=== PATIENT | female | born 1980 | race Caucasian/White ===

== ENCOUNTER 2019-05-01 07:58 | Inpatient (IN) ==
[2019-05-01] MEDS ORDERED: SODIUM CHLORIDE 0.9% 1000ML 1,000 ML IV SCH ×3 (08:30→18:45)
[2019-05-01] MEDS ORDERED: SODIUM CHLORIDE 0.9% 500 ML IV SCH (08:30)
[2019-05-01] MEDS ORDERED: ONDANSETRON INJ 2 MG/ML 2 ML VIAL IV STA (08:52)
[2019-05-01 09:30] LABS: Hemoglobin 12.3 g/dL (12.0-16.0); Mean Corpuscular Hemoglobin 30.3 pg (25-34); Mean Corpuscular Hgb Conc 33.2 g/dL (32-36); Mean Corpuscular Volume 91.1 fL (80-100); Mean Platelet Volume 9.9 fL (7.4-10.4); Platelet Count 361 K/uL (130-400); RDW Coefficient of Variation 13.2 % (11.5-14.5); RDW Standard Deviation 43.8 fL (36.4-46.3); Red Blood Count 4.06 M/uL (4.2-5.4); White Blood Count 17.59 K/uL (4.8-10.8)
[2019-05-01 09:52] LABS: Pregnancy Test, Serum Negative (Negative)
--- NOTE | 2019-05-01 09:52 | CT Scan Report ---
CT head/brain wo con CLINICAL HISTORY: 39 years-old Female with AMS. Acutely altered mental status TECHNIQUE: Multiple axial CT images of the head were obtained without contrast. A dose lowering tech nique was utilized adhering to the principles of ALARA. CT DOSE: 1003.45 mGycm COMPARISON: None. FINDINGS: Study is mildly motion degraded. No acute intracranial hemorrhage, midline shift, intracranial mass, hydrocephalus, territorial ischemia or abnormal extra-axial collection. The calvarium is intact. The paranasal sinuses, mastoid air cells, and middle ear cavities are clear . IMPRESSION: No acute intracranial abnormality. The above report was generated using voice recognition software. It may contain grammatical, syntax o r spelling errors. Electronically signed by: Mark Zavaleta M.D. 05/01/2019 9:50 AM
[2019-05-01 09:54] LABS: Basophils # (auto) 0.03 K/uL (0-0.2); Basophils % (auto) 0.2 %; Echinocytes 1+; Immature Granulocytes # (auto) 0.05 K/uL (0.00-0.02); Immature Granulocytes % (auto) 0.3 %; Lymphocytes # (auto) 0.91 K/uL (1.2-3.4); Lymphocytes % (auto) 5.2 %; Monocytes # (auto) 1.42 K/uL (0.11-0.59); Monocytes % (auto) 8.1 %; Neutrophils # (auto) 15.18 K/uL (1.4-6.5); Neutrophils % (auto) 86.2 %
[2019-05-01 09:57] LABS: Albumin Globulin Ratio 1.1 (0.9-2); Albumin Level 3.8 gm/dl (3.4-5.0); Alkaline Phosphatase 114 U/L (45-117); Aspartate Aminotransferase 20 U/L (15-37); Bilirubin,Total 0.5 mg/dl (0.2-1); Blood Urea Nitrogen 24 mg/dl (7-18); Calcium 9.5 mg/dl (8.5-10.1); Carbon Dioxide 14 mmol/L (21-32); Chloride 103 mmol/L (98-107); Est GFR (African American) 85.9; Est GFR (Non-African American) 74.1; Globulin 3.5 gm/dl (2.5-4.0); Glucose 444 mg/dl (70-99); Magnesium 2.2 mg/dl (1.8-2.4); Potassium 4.6 mmol/L (3.5-5.1); Sodium 137 mmol/L (136-145); Total Protein 7.3 gm/dl (6.4-8.2)
[2019-05-01 10:02] LABS: Alanine Aminotransferase 21 U/L (12-78); Thyroid Stimulating Hormone 0.865 uIu/ml (0.300-4.500); Troponin I < 0.015 ng/ml (0-0.045)
[2019-05-01] MEDS ORDERED: SODIUM CHLORIDE 0.9% 1000ML 1,000 ML IV ONE (10:08)
--- NOTE | 2019-05-01 10:19 | XRay Report ---
SINGLE VIEW CHEST CLINICAL HISTORY: Generalized weakness. FINDINGS: 2 AP, portable, upright chest radiographs are obtained. No prior studies are available for comparison at the time of dictation. The examination is degraded by portable technique and patient ro tation. The cardiomediastinal silhouette is unremarkable. The lungs and pleural spaces are clear. No pneumothorax is seen. The bony thorax is grossly intact. IMPRESSION: No active disease in the chest. Electronically signed by: Surya Alatorre M.D. 05/01/2019 10:17 AM
[2019-05-01 10:20] LABS: Appearance Urine Clear (Clear); Bilirubin Urine Negative (Negative); Blood Urine Negative (Negative); Color Urine Yellow; Glucose Urine UA 3+ (Negative); Leukocyte Esterase Urine Negative (Negative); Nitrite Urine Negative (Negative); Protein Urine Negative (Negative); Specific Gravity Urine 1.028 (1.000-1.030); Urobilinogen Urine Negative (Negative)
[2019-05-01 10:27] LABS: Ketones Urine 4+ (Negative)
[2019-05-01] MEDS ORDERED: MODERATE STRESS LEVEL ONE (10:33)
[2019-05-01] MEDS ORDERED: INSULIN PROTOCOL GOAL RANGE ONE (10:33)
[2019-05-01 10:44] LABS: Amphetamines+Metham, Urine Pos (Neg); Barbiturates, Urine Neg (Neg); Benzodiazepine, Urine Neg (Neg); Cocaine, Urine Neg (Neg); MDMA (Ecstacy), Urine Neg (Neg); Methadone, Urine Neg (Neg); Opiate, Urine Neg (Neg); Phencyclidine, Urine Neg (Neg)
[2019-05-01] MEDS ORDERED: INSULIN REGULAR 250 UNITS in SODIUM CHLORIDE 0.9% 247.5 ML IV SCH ×2 (10:45→13:32)
[2019-05-01] MEDS ORDERED: INSULIN ASPART 100 UNITS/ML 3 ML PEN SC SCH (11:30)
[2019-05-01] MEDS ORDERED: NovoLIN-R BOLUS FROM BAG IV ONE (11:30)
--- NOTE | 2019-05-01 12:09 | History & Physical Report ---
Date of Service May 01, 2019 Assessment & Plan (1) DKA (diabetic ketoacidoses): Patient with longstanding history of type 1 diabetes, insulin pump in place. She follows with endocrinology and reports that her pump is been malfunctioning for the last few weeks. She presents today with altered mental status. Labs reveal hyperglycemia with glucose = 444, anion gap = 20, serum bicarb = 14, patient with ketones and glucose on UA. Chest x-ray with no evidence of pneumonia, UA does not suggest infection. -Admit to PCU -Check VBG and serum osmolality -BMP/Mg/PO4/VBG q 4 hours. Potassium repletion as needed -N.p.o. for now -Continue aggressive IV fluid resuscitation. Will administer additional 1 L normal saline followed by normal saline at 150 mL/h with 20 mEq KCl -Insulin drip per protocol. Moderate stress level. DKA goal range -Diabetes education Present on Admission?: Yes (2) Migraine: Patient reports history of migraine. Presently without headache. -Monitor for headache Urine toxicology screen positive for amphetamines. Uncertain of patient's home medications. Result may indicate cross-reactivity versus true methamphetamine use. Patient denies recreational drug use. -Obtain records from PCP -Monitor for withdrawal symptoms FENnormal saline x1 L bolus followed by 150 mL/h with potassium, BMP/Mg/Phos every 4 hours per protocol, replete as needed, NPO for now. Smoking cessation counseling Ppx - Low risk for DVT. No ppx indicated Code - Full per schedule with patient Dispoadmit to PCU for DKA management Present on Admission?: Yes History of Present Illness Chief Complaint: DKA Primary Care Provider: NO PCP Gita Tracy is a 39-year-old female with history of type 1 diabetes since age 12, insulin pump in place, presenting with DKA. Patient is somnolent but arousable and is able to answer most questions appropriately at this time. However, is overall a poor historian. She reports that her insulin pump has not been functioning properly for at least the last 2 weeks. She states that she has been feeling "ill", nausea and body aches for the last 14 to 15 days. She has had DKA in the past, believes her last episode was about a month ago. She follows with Dr. Cárdenas and Ms. Watson of endocrinology from [facility]. She denies fevers, chills, headache, visual change, abdominal pain, diarrhea, chest pain, shortness of breath, cough, wheeze. She is having some nausea and is requesting "diet pop". No additional complaints at this time. ER course: Normal saline x2L, NSS at 125mL/hr, Insulin pump ordered, not yet initiated Allergies Allergy/AdvReac Type Severity Reaction Status Date / Time Penicillins Allergy Severe Throat Unverified 05/01/19 10:32 swells shut Home Medications Home Medications Medication Instructions Recorded Confirmed Type Unobtainable 05/01/19 05/01/19 History Past Med/Surg History Medical History (Updated 05/01/19 @ 12:03 by Sobeida Lombardo DO) Diabetes type I Migraine Surgical History (Updated 05/01/19 @ 11:54 by Sobeida Lombardo DO) History of Family History (Updated 05/01/19 @ 11:54 by Sobeida Lombardo DO) Other Family history non-contributory Social History (Updated 05/01/19 @ 11:54 by Sobeida Lombardo DO) Preferred Language: Azerbaijani Communication Ability: Effective 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 Beliefs That Will Affect Care: None Current Living Situation: Significant Other Other Information That Helps Us Care for You: No Feels Safe at Home: Declines to Answer Safety Concerns: Feels Safe At This Time Smoking Status: Current every day smoker Tobacco Type: cigarettes ; Do You Dip or Chew Tobacco: No ; Second Hand Exposure: No ; Tobacco Cessation Education Requested by Patient: No Hx Alcohol Use: Yes Alcohol Intake Frequency: Holidays/Special Occasions Hx Substance Use: No Review of Systems Review of Systems: All systems reviewed & are unremarkable except as noted in HPI & below Physical Exam Physical Exam: General: patient somnolent, arousable, answering questions appropriately and following commands, NAD, non-toxic in appearance, AA&O x 4 Skin: warm, dry, intact, no rashes or lesions HEENT: NC/AT, PERRL, EOMI, anicteric sclera, conjunctiva without injection, external ear normal to inspection and nontender, nares patent, dry mucus membranes, dentition intact, no oropharyngeal lesions, neck supple, trachea midline, no LAD, no thyromegaly, no JVD Heart: +S1/S2, regular, tachycardic, 2/6 systolic ejection murmur at left sternal border, no rubs or gallops Lungs: equal air entry bilaterally, no rales/rhonchi/wheezes Abd: +BS, soft, NT/ND, no masses/organomegaly/ascites Ext: warm, 2+ pulses in UE/LE bilaterally, no clubbing/cyanosis or edema Neuro: nonfocal, patient AA&O x 4, speech intact, no facial droop, moving all extremities on command with equal strength 5/5 Results & Data Vital Signs (Past 12 Hours) Vital Signs Temp Pulse Resp BP Pulse Ox 05/01/19 10:00 117 H 24 133/79 99 05/01/19 09:30 119 H 24 147/87 H 100 05/01/19 09:00 116 H 19 146/94 H 05/01/19 08:30 122 H 17 129/99 100 05/01/19 08:25 100 05/01/19 08:18 36.6 C 123 H 20 138/90 100 05/01/19 08:12 116 H 22 138/90 100 Laboratory Results Lab Results 05/01/19 05/01/19 05/01/19 Range/Units 08:07 09:12 09:12 WBC 17.59 H (4.8-10.8) K/uL RBC 4.06 L (4.2-5.4) M/uL Hgb 12.3 (12.0-16.0) g/dL Hct 37.0 (37-47) % MCV 91.1 (80-100) fL MCH 30.3 (25-34) pg MCHC 33.2 (32-36) g/dL RDW Std Deviation 43.8 (36.4-46.3) fL RDW Coeff of Alisa 13.2 (11.5-14.5) % Plt Count 361 (130-400) K/uL MPV 9.9 (7.4-10.4) fL Immature Gran % (Auto) 0.3 % Neut % (Auto) 86.2 % Lymph % (Auto) 5.2 % Scott % (Auto) 8.1 % Eos % (Auto) 0.0 % Baso % (Auto) 0.2 % Immature Gran # (Auto) 0.05 H (0.00-0.02) K/uL Neut # (Auto) 15.18 H (1.4-6.5) K/uL Lymph # (Auto) 0.91 L (1.2-3.4) K/uL Scott # (Auto) 1.42 H (0.11-0.59) K/uL Eos # (Auto) 0.00 (0-0.5) K/uL Baso # (Auto) 0.03 (0-0.2) K/uL Echinocytes 1+ Sodium 137 (136-145) mmol/L Potassium 4.6 (3.5-5.1) mmol/L Chloride 103 (98-107) mmol/L Carbon Dioxide 14 L (21-32) mmol/L Anion Gap 20.0 H (3-11) BUN 24 H (7-18) mg/dl Creatinine 0.97 (0.6-1.2) mg/dl Est Cr Clr Drug Dosing Not Reportable Est GFR ( Amer) 85.9 Est GFR (Non-Af Amer) 74.1 BUN/Creatinine Ratio 25.0 H (10-20) Glucose 444 H* (70-99) mg/dl POC Glucose 419 H* (70-99) Calcium 9.5 (8.5-10.1) mg/dl Magnesium 2.2 (1.8-2.4) mg/dl Total Bilirubin 0.5 (0.2-1) mg/dl AST 20 (15-37) U/L ALT 21 (12-78) U/L Alkaline Phosphatase 114 (45-117) U/L Troponin I < 0.015 (0-0.045) ng/ml Total Protein 7.3 (6.4-8.2) gm/dl Albumin 3.8 (3.4-5.0) gm/dl Globulin 3.5 (2.5-4.0) gm/dl Albumin/Globulin Ratio 1.1 (0.9-2) Beta-Hydroxybutyric Acd Cancelled TSH 0.865 (0.300-4.500) uIu/ml HCG, Qual (Negative) Specimen Hemolysis Urine Color Urine Appearance (Clear) Urine pH (4.5-7.5) Ur Specific Frannie (1.000-1.030) Urine Protein (Negative) Urine Glucose (UA) (Negative) Urine Ketones (Negative) Urine Blood (Negative) Urine Nitrite (Negative) Urine Bilirubin (Negative) Urine Urobilinogen (Negative) Ur Leukocyte Esterase (Negative) Urine Opiates Screen (Neg) Ur Methadone, Qual (Neg) Urine Barbiturates (Neg) Ur Phencyclidine (PCP) (Neg) U Amphetamin/Meth Scrn (Neg) MDMA (Ecstasy) Screen (Neg) U Benzodiazepines Scrn (Neg) Ur Cocaine Metabolite (Neg) U Marijuana (THC) Screen (Neg) 05/01/19 05/01/19 05/01/19 Range/Units 09:12 10:04 10:04 WBC (4.8-10.8) K/uL RBC (4.2-5.4) M/uL Hgb (12.0-16.0) g/dL Hct (37-47) % MCV (80-100) fL MCH (25-34) pg MCHC (32-36) g/dL RDW Std Deviation (36.4-46.3) fL RDW Coeff of Alisa (11.5-14.5) % Plt Count (130-400) K/uL MPV (7.4-10.4) fL Immature Gran % (Auto) % Neut % (Auto) % Lymph % (Auto) % Scott % (Auto) % Eos % (Auto) % Baso % (Auto) % Immature Gran # (Auto) (0.00-0.02) K/uL Neut # (Auto) (1.4-6.5) K/uL Lymph # (Auto) (1.2-3.4) K/uL Scott # (Auto) (0.11-0.59) K/uL Eos # (Auto) (0-0.5) K/uL Baso # (Auto) (0-0.2) K/uL Echinocytes Sodium (136-145) mmol/L Potassium (3.5-5.1) mmol/L Chloride (98-107) mmol/L Carbon Dioxide (21-32) mmol/L Anion Gap (3-11) BUN (7-18) mg/dl Creatinine (0.6-1.2) mg/dl Est Cr Clr Drug Dosing Est GFR ( Amer) Est GFR (Non-Af Amer) BUN/Creatinine Ratio (10-20) Glucose (70-99) mg/dl POC Glucose (70-99) Calcium (8.5-10.1) mg/dl Magnesium (1.8-2.4) mg/dl Total Bilirubin (0.2-1) mg/dl AST (15-37) U/L ALT (12-78) U/L Alkaline Phosphatase (45-117) U/L Troponin I (0-0.045) ng/ml Total Protein (6.4-8.2) gm/dl Albumin (3.4-5.0) gm/dl Globulin (2.5-4.0) gm/dl Albumin/Globulin Ratio (0.9-2) Beta-Hydroxybutyric Acd TSH (0.300-4.500) uIu/ml HCG, Qual Negative (Negative) Specimen Hemolysis Urine Color Yellow Urine Appearance Clear (Clear) Urine pH 5.0 (4.5-7.5) Ur Specific Frannie 1.028 (1.000-1.030) Urine Protein Negative (Negative) Urine Glucose (UA) 3+ H (Negative) Urine Ketones 4+ H (Negative) Urine Blood Negative (Negative) Urine Nitrite Negative (Negative) Urine Bilirubin Negative (Negative) Urine Urobilinogen Negative (Negative) Ur Leukocyte Esterase Negative (Negative) Urine Opiates Screen Neg (Neg) Ur Methadone, Qual Neg (Neg) Urine Barbiturates Neg (Neg) Ur Phencyclidine (PCP) Neg (Neg) U Amphetamin/Meth Scrn Pos H (Neg) MDMA (Ecstasy) Screen Neg (Neg) U Benzodiazepines Scrn Neg (Neg) Ur Cocaine Metabolite Neg (Neg) U Marijuana (THC) Screen Neg (Neg) 05/01/19 Range/Units 11:07 WBC (4.8-10.8) K/uL RBC (4.2-5.4) M/uL Hgb (12.0-16.0) g/dL Hct (37-47) % MCV (80-100) fL MCH (25-34) pg MCHC (32-36) g/dL RDW Std Deviation (36.4-46.3) fL RDW Coeff of Alisa (11.5-14.5) % Plt Count (130-400) K/uL MPV (7.4-10.4) fL Immature Gran % (Auto) % Neut % (Auto) % Lymph % (Auto) % Scott % (Auto) % Eos % (Auto) % Baso % (Auto) % Immature Gran # (Auto) (0.00-0.02) K/uL Neut # (Auto) (1.4-6.5) K/uL Lymph # (Auto) (1.2-3.4) K/uL Scott # (Auto) (0.11-0.59) K/uL Eos # (Auto) (0-0.5) K/uL Baso # (Auto) (0-0.2) K/uL Echinocytes Sodium (136-145) mmol/L Potassium (3.5-5.1) mmol/L Chloride (98-107) mmol/L Carbon Dioxide (21-32) mmol/L Anion Gap (3-11) BUN (7-18) mg/dl Creatinine (0.6-1.2) mg/dl Est Cr Clr Drug Dosing Est GFR ( Amer) Est GFR (Non-Af Amer) BUN/Creatinine Ratio (10-20) Glucose (70-99) mg/dl POC Glucose 405 H* (70-99) Calcium (8.5-10.1) mg/dl Magnesium (1.8-2.4) mg/dl Total Bilirubin (0.2-1) mg/dl AST (15-37) U/L ALT (12-78) U/L Alkaline Phosphatase (45-117) U/L Troponin I (0-0.045) ng/ml Total Protein (6.4-8.2) gm/dl Albumin (3.4-5.0) gm/dl Globulin (2.5-4.0) gm/dl Albumin/Globulin Ratio (0.9-2) Beta-Hydroxybutyric Acd TSH (0.300-4.500) uIu/ml HCG, Qual (Negative) Specimen Hemolysis Urine Color Urine Appearance (Clear) Urine pH (4.5-7.5) Ur Specific Frannie (1.000-1.030) Urine Protein (Negative) Urine Glucose (UA) (Negative) Urine Ketones (Negative) Urine Blood (Negative) Urine Nitrite (Negative) Urine Bilirubin (Negative) Urine Urobilinogen (Negative) Ur Leukocyte Esterase (Negative) Urine Opiates Screen (Neg) Ur Methadone, Qual (Neg) Urine Barbiturates (Neg) Ur Phencyclidine (PCP) (Neg) U Amphetamin/Meth Scrn (Neg) MDMA (Ecstasy) Screen (Neg) U Benzodiazepines Scrn (Neg) Ur Cocaine Metabolite (Neg) U Marijuana (THC) Screen (Neg) Diagnostic Findings SINGLE VIEW CHEST CLINICAL HISTORY: Generalized weakness. FINDINGS: 2 AP, portable, upright chest radiographs are obtained. No prior studies are available for comparison at the time of dictation. The examination is degraded by portable technique and patient rotation. The cardiomediastinal silhouette is unremarkable. The lungs and pleural spaces are clear. No pneumothorax is seen. The bony thorax is grossly intact. IMPRESSION: No active disease in the chest. Electronically signed by: Surya Alatorre M.D. 05/01/2019 10:17 AM Dictated: 05/01/19 1016 Transcribed: 05/01/[address] head/brain wo con CLINICAL HISTORY: 39 years-old Female with AMS. Acutely altered mental status TECHNIQUE: Multiple axial CT images of the head were obtained without contrast. A dose lowering technique was utilized adhering to the principles of ALARA. CT DOSE: 1003.45 mGycm COMPARISON: None. FINDINGS: Study is mildly motion degraded. No acute intracranial hemorrhage, midline shift, intracranial mass, hydrocephalus, territorial ischemia or abnormal extra- axial collection. The calvarium is intact. The paranasal sinuses, mastoid air cells, and middle ear cavities are clear. IMPRESSION: No acute intracranial abnormality. The above report was generated using voice recognition software. It may contain grammatical, syntax or spelling errors. Electronically signed by: Mark Zavaleta M.D. 05/01/2019 9:50 AM Dictated: 05/01/19943 Transcribed: 05/01/19943 ECG Additional Comments: The study shows sinus tachycardia 115 bpm, normal axis, SC = 144, QRS = 64, QTc = 431, no acute ischemic changes Code Status & VTE Plan Code Status Full code VTE Prophylaxis Plan VTE Prophylaxis will be ordered: No Reason for no VTE drug order: Treatment not indicated Reason for no VTE mechanical prophylaxis: Treatment not indicated PG Care Time/CCT Total # of Minutes Spent Total Time Spent with Patient: Total time spent is greater than 50% in coordination of care (as documented) at patient's floor/unit and/or counseling patient: (1) DKA (diabetic ketoacidoses) Diabetes mellitus type: type 1 Diabetes mellitus complication detail: without coma Qualified Code(s): E10.10 - Type 1 diabetes mellitus with ketoacidosis without coma (2) Migraine Migraine type: unspecified Status migrainosus presence: without status migrainosus Intractability: not intractable Qualified Code(s): G43.909 - Migraine, unspecified, not intractable, without status migrainosus
[2019-05-01] MEDS ORDERED: ACETAMINOPHEN 325 MG TAB PO PRN (13:32)
[2019-05-01] MEDS ORDERED: PENDING D5 1/2NS+20mEq KCL IVF SCH (13:32)
[2019-05-01] MEDS ORDERED: DC ALL PREVIOUSLY ORDERED DIABETES MEDS ONE (13:32)
[2019-05-01] MEDS ORDERED: ONDANSETRON INJ 2 MG/ML 2 ML VIAL IV PRN (13:32)
[2019-05-01] MEDS ORDERED: DKA GOAL RANGE 150-250 mg/dl ONE (13:32)
[2019-05-01] MEDS ORDERED: PNEUMOCOCCAL Polysaccharide Vaccine 25mcg/0.5mL vial/Syr IM ONE (14:00)
[2019-05-01 14:01] LABS: Base Excess VBG -12.1 mEq/L; pH VBG 7.27 (7.36-7.41)
[2019-05-01] MEDS ORDERED: D5W AND 1/2NSS + 20MEQ KCL 20 MEQ/1,000 ML BAG IV SCH (14:15)
[2019-05-01 14:24] LABS: BUN Creatinine Ratio 23.5 (10-20); Creatinine Clr Calc Pharmacy 69.8 ml/min; Est GFR (African American) 96.6; Est GFR (Non-African American) 83.3; Magnesium 2.1 mg/dl (1.8-2.4); Phosphorus 2.5 mg/dl (2.5-4.9); Potassium 3.8 mmol/L (3.5-5.1)
[2019-05-01 14:28] LABS: Estimated Average Glucose 217 mg/dl; Hemoglobin A1C 9.2 % (4.5-5.6)
[2019-05-01] MEDS ORDERED: POTASSIUM CHLORIDE 20 MEQ in SODIUM CHLORIDE 0.9% 1000ML 1,000 ML IV SCH (15:00)
--- NOTE | 2019-05-01 15:04 | Emergency Department Note ---
Entered by Joel Good acting as a scribe for ED Provider Note CHIEF COMPLAINT: Hyperglycemia HISTORY OF PRESENT ILLNESS: The patient is a 39 year old female who presents to the Emergency Room with complaints of constant hyperglycemia that was noticed this morning shortly prior to arrival. Per the nursing note, the patient's significant other noticed that she had an altered mental status this morning as well as some nausea and vomiting. Per the nurse, the patient's BSG at home was 350 and when EMS arrived it had increased to 450. Upon arrival to the ED the patient's sugar was 419. The patient has had a history of diabetes since 2002 and has had incidents in the past where she could not control her sugars. HPI is limited secondary to patient's altered mental status. Pt denies LOC, headache, fevers, chills, diaphoresis, visual changes, neck pain, chest pain, breathing difficulties, abdominal pain, back pain, melena, hematochezia, urinary symptoms, numbness, weakness, lymphadenopathy, rash, or other complaints. REVIEW OF SYSTEMS: See HPI for pertinent positives and negatives. Limited secondary to patient's altered mental status. PMHx/PSHx: Diabetes, , Appendectomy SOCIAL HISTORY: Patient lives at home. Daily smoker. PHYSICAL EXAM: GENERAL: Awake, alert, well-appearing, in no distress HENT: Normocephalic, atraumatic. Oropharynx unremarkable. EYES: Normal conjunctiva. Sclera non-icteric. NECK: EJ in right neck. Non-tender. Supple. No nuchal rigidity. FROM. No masses. RESPIRATORY: Clear to auscultation. No wheezes. No rales. Normal respiratory effort. CARDIAC: Normal rate. Normal rhythm. No murmurs. No rubs. Extremities warm and well perfused. Pulses equal. No JVD. GI: Soft, non-distended. No tenderness to palpation. No rebound or guarding. No masses. RECTAL: Deferred. MUSCULOSKELETAL: Atraumatic. Chest examination reveals no tenderness. The back is symmetrical on inspection without obvious abnormality. There is no CVA tenderness to palpation. No joint edema. LOWER EXTREMITIES: Calves are equal size bilaterally and non-tender. No edema. No discoloration. NEURO: Normal sensorium. Lethargic but arouses easily to verbal stimuli, GCS 14. No sensory or motor deficits noted. SKIN: No rash or jaundice noted. EMERGENCY DEPARTMENT COURSE: 36: Past medical records reviewed. The patient was evaluated in room A04B, and a complete history and physical examination were performed. 0850: Shortly after the examination the patient tried to drink some water, however she became nauseous and vomited. 1035: I reassessed the patient and she is feeling better. I updated her on results and treatment plan and she is agreeable. 1045: I spoke to Dr. Lombardo - [facility] Hospitalist about the patient's case and she will be accepting her for further evaluation. MEDICAL DECISION MAKING: Nursing notes reviewed and agree them. The patient's history was concerning for altered mental status. Differential diagnosis: Etiologies such as infection, hypoglycemia, electrolyte abnormalities, cardiac sources, intracerebral event, toxicologic, neurologic, as well as others were entertained. Physical examination: As above. The patient was lethargic but easily arousable to voice. She denied any headache, chest pain, abdominal pain. No abdominal physical findings. ER treatment provided: IV Lock Normal saline hydration IV insulin On reassessment the patient felt better. Diagnostics interpretation by me: ECG: Sinus tachycardia without ischemia. The labs revealed a moderate leukocytosis on CBC. Chemistry panel revealed findings concerning for DKA. Troponin negative. Urine drug screen did reveal amphetamines. Urinalysis negative for infection. Patient is not . Imaging studies: Chest x-ray negative for acute process. Head CT negative for acute process. The patient had altered mental status and hyperglycemia. Laboratory findings are consistent with DKA. She was started on IV fluids and then IV insulin was initiated. Further management in the hospital will be necessary. Consultation: A consultation was placed with the hospitalist. The case was discussed and diagnostics were reviewed. The patient was evaluated in the ER for further treatment. CRITICAL CARE: I have personally spent greater than 35 minutes of critical care time in the direct management of this patient. This includes bedside care, interpretation of diagnostic studies, and testing, discussion with consultants, patient, and other required patient management activities. This 35 minutes is in excess of all separately billable procedures. IMPRESSION: Altered mental status DKA PLAN: Being evaluated by hospitalist The scribe's documentation has been prepared under my direction and personally reviewed by me in its entirety. I confirm that the note above accurately reflects all work, treatment, procedures, and medical decision making performed by me. 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 Beliefs That Will Affect Care: None Current Living Situation: Significant Other Feels Safe at Home: Declines to Answer Smoking Status: Current every day smoker Tobacco Type: cigarettes ; Second Hand Exposure: No ; Hx Alcohol Use: Yes Alcohol Intake Frequency: Holidays/Special Occasions Hx Substance Use: No Results & Data Vital Signs Vital Signs - 24 hr 05/01/19 08:12 05/01/19 08:18 05/01/19 08:25 Temperature 36.6 C Temperature Source Oral Pulse Rate 116 H 123 H Pulse Rate from SpO2 Sensor 114 H Pulse Rhythm Regular Pulse Strength Normal Respiratory Rate 22 20 Respiratory Effort / Characteristics Non-Labored Spontaneous Respiratory Depth Normal Respiratory Pattern Regular Blood Pressure 138/90 138/90 Blood Pressure Mean 109 106 Blood Pressure Position Lying Pulse Oximetry 100 100 100 Oxygen Delivery Method Room Air Sepsis New/Unexplained Change in Mental Status No Sepsis Action Taken by Nursing No Action Required 05/01/19 08:30 05/01/19 09:00 05/01/19 09:30 Temperature Temperature Source Pulse Rate 122 H 116 H 119 H Pulse Rate from SpO2 Sensor 122 H 119 H Pulse Rhythm Pulse Strength Respiratory Rate 17 19 24 Respiratory Effort / Characteristics Respiratory Depth Respiratory Pattern Blood Pressure 129/99 146/94 H 147/87 H Blood Pressure Mean 113 99 106 Blood Pressure Position Pulse Oximetry 100 100 Oxygen Delivery Method Sepsis New/Unexplained Change in Mental Status Sepsis Action Taken by Nursing 05/01/19 10:00 05/01/19 10:30 05/01/19 10:31 Temperature Temperature Source Pulse Rate 117 H 117 H 118 H Pulse Rate from SpO2 Sensor 118 H 118 H Pulse Rhythm Pulse Strength Respiratory Rate 24 21 21 Respiratory Effort / Characteristics Respiratory Depth Respiratory Pattern Blood Pressure 133/79 137/86 Blood Pressure Mean 88 103 Blood Pressure Position Pulse Oximetry 99 99 99 Oxygen Delivery Method Sepsis New/Unexplained Change in Mental Status Sepsis Action Taken by Nursing 05/01/19 11:00 05/01/19 11:01 05/01/19 11:30 Temperature Temperature Source Pulse Rate 120 H 120 H 122 H Pulse Rate from SpO2 Sensor 120 H 120 H Pulse Rhythm Pulse Strength Respiratory Rate 22 23 21 Respiratory Effort / Characteristics Respiratory Depth Respiratory Pattern Blood Pressure 130/79 120/80 Blood Pressure Mean 94 87 Blood Pressure Position Pulse Oximetry 100 100 Oxygen Delivery Method Sepsis New/Unexplained Change in Mental Status Sepsis Action Taken by Nursing 05/01/19 11:31 Temperature Temperature Source Pulse Rate 123 H Pulse Rate from SpO2 Sensor Pulse Rhythm Pulse Strength Respiratory Rate 23 Respiratory Effort / Characteristics Respiratory Depth Respiratory Pattern Blood Pressure Blood Pressure Mean Blood Pressure Position Pulse Oximetry Oxygen Delivery Method Sepsis New/Unexplained Change in Mental Status Sepsis Action Taken by Assisted Medications Current Medication List: was personally reviewed by me Laboratory Data Attestation: I reviewed the patient's lab results. Result diagrams: 05/01/19 09:12 05/01/19 13:32 Lab Results 05/01/19 05/01/19 05/01/19 Range/Units 08:07 09:12 09:12 WBC 17.59 H (4.8-10.8) K/uL RBC 4.06 L (4.2-5.4) M/uL Hgb 12.3 (12.0-16.0) g/dL Hct 37.0 (37-47) % MCV 91.1 (80-100) fL MCH 30.3 (25-34) pg MCHC 33.2 (32-36) g/dL RDW Std Deviation 43.8 (36.4-46.3) fL RDW Coeff of Alisa 13.2 (11.5-14.5) % Plt Count 361 (130-400) K/uL MPV 9.9 (7.4-10.4) fL Immature Gran % (Auto) 0.3 % Neut % (Auto) 86.2 % Lymph % (Auto) 5.2 % Dawson % (Auto) 8.1 % Eos % (Auto) 0.0 % Baso % (Auto) 0.2 % Immature Gran # (Auto) 0.05 H (0.00-0.02) K/uL Neut # (Auto) 15.18 H (1.4-6.5) K/uL Lymph # (Auto) 0.91 L (1.2-3.4) K/uL Dawson # (Auto) 1.42 H (0.11-0.59) K/uL Eos # (Auto) 0.00 (0-0.5) K/uL Baso # (Auto) 0.03 (0-0.2) K/uL Echinocytes 1+ Sodium 137 (136-145) mmol/L Potassium 4.6 (3.5-5.1) mmol/L Chloride 103 (98-107) mmol/L Carbon Dioxide 14 L (21-32) mmol/L Anion Gap 20.0 H (3-11) BUN 24 H (7-18) mg/dl Creatinine 0.97 (0.6-1.2) mg/dl Est Cr Clr Drug Dosing Not Reportable Est GFR ( Amer) 85.9 Est GFR (Non-Af Amer) 74.1 BUN/Creatinine Ratio 25.0 H (10-20) Glucose 444 H* (70-99) mg/dl POC Glucose 419 H* (70-99) Calcium 9.5 (8.5-10.1) mg/dl Magnesium 2.2 (1.8-2.4) mg/dl Total Bilirubin 0.5 (0.2-1) mg/dl AST 20 (15-37) U/L ALT 21 (12-78) U/L Alkaline Phosphatase 114 (45-117) U/L Troponin I < 0.015 (0-0.045) ng/ml Total Protein 7.3 (6.4-8.2) gm/dl Albumin 3.8 (3.4-5.0) gm/dl Globulin 3.5 (2.5-4.0) gm/dl Albumin/Globulin Ratio 1.1 (0.9-2) Beta-Hydroxybutyric Acd Cancelled TSH 0.865 (0.300-4.500) uIu/ml HCG, Qual (Negative) Specimen Hemolysis Urine Color Urine Appearance (Clear) Urine pH (4.5-7.5) Ur Specific [place] (1.000-1.030) Urine Protein (Negative) Urine Glucose (UA) (Negative) Urine Ketones (Negative) Urine Blood (Negative) Urine Nitrite (Negative) Urine Bilirubin (Negative) Urine Urobilinogen (Negative) Ur Leukocyte Esterase (Negative) Urine Opiates Screen (Neg) Ur Methadone, Qual (Neg) Urine Barbiturates (Neg) Ur Phencyclidine (PCP) (Neg) U Amphetamin/Meth Scrn (Neg) MDMA (Ecstasy) Screen (Neg) U Benzodiazepines Scrn (Neg) Ur Cocaine Metabolite (Neg) U Marijuana (THC) Screen (Neg) 05/01/19 05/01/19 05/01/19 Range/Units 09:12 10:04 10:04 WBC (4.8-10.8) K/uL RBC (4.2-5.4) M/uL Hgb (12.0-16.0) g/dL Hct (37-47) % MCV (80-100) fL MCH (25-34) pg MCHC (32-36) g/dL RDW Std Deviation (36.4-46.3) fL RDW Coeff of Alisa (11.5-14.5) % Plt Count (130-400) K/uL MPV (7.4-10.4) fL Immature Gran % (Auto) % Neut % (Auto) % Lymph % (Auto) % Dawson % (Auto) % Eos % (Auto) % Baso % (Auto) % Immature Gran # (Auto) (0.00-0.02) K/uL Neut # (Auto) (1.4-6.5) K/uL Lymph # (Auto) (1.2-3.4) K/uL [place] # (Auto) (0.11-0.59) K/uL Eos # (Auto) (0-0.5) K/uL Baso # (Auto) (0-0.2) K/uL Echinocytes Sodium (136-145) mmol/L Potassium (3.5-5.1) mmol/L Chloride (98-107) mmol/L Carbon Dioxide (21-32) mmol/L Anion Gap (3-11) BUN (7-18) mg/dl Creatinine (0.6-1.2) mg/dl Est Cr Clr Drug Dosing Est GFR ( Amer) Est GFR (Non-Af Amer) BUN/Creatinine Ratio (10-20) Glucose (70-99) mg/dl POC Glucose (70-99) Calcium (8.5-10.1) mg/dl Magnesium (1.8-2.4) mg/dl Total Bilirubin (0.2-1) mg/dl AST (15-37) U/L ALT (12-78) U/L Alkaline Phosphatase (45-117) U/L Troponin I (0-0.045) ng/ml Total Protein (6.4-8.2) gm/dl Albumin (3.4-5.0) gm/dl Globulin (2.5-4.0) gm/dl Albumin/Globulin Ratio (0.9-2) Beta-Hydroxybutyric Acd TSH (0.300-4.500) uIu/ml HCG, Qual Negative (Negative) Specimen Hemolysis Urine Color Yellow Urine Appearance Clear (Clear) Urine pH 5.0 (4.5-7.5) Ur Specific [place] 1.028 (1.000-1.030) Urine Protein Negative (Negative) Urine Glucose (UA) 3+ H (Negative) Urine Ketones 4+ H (Negative) Urine Blood Negative (Negative) Urine Nitrite Negative (Negative) Urine Bilirubin Negative (Negative) Urine Urobilinogen Negative (Negative) Ur Leukocyte Esterase Negative (Negative) Urine Opiates Screen Neg (Neg) Ur Methadone, Qual Neg (Neg) Urine Barbiturates Neg (Neg) Ur Phencyclidine (PCP) Neg (Neg) U Amphetamin/Meth Scrn Pos H (Neg) MDMA (Ecstasy) Screen Neg (Neg) U Benzodiazepines Scrn Neg (Neg) Ur Cocaine Metabolite Neg (Neg) U Marijuana (THC) Screen Neg (Neg) 05/01/19 Range/Units 11:07 WBC (4.8-10.8) K/uL RBC (4.2-5.4) M/uL Hgb (12.0-16.0) g/dL Hct (37-47) % MCV (80-100) fL MCH (25-34) pg MCHC (32-36) g/dL RDW Std Deviation (36.4-46.3) fL RDW Coeff of Alisa (11.5-14.5) % Plt Count (130-400) K/uL MPV (7.4-10.4) fL Immature Gran % (Auto) % Neut % (Auto) % Lymph % (Auto) % Dawson % (Auto) % Eos % (Auto) % Baso % (Auto) % Immature Gran # (Auto) (0.00-0.02) K/uL Neut # (Auto) (1.4-6.5) K/uL Lymph # (Auto) (1.2-3.4) K/uL [place] # (Auto) (0.11-0.59) K/uL Eos # (Auto) (0-0.5) K/uL Baso # (Auto) (0-0.2) K/uL Echinocytes Sodium (136-145) mmol/L Potassium (3.5-5.1) mmol/L Chloride (98-107) mmol/L Carbon Dioxide (21-32) mmol/L Anion Gap (3-11) BUN (7-18) mg/dl Creatinine (0.6-1.2) mg/dl Est Cr Clr Drug Dosing Est GFR ( Amer) Est GFR (Non-Af Amer) BUN/Creatinine Ratio (10-20) Glucose (70-99) mg/dl POC Glucose 405 H* (70-99) Calcium (8.5-10.1) mg/dl Magnesium (1.8-2.4) mg/dl Total Bilirubin (0.2-1) mg/dl AST (15-37) U/L ALT (12-78) U/L Alkaline Phosphatase (45-117) U/L Troponin I (0-0.045) ng/ml Total Protein (6.4-8.2) gm/dl Albumin (3.4-5.0) gm/dl Globulin (2.5-4.0) gm/dl Albumin/Globulin Ratio (0.9-2) Beta-Hydroxybutyric Acd TSH (0.300-4.500) uIu/ml HCG, Qual (Negative) Specimen Hemolysis Urine Color Urine Appearance (Clear) Urine pH (4.5-7.5) Ur Specific [place] (1.000-1.030) Urine Protein (Negative) Urine Glucose (UA) (Negative) Urine Ketones (Negative) Urine Blood (Negative) Urine Nitrite (Negative) Urine Bilirubin (Negative) Urine Urobilinogen (Negative) Ur Leukocyte Esterase (Negative) Urine Opiates Screen (Neg) Ur Methadone, Qual (Neg) Urine Barbiturates (Neg) Ur Phencyclidine (PCP) (Neg) U Amphetamin/Meth Scrn (Neg) MDMA (Ecstasy) Screen (Neg) U Benzodiazepines Scrn (Neg) Ur Cocaine Metabolite (Neg) U Marijuana (THC) Screen (Neg) Administered Medications Insulin Human Regular 250 (units/ Sodium Chloride) 250 mls @ 1 mls/hr IV .Q24H JEF; Protocol Stop: 05/31/19 10:44 Last Titration: 05/01/19 14:00 Dose: 1 units/hr, 1 mls/hr Documented by: [id number] Cosigned by: [id number] Titration: 05/01/19 12:50 Dose: 1.3 units/hr, 1.3 mls/hr Documented by: [id number] Cosigned by: [id number] Admin: 05/01/19 11:48 Dose: 1.3 units/hr, 1.3 mls/hr Documented by: [id number] Cosigned by: [id number] Discontinued Medications Sodium Chloride (Nss) 500 mls @ 999 mls/hr IV .Q31M JEF Stop: 05/01/19 09:00 Last Infusion: 05/01/19 09:42 Dose: 0 mls/hr Documented by: [id number] Admin: 05/01/19 09:00 Dose: 999 mls/hr Documented by: [id number] Sodium Chloride (Nss 1000ml) 1,000 mls @ 125 mls/hr IV .Q8H JEF Stop: 05/01/19 16:29 Last Infusion: 05/01/19 11:15 Dose: 125 mls/hr Documented by: [id number] Infusion: 05/01/19 10:13 Dose: 0 mls/hr Documented by: [id number] Admin: 05/01/19 09:45 Dose: 125 mls/hr Documented by: [id number] Sodium Chloride (Nss 1000ml) 1,000 mls @ 999 mls/hr IV .Q1H1M ONE Stop: 05/01/19 11:08 Last Infusion: 05/01/19 11:15 Dose: 0 mls/hr Documented by: [id number] Admin: 05/01/19 10:14 Dose: 999 mls/hr Documented by: [id number] Insulin Aspart (Novolog Flexpen) 0 units SC ACHS JEF Stop: 05/31/19 11:29 Last Admin: 05/01/19 13:36 Dose: Not Given Documented by: [id number] Cosigned by: [id number] Insulin Human Regular (Novolin R Bolus From Bag) 1.5 units IV ONE ONE Stop: 05/01/19 11:31 Last Admin: 05/01/19 11:49 Dose: 1.5 units Documented by: [id number] Cosigned by: [id number] Miscellaneous (Insulin Protocol Goal Range) 1 ea N/A ONE ONE Stop: 05/01/19 10:34 Last Admin: 05/01/19 11:49 Dose: 1 ea Documented by: [id number] Miscellaneous (Insulin Protocol Moderate Stress Level) 1 ea N/A ONE ONE Stop: 05/01/19 10:34 Last Admin: 05/01/19 11:49 Dose: 1 ea Documented by: [id number] Ondansetron HCl (Zofran) 4 mg IV NOW STA Stop: 05/01/19 08:53 Last Admin: 05/01/19 09:00 Dose: 4 mg Documented by: [id number] Imaging Data Radiologist's Impression: Radiology results as stated below per my review and the radiologist's interpretation: SINGLE VIEW CHEST CLINICAL HISTORY: Generalized weakness. FINDINGS: 2 AP, portable, upright chest radiographs are obtained. No prior studies are available for comparison at the time of dictation. The examination is degraded by portable technique and patient rotation. The cardiomediastinal si lhouette is unremarkable. The lungs and pleural spaces are clear. No pneumothorax is seen. The bony thorax is grossly intact. IMPRESSION: No active disease in the chest. Electronically signed by: Surya Alatorre M.D. 05/01/2019 10:[address] head/brain wo con CLINICAL HISTORY: 39 years-old Female with AMS. Acutely altered mental status TECHNIQUE: Multiple axial CT images of the head were obtained without contrast. A dose lowering technique was utilized adhering to the principles of ALARA. CT DOSE: 1003.45 mGycm COMPARISON: None. FINDINGS: Study is mildly motion degraded. No acute intracranial hemorrhage, midline shift, intracranial mass, hydrocephalus, territorial ischemia or abnormal extra- axial collection. The calvarium is intact. The paranasal sinuses, mastoid air cells, and middle ear cavities are clear. IMPRESSION: No acute intracranial abnormality. The above report was generated using voice recognition software. It may contain grammatical, syntax or spelling errors. Electronically signed by: Mark Zavaleta M.D. 05/01/2019 9:50 AM ECG Data Attestation: I personally reviewed and interpreted this ECG as follows: Indication: + altered mental status Rate (beats per minute): 115 Rhythm: sinus tachycardia ECG Intervals/blocks: + Normal QRS ECG [place]: + Normal ECG ST segments: no ST depression and no ST elevation ECG Findings: no PACs and no PVCs Blood Pressure Blood Pressure Findings: Elevated blood pressure Blood Pressure Disposition: Referred to patients primary care provider Discharge Plan Visit Data *Final* Discharge Date/Time: 05/01/19 12:50 Chief Complaint: Hyperglycemia ED Provider: Salinas Fernandez Discharge Problem: Altered mental status, DKA (diabetic ketoacidoses) Patient Disposition: Admitted As Inpatient Discharge Instructions Interventions: ED Discharge Assessment Last Done: 05/01/19 12:50 Discharge Problem: Altered mental status Qualifiers: Altered mental status type: unspecified Qualified Code(s): R41.82 - Altered mental status, unspecified DKA (diabetic ketoacidoses) Qualifiers: Diabetes mellitus type: other specified (including VIANNEY) Diabetes mellitus complication detail: without coma Qualified Code(s): E13.10 - Other specified diabetes mellitus with ketoacidosis without coma The scribe's documentation has been prepared under my direction and personally reviewed by me in its entirety. I confirm that the note above accurately reflects all work, treatment, procedures, and medical decision making performed by me.
[2019-05-01] MEDS: INSULIN ASPART 100 UNITS/ML 3 ML PEN SC SCH ×2 (16:58→21:11)
[2019-05-01 18:51] LABS: BUN Creatinine Ratio 20.9 (10-20); Calcium 8.4 mg/dl (8.5-10.1); Creatinine Clr Calc Pharmacy 71.4 ml/min; Est GFR (African American) 99.3; Est GFR (Non-African American) 85.7; Magnesium 2.1 mg/dl (1.8-2.4); Phosphorus 2.7 mg/dl (2.5-4.9); Potassium 4.5 mmol/L (3.5-5.1)
[2019-05-01] MEDS ORDERED: PHARMACY GLYCEMIC MGMT CONSULT PRN (21:18)
[2019-05-01] MEDS: D5W AND 1/2NSS + 20MEQ KCL 20 MEQ/1,000 ML BAG IV SCH (22:04)
[2019-05-01 22:38] LABS: BUN Creatinine Ratio 22.6 (10-20); Calcium 8.4 mg/dl (8.5-10.1); Creatinine Clr Calc Pharmacy 75.8 ml/min; Est GFR (African American) 106.8; Est GFR (Non-African American) 92.1; Phosphorus 2.4 mg/dl (2.5-4.9); Potassium 4.2 mmol/L (3.5-5.1)
[2019-05-02 01:51] LABS: BUN Creatinine Ratio 19.7 (10-20); Calcium 8.1 mg/dl (8.5-10.1); Est GFR (African American) 103.7; Est GFR (Non-African American) 89.5; Phosphorus 2.2 mg/dl (2.5-4.9); Potassium 3.9 mmol/L (3.5-5.1)
[2019-05-02 06:28] LABS: BUN Creatinine Ratio 19.1 (10-20); Calcium 8.3 mg/dl (8.5-10.1); Creatinine Clr Calc Pharmacy 83.3 ml/min; Est GFR (African American) 119.1; Est GFR (Non-African American) 102.8; Potassium 3.7 mmol/L (3.5-5.1)
[2019-05-02 06:31] LABS: Phosphorus 1.7 mg/dl (2.5-4.9)
[2019-05-02] MEDS: D5W AND 1/2NSS + 20MEQ KCL 20 MEQ/1,000 ML BAG IV SCH (07:23)
--- NOTE | 2019-05-02 07:27 | Hospitalist Progress Note ---
Date of Service May 02, 2019 Assessment & Plan (1) DKA (diabetic ketoacidoses): Gita Tracy is a 39 y/o female with hx of DM1 presenting for admission with DKA. Etiology apparently from non-functioning insulin pump. - Repeat lab work this AM, AG is now closed at 6 - Potassium WNL at 3.7 - Phosphorus 1.7 this AM; will repace with KPhos 30mmol. - Pharmacy Consult placed on admission - She is currently somnolent but arouses easily to stimuli; follow for improved mentation - IVF D5W / NSS + 20meq KCl @ 100ml/hr. - Follow I&O as volume depleted on presentation from disease process; Has received 3L IV as of this AM; 1L output. (2) Migraine: reported hx; no acute complaints of headaches this AM Subjective History limited by Somnolence. Gita is somnolent but arouses to stimuli and answers questions appropriately. She notes DM1 since age of 12. Apparently her insulin pump has not been working for the past 2 weeks. She notes prior hospitalization for same but denies recent. No other acute concerns. Physical Exam Constitutional: WD/WN, vitals as above Eyes: + anicteric sclerae ENMT: dry mucous membranes Neck: normal visual inspection and trachea midline Respiratory: normal respiratory effort, lungs clear to auscultation Cardiovascular: Rate/Rhythm: regular rhythm and + tachycardic Gastrointestinal (Abdomen): Inspection/Auscultation: normal bowel sounds; abdomen not distended Percussion/Palpation: abdomen soft; abdomen nontender Musculoskeletal: Head/Neck/Chest: normocephalic and head atraumatic Skin: no rashes, warm and dry Neurologic: moves all extremities Psychiatric: somnolent Results & Data Vital Signs (Past 12 Hours) Vital Signs Temp Pulse Pulse Resp BP BP Pulse Ox 05/02/19 03:29 36.8 C 119 H 22 114/62 96 05/02/19 00:01 119 H 05/01/19 23:06 36.6 C 129 H 22 107/58 L 98 05/01/19 19:56 37.1 C 123 H 112/65 98 Laboratory Results Laboratory Results - last 24 hr 05/01/19 05/01/19 05/01/19 09:12 09:12 09:12 WBC 17.59 H RBC 4.06 L Hgb 12.3 Hct 37.0 MCV 91.1 MCH 30.3 MCHC 33.2 RDW Std Deviation 43.8 RDW Coeff of Alisa 13.2 Plt Count 361 MPV 9.9 Immature Gran % (Auto) 0.3 Neut % (Auto) 86.2 Lymph % (Auto) 5.2 Robertson % (Auto) 8.1 Eos % (Auto) 0.0 Baso % (Auto) 0.2 Immature Gran # (Auto) 0.05 H Neut # (Auto) 15.18 H Lymph # (Auto) 0.91 L Robertson # (Auto) 1.42 H Eos # (Auto) 0.00 Baso # (Auto) 0.03 Echinocytes 1+ VBG pH VBG pCO2 VBG pO2 VBG HCO3 VBG O2 Saturation VBG Base Excess Barometric Pressure Sodium 137 Potassium 4.6 Chloride 103 Carbon Dioxide 14 L Anion Gap 20.0 H BUN 24 H Creatinine 0.97 Est Cr Clr Drug Dosing Not Reportable Est GFR ( Amer) 85.9 Est GFR (Non-Af Amer) 74.1 BUN/Creatinine Ratio 25.0 H Glucose 444 H* POC Glucose Estimat Average Glucose Hemoglobin A1c Osmolality Calcium 9.5 Phosphorus Magnesium 2.2 Total Bilirubin 0.5 AST 20 ALT 21 Alkaline Phosphatase 114 Troponin I < 0.015 Total Protein 7.3 Albumin 3.8 Globulin 3.5 Albumin/Globulin Ratio 1.1 Lipase Beta-Hydroxybutyric Acd Cancelled TSH 0.865 HCG, Qual Negative Specimen Hemolysis Urine Color Urine Appearance Urine pH Ur Specific [place] Urine Protein Urine Glucose (UA) Urine Ketones Urine Blood Urine Nitrite Urine Bilirubin Urine Urobilinogen Ur Leukocyte Esterase Nasal Screen MRSA (PCR) Urine Opiates Screen Ur Methadone, Qual Urine Barbiturates Ur Phencyclidine (PCP) U Amphetamines Confirm U Amphetamin/Meth Scrn U Methamphetamin Confrm MDMA (Ecstasy) Screen U Benzodiazepines Scrn Ur Cocaine Metabolite U Marijuana (THC) Screen 05/01/19 05/01/19 05/01/19 10:04 10:04 10:04 WBC RBC Hgb Hct MCV MCH MCHC RDW Std Deviation RDW Coeff of Alisa Plt Count MPV Immature Gran % (Auto) Neut % (Auto) Lymph % (Auto) Robertson % (Auto) Eos % (Auto) Baso % (Auto) Immature Gran # (Auto) Neut # (Auto) Lymph # (Auto) Robertson # (Auto) Eos # (Auto) Baso # (Auto) Echinocytes VBG pH VBG pCO2 VBG pO2 VBG HCO3 VBG O2 Saturation VBG Base Excess Barometric Pressure Sodium Potassium Chloride Carbon Dioxide Anion Gap BUN Creatinine Est Cr Clr Drug Dosing Est GFR ( Amer) Est GFR (Non-Af Amer) BUN/Creatinine Ratio Glucose POC Glucose Estimat Average Glucose Hemoglobin A1c Osmolality Calcium Phosphorus Magnesium Total Bilirubin AST ALT Alkaline Phosphatase Troponin I Total Protein Albumin Globulin Albumin/Globulin Ratio Lipase Beta-Hydroxybutyric Acd TSH HCG, Qual Specimen Hemolysis Urine Color Yellow Urine Appearance Clear Urine pH 5.0 Ur Specific [place] 1.028 Urine Protein Negative Urine Glucose (UA) 3+ H Urine Ketones 4+ H Urine Blood Negative Urine Nitrite Negative Urine Bilirubin Negative Urine Urobilinogen Negative Ur Leukocyte Esterase Negative Nasal Screen MRSA (PCR) Urine Opiates Screen Neg Ur Methadone, Qual Neg Urine Barbiturates Neg Ur Phencyclidine (PCP) Neg U Amphetamines Confirm Pending U Amphetamin/Meth Scrn Pos H U Methamphetamin Confrm Pending MDMA (Ecstasy) Screen Neg U Benzodiazepines Scrn Neg Ur Cocaine Metabolite Neg U Marijuana (THC) Screen Neg 05/01/19 05/01/19 05/01/19 11:07 12:12 12:51 WBC RBC Hgb Hct MCV MCH MCHC RDW Std Deviation RDW Coeff of Alisa Plt Count MPV Immature Gran % (Auto) Neut % (Auto) Lymph % (Auto) Robertson % (Auto) Eos % (Auto) Baso % (Auto) Immature Gran # (Auto) Neut # (Auto) Lymph # (Auto) Robertson # (Auto) Eos # (Auto) Baso # (Auto) Echinocytes VBG pH VBG pCO2 VBG pO2 VBG HCO3 VBG O2 Saturation VBG Base Excess Barometric Pressure Sodium Potassium Chloride Carbon Dioxide Anion Gap BUN Creatinine Est Cr Clr Drug Dosing Est GFR ( Amer) Est GFR (Non-Af Amer) BUN/Creatinine Ratio Glucose POC Glucose 405 H* 312 H* Estimat Average Glucose Hemoglobin A1c Osmolality Calcium Phosphorus Magnesium Total Bilirubin AST ALT Alkaline Phosphatase Troponin I Total Protein Albumin Globulin Albumin/Globulin Ratio Lipase Beta-Hydroxybutyric Acd TSH HCG, Qual Specimen Hemolysis Urine Color Urine Appearance Urine pH Ur Specific [place] Urine Protein Urine Glucose (UA) Urine Ketones Urine Blood Urine Nitrite Urine Bilirubin Urine Urobilinogen Ur Leukocyte Esterase Nasal Screen MRSA (PCR) Negative Urine Opiates Screen Ur Methadone, Qual Urine Barbiturates Ur Phencyclidine (PCP) U Amphetamines Confirm U Amphetamin/Meth Scrn U Methamphetamin Confrm MDMA (Ecstasy) Screen U Benzodiazepines Scrn Ur Cocaine Metabolite U Marijuana (THC) Screen 05/01/19 05/01/19 05/01/19 13:32 13:46 13:46 WBC RBC Hgb Hct MCV MCH MCHC RDW Std Deviation RDW Coeff of Alisa Plt Count MPV Immature Gran % (Auto) Neut % (Auto) Lymph % (Auto) Robertson % (Auto) Eos % (Auto) Baso % (Auto) Immature Gran # (Auto) Neut # (Auto) Lymph # (Auto) Robertson # (Auto) Eos # (Auto) Baso # (Auto) Echinocytes VBG pH VBG pCO2 VBG pO2 VBG HCO3 VBG O2 Saturation VBG Base Excess Barometric Pressure Sodium 143 Potassium 3.8 D Chloride 116 H Carbon Dioxide 13 L Anion Gap 14.0 H BUN 21 H Creatinine 0.88 Est Cr Clr Drug Dosing 69.8 Est GFR ( Amer) 96.6 Est GFR (Non-Af Amer) 83.3 BUN/Creatinine Ratio 23.5 H Glucose 269 H POC Glucose Estimat Average Glucose 217 Hemoglobin A1c 9.2 H Osmolality 315 H Calcium 9.0 Phosphorus 2.5 Magnesium 2.1 Total Bilirubin AST ALT Alkaline Phosphatase Troponin I Total Protein Albumin Globulin Albumin/Globulin Ratio Lipase 40 L Beta-Hydroxybutyric Acd TSH HCG, Qual Specimen Hemolysis Urine Color Urine Appearance Urine pH Ur Specific [place] Urine Protein Urine Glucose (UA) Urine Ketones Urine Blood Urine Nitrite Urine Bilirubin Urine Urobilinogen Ur Leukocyte Esterase Nasal Screen MRSA (PCR) Urine Opiates Screen Ur Methadone, Qual Urine Barbiturates Ur Phencyclidine (PCP) U Amphetamines Confirm U Amphetamin/Meth Scrn U Methamphetamin Confrm MDMA (Ecstasy) Screen U Benzodiazepines Scrn Ur Cocaine Metabolite U Marijuana (THC) Screen 05/01/19 05/01/19 05/01/19 13:46 14:05 15:05 WBC RBC Hgb Hct MCV MCH MCHC RDW Std Deviation RDW Coeff of Alisa Plt Count MPV Immature Gran % (Auto) Neut % (Auto) Lymph % (Auto) Robertson % (Auto) Eos % (Auto) Baso % (Auto) Immature Gran # (Auto) Neut # (Auto) Lymph # (Auto) Robertson # (Auto) Eos # (Auto) Baso # (Auto) Echinocytes VBG pH 7.27 L VBG pCO2 30 L VBG pO2 64 VBG HCO3 13 VBG O2 Saturation 90.0 VBG Base Excess -12.1 Barometric Pressure 724.4 Sodium Potassium Chloride Carbon Dioxide Anion Gap BUN Creatinine Est Cr Clr Drug Dosing Est GFR ( Amer) Est GFR (Non-Af Amer) BUN/Creatinine Ratio Glucose POC Glucose 242 H 203 H Estimat Average Glucose Hemoglobin A1c Osmolality Calcium Phosphorus Magnesium Total Bilirubin AST ALT Alkaline Phosphatase Troponin I Total Protein Albumin Globulin Albumin/Globulin Ratio Lipase Beta-Hydroxybutyric Acd TSH HCG, Qual Specimen Hemolysis Urine Color Urine Appearance Urine pH Ur Specific [place] Urine Protein Urine Glucose (UA) Urine Ketones Urine Blood Urine Nitrite Urine Bilirubin Urine Urobilinogen Ur Leukocyte Esterase Nasal Screen MRSA (PCR) Urine Opiates Screen Ur Methadone, Qual Urine Barbiturates Ur Phencyclidine (PCP) U Amphetamines Confirm U Amphetamin/Meth Scrn U Methamphetamin Confrm MDMA (Ecstasy) Screen U Benzodiazepines Scrn Ur Cocaine Metabolite U Marijuana (THC) Screen 05/01/19 05/01/19 05/01/19 15:58 16:55 17:28 WBC RBC Hgb Hct MCV MCH MCHC RDW Std Deviation RDW Coeff of Alisa Plt Count MPV Immature Gran % (Auto) Neut % (Auto) Lymph % (Auto) [place] % (Auto) Eos % (Auto) Baso % (Auto) Immature Gran # (Auto) Neut # (Auto) Lymph # (Auto) Robertson # (Auto) Eos # (Auto) Baso # (Auto) Echinocytes VBG pH VBG pCO2 VBG pO2 VBG HCO3 VBG O2 Saturation VBG Base Excess Barometric Pressure Sodium 142 Potassium 4.5 D Chloride 116 H Carbon Dioxide 13 L Anion Gap 13.0 H BUN 18 Creatinine 0.86 Est Cr Clr Drug Dosing 71.4 Est GFR ( Amer) 99.3 Est GFR (Non-Af Amer) 85.7 BUN/Creatinine Ratio 20.9 H Glucose 286 H POC Glucose 235 H 264 H Estimat Average Glucose Hemoglobin A1c Osmolality Calcium 8.4 L Phosphorus 2.7 Magnesium 2.1 Total Bilirubin AST ALT Alkaline Phosphatase Troponin I Total Protein Albumin Globulin Albumin/Globulin Ratio Lipase Beta-Hydroxybutyric Acd TSH HCG, Qual Specimen Hemolysis Urine Color Urine Appearance Urine pH Ur Specific [place] Urine Protein Urine Glucose (UA) Urine Ketones Urine Blood Urine Nitrite Urine Bilirubin Urine Urobilinogen Ur Leukocyte Esterase Nasal Screen MRSA (PCR) Urine Opiates Screen Ur Methadone, Qual Urine Barbiturates Ur Phencyclidine (PCP) U Amphetamines Confirm U Amphetamin/Meth Scrn U Methamphetamin Confrm MDMA (Ecstasy) Screen U Benzodiazepines Scrn Ur Cocaine Metabolite U Marijuana (THC) Screen 05/01/19 05/01/19 05/01/19 17:28 18:00 19:02 WBC RBC Hgb Hct MCV MCH MCHC RDW Std Deviation RDW Coeff of Alisa Plt Count MPV Immature Gran % (Auto) Neut % (Auto) Lymph % (Auto) [place] % (Auto) Eos % (Auto) Baso % (Auto) Immature Gran # (Auto) Neut # (Auto) Lymph # (Auto) [place] # (Auto) Eos # (Auto) Baso # (Auto) Echinocytes VBG pH 7.28 L VBG pCO2 VBG pO2 VBG HCO3 VBG O2 Saturation VBG Base Excess Barometric Pressure Sodium Potassium Chloride Carbon Dioxide Anion Gap BUN Creatinine Est Cr Clr Drug Dosing Est GFR ( Amer) Est GFR (Non-Af Amer) BUN/Creatinine Ratio Glucose POC Glucose 313 H* 301 H* Estimat Average Glucose Hemoglobin A1c Osmolality Calcium Phosphorus Magnesium Total Bilirubin AST ALT Alkaline Phosphatase Troponin I Total Protein Albumin Globulin Albumin/Globulin Ratio Lipase Beta-Hydroxybutyric Acd TSH HCG, Qual Specimen Hemolysis Urine Color Urine Appearance Urine pH Ur Specific [place] Urine Protein Urine Glucose (UA) Urine Ketones Urine Blood Urine Nitrite Urine Bilirubin Urine Urobilinogen Ur Leukocyte Esterase Nasal Screen MRSA (PCR) Urine Opiates Screen Ur Methadone, Qual Urine Barbiturates Ur Phencyclidine (PCP) U Amphetamines Confirm U Amphetamin/Meth Scrn U Methamphetamin Confrm MDMA (Ecstasy) Screen U Benzodiazepines Scrn Ur Cocaine Metabolite U Marijuana (THC) Screen 05/01/19 05/01/19 05/01/19 19:03 20:01 21:00 WBC RBC Hgb Hct MCV MCH MCHC RDW Std Deviation RDW Coeff of Alisa Plt Count MPV Immature Gran % (Auto) Neut % (Auto) Lymph % (Auto) [place] % (Auto) Eos % (Auto) Baso % (Auto) Immature Gran # (Auto) Neut # (Auto) Lymph # (Auto) [place] # (Auto) Eos # (Auto) Baso # (Auto) Echinocytes VBG pH VBG pCO2 VBG pO2 VBG HCO3 VBG O2 Saturation VBG Base Excess Barometric Pressure Sodium Potassium Chloride Carbon Dioxide Anion Gap BUN Creatinine Est Cr Clr Drug Dosing Est GFR ( Amer) Est GFR (Non-Af Amer) BUN/Creatinine Ratio Glucose POC Glucose 267 H 232 H 211 H Estimat Average Glucose Hemoglobin A1c Osmolality Calcium Phosphorus Magnesium Total Bilirubin AST ALT Alkaline Phosphatase Troponin I Total Protein Albumin Globulin Albumin/Globulin Ratio Lipase Beta-Hydroxybutyric Acd TSH HCG, Qual Specimen Hemolysis Urine Color Urine Appearance Urine pH Ur Specific [place] Urine Protein Urine Glucose (UA) Urine Ketones Urine Blood Urine Nitrite Urine Bilirubin Urine Urobilinogen Ur Leukocyte Esterase Nasal Screen MRSA (PCR) Urine Opiates Screen Ur Methadone, Qual Urine Barbiturates Ur Phencyclidine (PCP) U Amphetamines Confirm U Amphetamin/Meth Scrn U Methamphetamin Confrm MDMA (Ecstasy) Screen U Benzodiazepines Scrn Ur Cocaine Metabolite U Marijuana (THC) Screen 05/01/19 05/01/19 05/01/19 21:47 21:47 22:00 WBC RBC Hgb Hct MCV MCH MCHC RDW Std Deviation RDW Coeff of Alisa Plt Count MPV Immature Gran % (Auto) Neut % (Auto) Lymph % (Auto) [place] % (Auto) Eos % (Auto) Baso % (Auto) Immature Gran # (Auto) Neut # (Auto) Lymph # (Auto) [place] # (Auto) Eos # (Auto) Baso # (Auto) Echinocytes VBG pH 7.34 L VBG pCO2 VBG pO2 VBG HCO3 VBG O2 Saturation VBG Base Excess Barometric Pressure Sodium 142 Potassium 4.2 Chloride 115 H Carbon Dioxide 17 L Anion Gap 10.0 BUN 18 Creatinine 0.81 Est Cr Clr Drug Dosing 75.8 Est GFR ( Amer) 106.8 Est GFR (Non-Af Amer) 92.1 BUN/Creatinine Ratio 22.6 H Glucose 209 H POC Glucose 202 H Estimat Average Glucose Hemoglobin A1c Osmolality Calcium 8.4 L Phosphorus 2.4 L Magnesium 2.0 Total Bilirubin AST ALT Alkaline Phosphatase Troponin I Total Protein Albumin Globulin Albumin/Globulin Ratio Lipase Beta-Hydroxybutyric Acd TSH HCG, Qual Specimen Hemolysis Urine Color Urine Appearance Urine pH Ur Specific [place] Urine Protein Urine Glucose (UA) Urine Ketones Urine Blood Urine Nitrite Urine Bilirubin Urine Urobilinogen Ur Leukocyte Esterase Nasal Screen MRSA (PCR) Urine Opiates Screen Ur Methadone, Qual Urine Barbiturates Ur Phencyclidine (PCP) U Amphetamines Confirm U Amphetamin/Meth Scrn U Methamphetamin Confrm MDMA (Ecstasy) Screen U Benzodiazepines Scrn Ur Cocaine Metabolite U Marijuana (THC) Screen 05/01/19 05/02/19 05/02/19 23:04 00:01 01:02 WBC RBC Hgb Hct MCV MCH MCHC RDW Std Deviation RDW Coeff of Alisa Plt Count MPV Immature Gran % (Auto) Neut % (Auto) Lymph % (Auto) [place] % (Auto) Eos % (Auto) Baso % (Auto) Immature Gran # (Auto) Neut # (Auto) Lymph # (Auto) [place] # (Auto) Eos # (Auto) Baso # (Auto) Echinocytes VBG pH VBG pCO2 VBG pO2 VBG HCO3 VBG O2 Saturation VBG Base Excess Barometric Pressure Sodium Potassium Chloride Carbon Dioxide Anion Gap BUN Creatinine Est Cr Clr Drug Dosing Est GFR ( Amer) Est GFR (Non-Af Amer) BUN/Creatinine Ratio Glucose POC Glucose 216 H 244 H 257 H Estimat Average Glucose Hemoglobin A1c Osmolality Calcium Phosphorus Magnesium Total Bilirubin AST ALT Alkaline Phosphatase Troponin I Total Protein Albumin Globulin Albumin/Globulin Ratio Lipase Beta-Hydroxybutyric Acd TSH HCG, Qual Specimen Hemolysis Urine Color Urine Appearance Urine pH Ur Specific [place] Urine Protein Urine Glucose (UA) Urine Ketones Urine Blood Urine Nitrite Urine Bilirubin Urine Urobilinogen Ur Leukocyte Esterase Nasal Screen MRSA (PCR) Urine Opiates Screen Ur Methadone, Qual Urine Barbiturates Ur Phencyclidine (PCP) U Amphetamines Confirm U Amphetamin/Meth Scrn U Methamphetamin Confrm MDMA (Ecstasy) Screen U Benzodiazepines Scrn Ur Cocaine Metabolite U Marijuana (THC) Screen 05/02/19 05/02/19 05/02/19 01:21 01:21 02:36 WBC RBC Hgb Hct MCV MCH MCHC RDW Std Deviation RDW Coeff of Alisa Plt Count MPV Immature Gran % (Auto) Neut % (Auto) Lymph % (Auto) [place] % (Auto) Eos % (Auto) Baso % (Auto) Immature Gran # (Auto) Neut # (Auto) Lymph # (Auto) [place] # (Auto) Eos # (Auto) Baso # (Auto) Echinocytes VBG pH 7.37 VBG pCO2 VBG pO2 VBG HCO3 VBG O2 Saturation VBG Base Excess Barometric Pressure Sodium 141 Potassium 3.9 Chloride 114 H Carbon Dioxide 20 L Anion Gap 7.0 BUN 16 Creatinine 0.83 Est Cr Clr Drug Dosing 74.0 Est GFR ( Amer) 103.7 Est GFR (Non-Af Amer) 89.5 BUN/Creatinine Ratio 19.7 Glucose 239 H POC Glucose 227 H Estimat Average Glucose Hemoglobin A1c Osmolality Calcium 8.1 L Phosphorus 2.2 L Magnesium 2.0 Total Bilirubin AST ALT Alkaline Phosphatase Troponin I Total Protein Albumin Globulin Albumin/Globulin Ratio Lipase Beta-Hydroxybutyric Acd TSH HCG, Qual Specimen Hemolysis Urine Color Urine Appearance Urine pH Ur Specific [place] Urine Protein Urine Glucose (UA) Urine Ketones Urine Blood Urine Nitrite Urine Bilirubin Urine Urobilinogen Ur Leukocyte Esterase Nasal Screen MRSA (PCR) Urine Opiates Screen Ur Methadone, Qual Urine Barbiturates Ur Phencyclidine (PCP) U Amphetamines Confirm U Amphetamin/Meth Scrn U Methamphetamin Confrm MDMA (Ecstasy) Screen U Benzodiazepines Scrn Ur Cocaine Metabolite U Marijuana (THC) Screen 05/02/19 05/02/19 05/02/19 03:28 04:25 05:27 WBC RBC Hgb Hct MCV MCH MCHC RDW Std Deviation RDW Coeff of Alisa Plt Count MPV Immature Gran % (Auto) Neut % (Auto) Lymph % (Auto) [place] % (Auto) Eos % (Auto) Baso % (Auto) Immature Gran # (Auto) Neut # (Auto) Lymph # (Auto) [place] # (Auto) Eos # (Auto) Baso # (Auto) Echinocytes VBG pH VBG pCO2 VBG pO2 VBG HCO3 VBG O2 Saturation VBG Base Excess Barometric Pressure Sodium Potassium Chloride Carbon Dioxide Anion Gap BUN Creatinine Est Cr Clr Drug Dosing Est GFR ( Amer) Est GFR (Non-Af Amer) BUN/Creatinine Ratio Glucose POC Glucose 205 H 254 H 199 H Estimat Average Glucose Hemoglobin A1c Osmolality Calcium Phosphorus Magnesium Total Bilirubin AST ALT Alkaline Phosphatase Troponin I Total Protein Albumin Globulin Albumin/Globulin Ratio Lipase Beta-Hydroxybutyric Acd TSH HCG, Qual Specimen Hemolysis Urine Color Urine Appearance Urine pH Ur Specific [place] Urine Protein Urine Glucose (UA) Urine Ketones Urine Blood Urine Nitrite Urine Bilirubin Urine Urobilinogen Ur Leukocyte Esterase Nasal Screen MRSA (PCR) Urine Opiates Screen Ur Methadone, Qual Urine Barbiturates Ur Phencyclidine (PCP) U Amphetamines Confirm U Amphetamin/Meth Scrn U Methamphetamin Confrm MDMA (Ecstasy) Screen U Benzodiazepines Scrn Ur Cocaine Metabolite U Marijuana (THC) Screen 05/02/19 05/02/19 05/02/19 05:44 05:44 06:29 WBC RBC Hgb Hct MCV MCH MCHC RDW Std Deviation RDW Coeff of Alisa Plt Count MPV Immature Gran % (Auto) Neut % (Auto) Lymph % (Auto) [place] % (Auto) Eos % (Auto) Baso % (Auto) Immature Gran # (Auto) Neut # (Auto) Lymph # (Auto) [place] # (Auto) Eos # (Auto) Baso # (Auto) Echinocytes VBG pH 7.40 VBG pCO2 VBG pO2 VBG HCO3 VBG O2 Saturation VBG Base Excess Barometric Pressure Sodium 141 Potassium 3.7 Chloride 114 H Carbon Dioxide 21 Anion Gap 6.0 BUN 14 Creatinine 0.74 Est Cr Clr Drug Dosing 83.3 Est GFR ( Amer) 119.1 Est GFR (Non-Af Amer) 102.8 BUN/Creatinine Ratio 19.1 Glucose 204 H POC Glucose 206 H Estimat Average Glucose Hemoglobin A1c Osmolality Calcium 8.3 L Phosphorus 1.7 L Magnesium 2.0 Total Bilirubin AST ALT Alkaline Phosphatase Troponin I Total Protein Albumin Globulin Albumin/Globulin Ratio Lipase Beta-Hydroxybutyric Acd TSH HCG, Qual Specimen Hemolysis Urine Color Urine Appearance Urine pH Ur Specific [place] Urine Protein Urine Glucose (UA) Urine Ketones Urine Blood Urine Nitrite Urine Bilirubin Urine Urobilinogen Ur Leukocyte Esterase Nasal Screen MRSA (PCR) Urine Opiates Screen Ur Methadone, Qual Urine Barbiturates Ur Phencyclidine (PCP) U Amphetamines Confirm U Amphetamin/Meth Scrn U Methamphetamin Confrm MDMA (Ecstasy) Screen U Benzodiazepines Scrn Ur Cocaine Metabolite U Marijuana (THC) Screen 05/02/19 05/02/19 07:33 08:30 WBC RBC Hgb Hct MCV MCH MCHC RDW Std Deviation RDW Coeff of Alisa Plt Count MPV Immature Gran % (Auto) Neut % (Auto) Lymph % (Auto) [place] % (Auto) Eos % (Auto) Baso % (Auto) Immature Gran # (Auto) Neut # (Auto) Lymph # (Auto) [place] # (Auto) Eos # (Auto) Baso # (Auto) Echinocytes VBG pH VBG pCO2 VBG pO2 VBG HCO3 VBG O2 Saturation VBG Base Excess Barometric Pressure Sodium Potassium Chloride Carbon Dioxide Anion Gap BUN Creatinine Est Cr Clr Drug Dosing Est GFR ( Amer) Est GFR (Non-Af Amer) BUN/Creatinine Ratio Glucose POC Glucose 193 H 191 H Estimat Average Glucose Hemoglobin A1c Osmolality Calcium Phosphorus Magnesium Total Bilirubin AST ALT Alkaline Phosphatase Troponin I Total Protein Albumin Globulin Albumin/Globulin Ratio Lipase Beta-Hydroxybutyric Acd TSH HCG, Qual Specimen Hemolysis Urine Color Urine Appearance Urine pH Ur Specific [place] Urine Protein Urine Glucose (UA) Urine Ketones Urine Blood Urine Nitrite Urine Bilirubin Urine Urobilinogen Ur Leukocyte Esterase Nasal Screen MRSA (PCR) Urine Opiates Screen Ur Methadone, Qual Urine Barbiturates Ur Phencyclidine (PCP) U Amphetamines Confirm U Amphetamin/Meth Scrn U Methamphetamin Confrm MDMA (Ecstasy) Screen U Benzodiazepines Scrn Ur Cocaine Metabolite U Marijuana (THC) Screen Medications Administered Insulin Human Regular 250 (units/ Sodium Chloride) 250 mls @ 1 mls/hr IV .Q24H [facility]; Protocol Stop: 05/31/19 10:44 Last Titration: 05/02/19 08:39 Dose: 1.1 units/hr, 1.1 mls/hr Documented by: [id number] Cosigned by: [id number] Titration: 05/02/19 07:32 Dose: 1.1 units/hr, 1.1 mls/hr Documented by: [id number] Cosigned by: [id number] Titration: 05/02/19 07:07 Dose: 1.1 units/hr, 1.1 mls/hr Documented by: [id number] Cosigned by: [id number] Titration: 05/02/19 06:33 Dose: 1.1 units/hr, 1.1 mls/hr Documented by: [id number] Cosigned by: [id number] Titration: 05/02/19 05:30 Dose: 1.1 units/hr, 1.1 mls/hr Documented by: [id number] Cosigned by: [id number] Titration: 05/02/19 04:30 Dose: 1.4 units/hr, 1.4 mls/hr Documented by: [id number] Cosigned by: [id number] Titration: 05/02/19 03:32 Dose: 1.2 units/hr, 1.2 mls/hr Documented by: [id number] Cosigned by: [id number] Titration: 05/02/19 02:37 Dose: 1.2 units/hr, 1.2 mls/hr Documented by: [id number] Cosigned by: [id number] Titration: 05/02/19 01:32 Dose: 1.2 units/hr, 1.2 mls/hr Documented by: [id number] Cosigned by: [id number] Titration: 05/01/19 23:08 Dose: 1 units/hr, 1 mls/hr Documented by: [id number] Cosigned by: [id number] Titration: 05/01/19 22:05 Dose: 1 units/hr, 1 mls/hr Documented by: [id number] Cosigned by: [id number] Titration: 05/01/19 21:07 Dose: 1 units/hr, 1 mls/hr Documented by: [id number] Cosigned by: [id number] Titration: 05/01/19 20:05 Dose: 1 units/hr, 1 mls/hr Documented by: [id number] Cosigned by: [id number] Titration: 05/01/19 19:05 Dose: 1.2 units/hr, 1.2 mls/hr Documented by: [id number] Cosigned by: [id number] Titration: 05/01/19 18:46 Dose: 1.2 units/hr, 1.2 mls/hr Documented by: [id number] Cosigned by: [id number] Titration: 05/01/19 18:05 Dose: 1.2 units/hr, 1.2 mls/hr Documented by: [id number] Cosigned by: [id number] Titration: 05/01/19 16:59 Dose: 1 units/hr, 1 mls/hr Documented by: [id number] Cosigned by: [id number] Titration: 05/01/19 16:12 Dose: 0.8 units/hr, 0.8 mls/hr Documented by: [id number] Cosigned by: [id number] Titration: 05/01/19 15:00 Dose: 0.8 units/hr, 0.8 mls/hr Documented by: [id number] Cosigned by: [id number] Titration: 05/01/19 14:00 Dose: 1 units/hr, 1 mls/hr Documented by: [id number] Cosigned by: [id number] Titration: 05/01/19 12:50 Dose: 1.3 units/hr, 1.3 mls/hr Documented by: [id number] Cosigned by: [id number] Admin: 05/01/19 11:48 Dose: 1.3 units/hr, 1.3 mls/hr Documented by: [id number] Cosigned by: [id number] Potassium Chloride/Dextrose/Sod Cl (D5w And 1/2nss + 20meq Kcl) 20 meq in 1,000 mls @ 100 mls/hr IV .Q10H [facility] Stop: 05/31/19 21:14 Last Admin: 05/02/19 07:23 Dose: 100 mls/hr Documented by: [id number] Infusion: 05/02/19 07:23 Dose: 100 mls/hr Documented by: [id number] Admin: 05/01/19 22:04 Dose: 100 mls/hr Documented by: [id number] Insulin Aspart (Novolog Flexpen) 0 units SC ACHS JEF Stop: 05/31/19 16:29 Last Admin: 05/02/19 07:42 Dose: Not Given Documented by: [id number] Cosigned by: [id number] Admin: 05/01/19 21:11 Dose: Not Given Documented by: [id number] Cosigned by: [id number] Admin: 05/01/19 16:58 Dose: Not Given Documented by: [id number] Resident Activity Tracking Resident Involvement: Resident Care Provided Care Provided: Adult Hospital Medicine (1) DKA (diabetic ketoacidoses) Diabetes mellitus complication detail: without coma Diabetes mellitus type: type 1 Qualified Code(s): E10.10 - Type 1 diabetes mellitus with ketoacidosis without coma (2) Migraine Intractability: not intractable Migraine type: unspecified Status m igrainosus presence: without status migrainosus Qualified Code(s): G43.909 - Migraine, unspecified, not intractable, without status migrainosus
[2019-05-02] MEDS: INSULIN ASPART 100 UNITS/ML 3 ML PEN SC SCH ×3 (07:42→17:41)
[2019-05-02] MEDS ORDERED: POTASSIUM PHOS 3 MMOL/1 ML INFUSION IV STA (09:15)
[2019-05-02] MEDS ORDERED: POTASSIUM PHOSPHATE 30 MMOL in SODIUM CHLORIDE 0.9% 500 ML IV STA (09:32)
[2019-05-02 10:21] LABS: BUN Creatinine Ratio 20.7 (10-20); Calcium 8.2 mg/dl (8.5-10.1); Est GFR (African American) 129.2; Est GFR (Non-African American) 111.5; Magnesium 1.9 mg/dl (1.8-2.4); Phosphorus 1.6 mg/dl (2.5-4.9); Potassium 3.7 mmol/L (3.5-5.1)
[2019-05-02] MEDS ORDERED: INSULIN GLARGINE SOLOSTAR 100 UNITS/ML 3 ML PEN SC ONE (11:30)
[2019-05-02] MEDS ORDERED: GLUCOSE 40% GEL 15 GM TUBE PO PRN (11:45)
[2019-05-02] MEDS ORDERED: CARBOHYDRATES FOR HYPOGLYCEMIA PO PRN (11:45)
[2019-05-02] MEDS ORDERED: GLUCOSE 10 TABS/TUBE PO PRN (11:45)
[2019-05-02] MEDS ORDERED: GLUCAGON FOR INJ 1 MG VIAL IM PRN (11:45)
[2019-05-02] MEDS ORDERED: DEXTROSE 50% 50 ML SYRINGE IV PRN (11:45)
--- NOTE | 2019-05-02 16:35 | Discharge Summary ---
Date of Service May 02, 2019 Admission HPI Per Admitting Provider Gita Tracy is a 39-year-old female with history of type 1 diabetes since age 12, insulin pump in place, presenting with DKA. Patient is somnolent but arousable and is able to answer most questions appropriately at this time. However, is overall a poor historian. She reports that her insulin pump has not been functioning properly for at least the last 2 weeks. She states that she has been feeling "ill", nausea and body aches for the last 14 to 15 days. She has had DKA in the past, believes her last episode was about a month ago. She follows with Dr. Cárdenas and Ms. Watson of endocrinology from [place], [place]. She denies fevers, chills, headache, visual change, abdominal pain, diarrhea, chest pain, shortness of breath, cough, wheeze. She is having some nausea and is requesting "diet pop". No additional complaints at this time. ER course: Normal saline x2L, NSS at 125mL/hr, Insulin pump ordered, not yet initiated Principal Diagnosis DKA Discharge Exam Vitals noted and reviewed, as above GENERAL: no acute distress HEAD: normocephalic atraumatic ENT: sclerae normal, trachea midline RESP: normal work of breathing CV: regular rate and rhythm ABDOMEN: nondistended SKIN: no rashes or jaundice PSYCH: appropriate mood and affect Discharge Data Allergies Allergy/AdvReac Type Severity Reaction Status Date / Time Penicillins Allergy Severe Throat Unverified 05/01/19 10:32 swells shut Consultations 05/01/19 10:52 ED Decision to Admit Stat 05/02/19 14:38 Consult Case Management - Discharge Planning Routine Ordered Studies 05/01/19 08:42 CT head/brain wo con Stat Hospital Course (1) DKA (diabetic ketoacidoses): Ms Tracy 39F with pmhx of T1DM on insulin pump normally - presented with hyperglycemia due to poorly functioning insulin pump. Admission labs revealed hyperglycemia with glucose = 444, anion gap = 20, serum bicarb = 14, patient with ketones and glucose on UA. Chest x-ray with no evidence of pneumonia, UA does not suggest infection. These v She was admitted to PCU and begun on insulin drip with fluids and electrolyte repletion. BSGs returned within acceptable range by morning, and she was weaned off of drip. Lab values otherwise returned to normal. Tolerating PO. Discharge plan to include diabetes education as well as sliding scale regimen as outlined below. A1C here is 9.2. Case management to set up with PCP appointment to establish with [facility] in [facility]. Answered all questions. Discussed with margaret Quinn as well and patient and amitae are comfortable with going home. (2) Diabetes type I: Total Time Total Time Spent Total Time Spent (In Minutes): 30 Discharge Plan Discharge Items Patient Disposition: Home - Self-Care Reason For Visit: DKA Discharge Diagnosis: diabetic ketoacidosis Condition on Discharge: Good Activity: Per Instructions section Lifting: None Bathing: No limitations Sexual Activity: When tolerated Exercise/Sports: Gradually increase as tolerated Non-emergency contact: Primary Care Provider Call non-emergency contact if: you have any medication questions Follow-up/Referrals: Tonio Summers M.D. [Primary Care Provider] - Diet: Carb Count or DM1 Addtl Attending Provider Instructions: You were admitted due to very high blood sugars which caused acidosis and dehydration. Your A1c is 9.2. Goal A1C is less than 7. Amina met with you to discuss your insulin regimen - the plan is to use short and long acting insulin until you are able to see your doctor to get your insulin pump fixed. Scripts have been sent to your pharmacy in [place]. What is diabetic ketoacidosis? Diabetic ketoacidosis is a serious problem that happens to people with diabetes when chemicals called "ketones" build up in their blood. It can happen to people with either type 1 or type 2 diabetes, but it is more likely to affect people with type 1. That's because people with type 1 make little or no insulin, a hormone that allows the body to use sugar as a source of energy. Normally, the body breaks down sugar as a source of energy. But in people with diabetes who do not make any insulin, the body is unable to use sugar. When the body can't use sugar, it martines fat as a source of energy. But burning fat can cause the body to make too many ketones. When ketones build up in the blood, they can be toxic. What causes diabetic ketoacidosis? People can get diabetic ketoacidosis for a few reasons: They are not getting treated for diabetes (possibly because they don't know they have it) and so their body is breaking down fat. They have a major illness or health problem, such a heart attack or infection. They take certain medicines or illegal drugs. They don't take their insulin as directed. Their insulin pump does not work correctly. What are the symptoms of diabetic ketoacidosis? The symptoms can include: Feeling very thirsty and drinking a lot Urinating a lot, including at night Nausea or vomiting Belly pain Feeling tired or having trouble thinking clearly Having breath that smells sweet or fruity Weight loss Should I see a doctor or nurse? See your doctor or nurse right away if you have the symptoms listed above. Also, see your doctor or nurse if your blood sugar levels keep being higher than they should be. Is there a test for diabetic ketoacidosis? Yes. If the doctor or nurse thinks you have diabetic ketoacidosis, he or she will order several blood tests, including tests to check your blood sugar and ketone levels. He or she will also check your urine for ketones. These tests can show whether you have diabetic ketoacidosis. Because diabetic ketoacidosis can cause problems with the heart, you might also need an electrocardiogram. That is a test to measure the electrical activity in the heart. How is diabetic ketoacidosis treated? Treatment is done at the hospital and can include: Fluids and electrolytes When dealing with diabetic ketoacidosis, the body loses a lot of fluids. It also loses electrolytes, chemicals such as sodium and potassium, that keep cells working normally. As part of treatment for the condition, doctors must replace lost fluids and electrolytes. Insulin When the body has enough insulin, it can use sugar as fuel and it does not need to break down fat. Can diabetic ketoacidosis be prevented? You can reduce your chances of getting diabetic ketoacidosis by: Taking your insulin exactly as directed Measuring your blood sugar often to make sure it is not too high or too low Pending Studies at Discharge: No Stand-Alone Forms: [employer], Smoking Cessation Medications and DC Order Prescriptions: New insulin lispro [Admelog SoloStar U-100 Insulin] 100 unit/mL insulin pen 1 units SQ ACHS Qty: 15 RF: 0 Lantus Solostar U-100 Insulin 100 unit/mL (3 mL) insulin pen 15 units SQ DAILY Qty: 15 RF: 0 (DME) pen needle, diabetic [BD Regi 2nd Gen Pen Needle] 32 gauge x 5/32" needle See Rx Instructions .ROUTE .MEDSUPPLY Qty: 50 RF: 1 No Action Unobtainable RF: 0 Discharge Orders: Discharge Order (Routine); Ordered 05/02/19 Ordered By: Janelle Stewart/Other Patient Handouts: Diabetes Activity Tips, Diabetes Manage A1C Test Admission Data Admit Date/Time: 05/01/19 11:42 Attending Provider: Esteban Mcadams Admit Provider: Sobeida Lombardo Primary Care Provider: Tonio Summers Other Providers: Sobeida Lombardo Other Interventions: Discharge Summary Assessment (RN) Last Done: 05/02/19 16:54 DC Date/Time DO NOT enter until pt leaves facility: 05/02/19 17:15 Supervising Physician Co-Signing Physician Notes Attending attestation Pt seen and examined in concert with Dr. Willard. In agreement with the documented findings as noted in the resident documentation with any exceptions or additions as noted here. Pt resting comfortably in bed, interactive and reporting return to baseline. Denies substance use and no apparent rx on PDMP On examination, S1/S2 nl RRR no MCG. CTAB. Abd NT/ND BS+ve DKA in the setting of Type 1 DM on insulin pump (broken) - transition to SQ insulin as above following correction w/ drip. Tolerating POI well and AVSS. Establish w/ PCP [facility] for management of insulin levels. Else see resident documentation as noted. Resident Activity Tracking Resident Involvement: Resident Care Provided Care Provided: Adult Hospital Medicine
[2019-05-03 13:01] LABS: Amphetamine Urine, Confirm 2500; Methamphetamine, Ur Confirm 11300
== END 2019-05-02 17:15 | disposition home or self-care (01) | DRG 919 ==
LOC: ED 07:58 → 1E 11:42 → SUATTDRO 11:42 → 1E 12:50 → 2E 18:50

== ENCOUNTER 2021-02-16 07:21 | Observation (INO) ==
[2021-02-16] MEDS ORDERED: ONDANSETRON INJ 2 MG/ML 2 ML VIAL IV STA ×2 (07:51→10:12)
[2021-02-16] MEDS ORDERED: SODIUM CHLORIDE 0.9% 1000ML 1,000 ML IV SCH (07:53)
[2021-02-16] MEDS ORDERED: NovoLIN-R INSULIN PER UNIT CHARGE IV STA (07:59)
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
--- NOTE | 2021-02-16 08:18 | XRay Report ---
XR chest 1V portable CLINICAL HISTORY: VOMITING, HYPERGLYCEMIA COMPARISON STUDY: May 01, 2019 FINDINGS: No pneumothorax. No pleural effusion. Few nodular opacities are seen at the right infrahilar region. The rest of lung parenchyma is clear. Cardiomediastinal silhouette is within normal limits in size. No significant pulmonary vascular congestion.. Osseous structures: unremarkable IMPRESSION: 1. Nodular opacities are seen at the right infrahilar region and might represent pneumonia or relate d to aspiration. Short-term follow-up with PA and lateral chest radiograph is suggested. ACT 112: Negative or not required by law. The above report was generated using voice recognition software. It may contain grammatical, syntax o r spelling errors. Electronically signed by: Johanna Interiano DO 02/16/2021 8:16 AM
[2021-02-16 08:39] LABS: Basophils # (auto) 0.04 K/uL (0-0.2); Basophils % (auto) 0.2 %; Eosinophils # (auto) 0.01 K/uL (0-0.5); Eosinophils % (auto) 0.1 %; Hematocrit (blood only) 38.8 % (37-47); Hemoglobin 12.7 g/dL (12.0-16.0); Immature Granulocytes # (auto) 0.06 K/uL (0.00-0.02); Immature Granulocytes % (auto) 0.4 %; Lymphocytes # (auto) 1.46 K/uL (1.2-3.4); Lymphocytes % (auto) 8.9 %; Mean Corpuscular Hemoglobin 30.2 pg (25-34); Mean Corpuscular Hgb Conc 32.7 g/dL (32-36); Mean Corpuscular Volume 92.2 fL (80-100); Monocytes # (auto) 0.65 K/uL (0.11-0.59); Neutrophils % (auto) 86.4 %; Platelet Count 439 K/uL (130-400); RDW Coefficient of Variation 13.5 % (11.5-14.5); RDW Standard Deviation 45.2 fL (36.4-46.3); Red Blood Count 4.21 M/uL (4.2-5.4); White Blood Count 16.42 K/uL (4.8-10.8)
[2021-02-16 09:04] LABS: Albumin Globulin Ratio 0.6 (0.9-2); BUN Creatinine Ratio 20.1 (10-20); Bilirubin,Total 0.6 mg/dl (0.2-1); Calcium 9.9 mg/dl (8.5-10.1); Creatinine Clr Calc Pharmacy 65.9 ml/min; Est GFR (African American) 92.1 ml/min; Est GFR (Non-African American) 79.5 ml/min; Globulin 4.9 gm/dl (2.5-4.0); Magnesium 2.3 mg/dl (1.8-2.4); Phosphorus 4.1 mg/dl (2.5-4.9); Potassium 4.4 mmol/L (3.5-5.1); Total Protein 7.9 gm/dl (6.4-8.2)
[2021-02-16 09:12] LABS: Pregnancy Test, Serum Negative (Negative)
[2021-02-16 09:31] LABS: Beta-Hydroxybutyrate 73.27 mg/dl (0.2-2.81)
[2021-02-16 09:47] LABS: Appearance Urine Clear (Clear); Bacteria Urine Automated Negative (Negative); Bilirubin Urine Negative (Negative); Blood Urine Negative (Negative); Cast Urine Automated 0 /lpf (0-5); Color Urine Yellow; Epithelial Cell Urine Auto >30 /lpf (0-5); Glucose Urine UA 3+ (Negative); Ketones Urine 4+ (Negative); Leukocyte Esterase Urine Negative (Negative); Nitrite Urine Negative (Negative); Protein Urine 1+ (Negative); RBC Urine Automated 0-4 /hpf (0-4); Specific Gravity Urine 1.022 (1.000-1.030); Urobilinogen Urine Negative (Negative)
[2021-02-16] MEDS ORDERED: GLUCOSE 40% GEL 15 GM TUBE PO PRN (09:53)
[2021-02-16] MEDS ORDERED: DEXTROSE 50% 50 ML SYRINGE IV PRN (09:53)
[2021-02-16] MEDS ORDERED: INSULIN PROTOCOL GOAL RANGE ONE (09:53)
[2021-02-16] MEDS ORDERED: GLUCOSE 10 TABS/TUBE PO PRN (09:53)
[2021-02-16] MEDS ORDERED: STAT IV Infusion **Titration per Protocol STA ×4 (09:53→10:56)
[2021-02-16] MEDS ORDERED: DKA GOAL RANGE 150-250 mg/dl ONE ×2 (09:53→12:01)
[2021-02-16] MEDS ORDERED: GLUCAGON FOR INJ 1 MG VIAL SQ PRN (09:53)
[2021-02-16] MEDS ORDERED: CARBOHYDRATES FOR HYPOGLYCEMIA PO PRN (09:53)
[2021-02-16] MEDS ORDERED: INSULIN REGULAR 250 UNITS in SODIUM CHLORIDE 0.9% 247.5 ML IV SCH ×2 (10:00→12:01)
[2021-02-16] MEDS ORDERED: POTASSIUM CHLORIDE 10 MEQ in SODIUM CHLORIDE 0.9% 1000ML 1,000 ML IV STA (10:03)
[2021-02-16] MEDS ORDERED: POTASSIUM CHLORIDE 10 MEQ / 100ML WTR IV ONE (10:13)
[2021-02-16 10:19] LABS: Amphetamines+Metham, Urine Neg (Neg); Barbiturates, Urine Neg (Neg); Benzodiazepine, Urine Neg (Neg); Cocaine, Urine Neg (Neg); MDMA (Ecstacy), Urine Neg (Neg); Methadone, Urine Pos (Neg); Opiate, Urine Neg (Neg); Phencyclidine, Urine Neg (Neg)
[2021-02-16] MEDS ORDERED: INSULIN ASPART 100 UNITS/ML 3 ML PEN SC SCH ×3 (11:30→20:00)
[2021-02-16] MEDS ORDERED: PENDING D5 1/2NS+20mEq KCL IVF SCH (12:00)
[2021-02-16] MEDS ORDERED: PENDING 1/2NSS+20mEq KCL IVF SCH (12:00)
[2021-02-16] MEDS ORDERED: DC ALL PREVIOUSLY ORDERED DIABETES MEDS ONE (12:01)
[2021-02-16] MEDS ORDERED: PHARMACY GLYCEMIC MGMT CONSULT PRN (12:01)
[2021-02-16] MEDS ORDERED: ACETAMINOPHEN 325 MG TAB PO PRN (12:01)
[2021-02-16] MEDS ORDERED: POLYETHYLENE (MIRALAX) 17 GM PACK PO PRN (12:01)
[2021-02-16] MEDS ORDERED: hydrOXYzine HCl 10 MG TAB PO PRN (12:01)
[2021-02-16] MEDS ORDERED: MAGNESIUM HYDROXIDE SUSP 30 ML UDC PO PRN (12:01)
[2021-02-16] MEDS ORDERED: ONDANSETRON INJ 2 MG/ML 2 ML VIAL IV PRN (12:01)
[2021-02-16] MEDS ORDERED: NORMOSOL-R 1,000 ML IV SCH (12:01)
[2021-02-16] MEDS ORDERED: FAMOTIDINE 20 MG TAB PO PRN (12:01)
[2021-02-16] MEDS ORDERED: ALUMINUM/MAGNESIUM SUSP 30 ML UDC PO PRN (12:01)
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
[2021-02-16 13:21] LABS: BUN Creatinine Ratio 21.8 (10-20); Blood Urea Nitrogen 18 mg/dl (7-18); Carbon Dioxide 15 mmol/L (21-32); Chloride 107 mmol/L (98-107); Creatinine Clr Calc Pharmacy 71.4 ml/min; Est GFR (Non-African American) 88.8 ml/min; Glucose 343 mg/dl (70-99); Phosphorus 3.7 mg/dl (2.5-4.9); Potassium 4.8 mmol/L (3.5-5.1); Sodium 137 mmol/L (136-145)
[2021-02-16] MEDS ORDERED: METOPROLOL TARTRATE 25 MG TAB PO ONE (13:45)
[2021-02-16 13:48] LABS: Beta-Hydroxybutyrate > 46.00 mg/dl (0.2-2.81)
--- NOTE | 2021-02-16 13:52 | Pharmacy Report ---
Pharmacy Glycemic Short Note 2 - Date of Service February 16, 2021 - Glycemic Short BSG Results (Last 24 hours): 02/16/21 02/16/21 02/16/21 07:56 07:57 08:30 Glucose 396 H* POC Glucose 378 H* 366 H* 02/16/21 02/16/21 02/16/21 09:16 09:17 09:19 Glucose POC Glucose 320 H* 299 H 330 H* 02/16/21 02/16/21 02/16/21 11:06 11:08 11:10 Glucose POC Glucose 313 H* 277 H 281 H 02/16/21 12:42 Glucose 343 H* POC Glucose OUTPATIENT ANTIDIABETIC REGIMEN: * Insulin pump- Humalog insulin (up to 70 units/day) * A1c = ordered for 02/17/21 with AM labs ASSESSMENT: * 40yo T1DM female with unknown degree of outpatient control. A1c ordered for tomorrow AM. Last admission 04/2019 for DKA * Pt with mild/moderate DKA per lab assessment. * pH 7.25-7.3 * Bicarb 13-18 * AG > 10 * Mental Status alert * IV insulin infusion per DKA protocol ordered in ED but not started in ED d/t concerns with BSG validity- was waiting on lab confirmation of GLU. IV insulin infusion started on the floor around 1400 * Pt NPO * Average time to resolution of DKA is ~6-14 hrs. Assuming the lower end will be achieved based on labs and pt presentation. Will start transition process from IV to SQ insulin hopefully around dinner to bedtime if labs trending to criteria for resolution * Criteria: 1.Serum glucose below 200 mg/dL (DKA) 2.Serum anion gap <12 meq/L 3.Serum bicarbonate =15 meq/L 4.Venous pH >7.30 PLAN FOR INPATIENT GLYCEMIC CONTROL: * IV insulin infusion per DKA protocol * Start with 0.1units/kg/hr IV insulin infusion + 0.1 units/kg IV bolus * Goal range 150-250mg/dl * Nursing may d/c IV insulin infusion when BOTH of the following criteria are met AFTER Lantus given. --BSG below 180mg/dl x 2 checks 1 hr apart --Rate 1 unit/hr or BELOW * Adjust fluids based on labs * Incorporate dextrose into IVF when BSG falls in goal range * Incorporate potassium into IVF when K+ drops below the upper limit of normal * Basal insulin * Lantus 24 units SQ x 1 dose * Bolus insulin (after Lantus administered) * NovoLog per scale ACHS or Q6hrs while NPO * Goal Range: Low 110 mg/dL - High 140 mg/dL * Correction Factor: 30 mg/dL/unit * Nutritional / Prandial insulin per carb ratio of 1 unit per 10 grams CHO consumed PLAN FOR DISCHARGE: * TBD; A1c pending
[2021-02-16] MEDS: INSULIN ASPART 100 UNITS/ML 3 ML PEN SC SCH ×2 (15:12→17:34)
[2021-02-16 16:43] LABS: BUN Creatinine Ratio 19.7 (10-20); Calcium 8.9 mg/dl (8.5-10.1); Creatinine Clr Calc Pharmacy 68.1 ml/min; Est GFR (African American) 97.3 ml/min; Est GFR (Non-African American) 83.9 ml/min; Magnesium 2.2 mg/dl (1.8-2.4); Potassium 4.5 mmol/L (3.5-5.1)
[2021-02-16 17:04] LABS: Phosphorus 2.7 mg/dl (2.5-4.9)
[2021-02-16] MEDS ORDERED: NORMOSOL-R 1,000 ML IV ONE (17:09)
[2021-02-16] MEDS ORDERED: INSULIN GLARGINE SOLOSTAR 100 UNITS/ML 3 ML PEN SC SCH (18:00)
[2021-02-16] MEDS: D5W AND 1/2NSS + 20MEQ KCL 20 MEQ/1,000 ML BAG IV SCH ×2 (18:20→22:19)
--- NOTE | 2021-02-16 19:31 | Communication Note ---
Date of Service: February 16, 2021 Informed by RN patient wished to leave against medical advice as she wanted some food. I explained her anion gap was actually worse therefore ideally wished to delay eating until this was closed. Explained her glucose will be managed with dextrose in the IV fluids but the main problem is still her blood is acidic. This is a severe life threatening illness which she could from if improperly managed. If it is a choice between her leaving against medical advice and feeding her here I would be happy to order her a diet although would not recomme nd it for optimal medical care it would be much safer than her leaving to go home. She refused this and maintained she wished to leave against medical advice. She reports she has done this multiple times in the past and has been dealing with T1DM since she was 12 years old. She tells me she has signed out against medical advice previously when her anion gap is still elevated and has managed her glucose at home. Although she doesn't have access to her insulin pump she reports having access to injectable insulin. She understands this is a severe life threatening illness mainly managed with IV fluids not just insulin and refuses to stay even if I now order her a diet. CORTNEY paperwork filled out and left with patient to sign.
[2021-02-16] MEDS: METOPROLOL TARTRATE 25 MG TAB PO SCH (20:13)
--- NOTE | 2021-02-16 20:39 | Electrocardiogram Report ---
Test Reason : Blood Pressure : / mmHG Vent. Rate : 129 BPM Atrial Rate : 129 BPM P-R Int : 128 ms QRS Dur : 076 ms QT Int : 304 ms P-R-T Axes : 086 -19 071 degrees QTc Int : 445 ms Sinus tachycardia Cannot rule out Anterior infarct , age undetermined Abnormal ECG When compared with ECG of 01-MAY-2019 09:15, Questionable change in QRS axis Confirmed by John Beck ([id number]) on 02/16/2021 8:39:40 PM Referred By: Confirmed By:John Beck
[2021-02-16] MEDS ORDERED: HEPARIN SOD 5,000 UNIT/0.5 ML VIAL SQ SCH (21:00)
[2021-02-16] MEDS ORDERED: ATORVASTATIN 10 MG TAB PO SCH (21:00)
[2021-02-16 21:09] LABS: Calcium 9.6 mg/dl (8.5-10.1); Creatinine Clr Calc Pharmacy 74.1 ml/min; Est GFR (African American) 107.6 ml/min; Est GFR (Non-African American) 92.9 ml/min; Phosphorus 2.3 mg/dl (2.5-4.9)
[2021-02-16 21:58] LABS: Potassium 4.8 mmol/L (3.5-5.1)
[2021-02-16 21:59] LABS: Magnesium 2.1 mg/dl (1.8-2.4)
--- NOTE | 2021-02-16 22:35 | Communication Note ---
Date of Service: February 16, 2021 Informed patient does not have a lift therefore decided to stay. Handed over patient to night resident. Plan to switch to basal bolus insulin once anion gap closed, likely in morning. Ok for diet to be placed as long as covered with SQ Novolog carb coverage.
[2021-02-17] MEDS ORDERED: DC IV INSULIN INFUSION 1 EA DEVI SCH
[2021-02-17 00:53] LABS: BUN Creatinine Ratio 16.3 (10-20); Calcium 7.5 mg/dl (8.5-10.1); Creatinine Clr Calc Pharmacy 72.3 ml/min; Est GFR (African American) 104.5 ml/min; Est GFR (Non-African American) 90.1 ml/min; Magnesium 1.9 mg/dl (1.8-2.4); Potassium 4.4 mmol/L (3.5-5.1)
[2021-02-17 01:14] LABS: Phosphorus 1.1 mg/dl (2.5-4.9)
[2021-02-17] MEDS: D5W AND 1/2NSS + 20MEQ KCL 20 MEQ/1,000 ML BAG IV SCH (02:20)
[2021-02-17] MEDS ORDERED: POTASSIUM CHLORIDE 20 MEQ in SODIUM CHLORIDE 0.9% 1000ML 1,000 ML IV SCH (03:15)
--- NOTE | 2021-02-17 03:26 | Communication Note ---
Date of Service: February 17, 2021 Subjective: Signed out from day team provider that the patient has DKA and was dehydrated with Q4H BMP's and VBG's overnight, and likely conversion to basal bolus insulin anticipated by the morning. Nursing notified that the patient wanted to have a diet ordered despite being on insulin drip. Objective: - hemodynamically stable overnight Labs: - gap closed overnight - K slightly above 4 overnight - Phos went from 2.3 ->1.1 A/P: 40 yo Type I diabetic in DKA - diet added w/ correction - gap closed overnight but blood sugars persistent in the 2-300's. discussed with pharmacy and switched IVF from D5 /2 to NSS - repleting Phos w/ K Phos 21 mmol (approx. 30 meq of K in this) in the first bag of NSS running at 200ml/h, with the following bag containing NSS and 20 mEq of potassium
[2021-02-17] MEDS ORDERED: POTASSIUM PHOSPHATE IV SCH (03:30)
[2021-02-17] MEDS ORDERED: SODIUM CHLORIDE 0.9% IV SCH (03:30)
[2021-02-17] MEDS ORDERED: INSULIN GLARGINE SOLOSTAR 100 UNITS/ML 3 ML PEN SC ONE (04:45)
[2021-02-17 04:51] LABS: Basophils # (auto) 0.03 K/uL (0-0.2); Basophils % (auto) 0.2 %; Eosinophils # (auto) 0.07 K/uL (0-0.5); Eosinophils % (auto) 0.5 %; Hematocrit (blood only) 30.9 % (37-47); Hemoglobin 10.1 g/dL (12.0-16.0); Immature Granulocytes # (auto) 0.04 K/uL (0.00-0.02); Immature Granulocytes % (auto) 0.3 %; Lymphocytes # (auto) 2.44 K/uL (1.2-3.4); Lymphocytes % (auto) 18.8 %; Mean Corpuscular Hemoglobin 29.1 pg (25-34); Mean Corpuscular Hgb Conc 32.7 g/dL (32-36); Mean Platelet Volume 8.8 fL (7.4-10.4); Monocytes # (auto) 1.13 K/uL (0.11-0.59); Monocytes % (auto) 8.7 %; Neutrophils # (auto) 9.29 K/uL (1.4-6.5); Neutrophils % (auto) 71.5 %; Platelet Count 420 K/uL (130-400); RDW Coefficient of Variation 13.3 % (11.5-14.5); RDW Standard Deviation 43.2 fL (36.4-46.3); Red Blood Count 3.47 M/uL (4.2-5.4)
[2021-02-17 05:08] LABS: Calcium 7.7 mg/dl (8.5-10.1); Creatinine Clr Calc Pharmacy 88.4 ml/min; Est GFR (African American) 128.3 ml/min; Est GFR (Non-African American) 110.7 ml/min; Magnesium 1.9 mg/dl (1.8-2.4); Phosphorus 1.6 mg/dl (2.5-4.9); Potassium 4.3 mmol/L (3.5-5.1)
[2021-02-17] MEDS ORDERED: INSULIN ASPART 100 UNITS/ML 3 ML PEN SC SCH ×2 (07:30)
[2021-02-17 07:42] LABS: Estimated Average Glucose 252 mg/dl; Hemoglobin A1C 10.4 % (4.5-5.6)
[2021-02-17] MEDS: METOPROLOL TARTRATE 25 MG TAB PO SCH (08:32)
[2021-02-17] MEDS ORDERED: NICOTINE 21 MG/24 HR TDSY TD SCH (09:00)
[2021-02-17] MEDS ORDERED: ASPIRIN 81 MG ECTAB PO SCH (09:00)
[2021-02-17] MEDS ORDERED: NSS + 20MEQ KCL 20 MEQ/1,000 ML BAG IV ONE (09:00)
[2021-02-17] MEDS ORDERED: MONTELUKAST SODIUM 10 MG TABLET PO SCH (09:00)
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
[2021-02-18 23:47] LABS: Methadone, Ur Metabolite 276 ng/mL (<100)
== END 2021-02-17 10:33 | disposition left against medical advice (07) | DRG 639 ==
LOC: ED 07:21 → 2S 10:56 → SUATTDRO 10:56 → INTOOBSV 10:56 → 2S 11:27

== ENCOUNTER 2021-07-11 18:34 | Observation (INO) ==
[2021-07-11] MEDS ORDERED: ONDANSETRON INJ 2 MG/ML 2 ML VIAL IV STA (18:45)
[2021-07-11] MEDS ORDERED: SODIUM CHLORIDE 0.9% 1000ML 1,000 ML IV SCH (18:45)
--- NOTE | 2021-07-11 18:50 | Emergency Department Note ---
Impression & Plan DKA, type 1, Tachycardia, Nausea & vomiting ED Provider Note Provider: Rene Mobley MD DATE OF SERVICE: 07/11/2021 CHIEF COMPLAINT: Nausea and vomiting, blood sugar issues HISTORY OF PRESENT ILLNESS: Patient is a 41-year-old female history of hypertension and type 1 diabetes presenting here today via ambulance from her home. Patient evidently this morning then developed nausea and vomiting and has not been able to keep anything down today. Patient reports about 4 days ago or so her blood glucose sensors stopped working. She has been continue to use her insulin pump but does not have a glucometer at home to monitor her blood sugars. EMS report her blood sugars in the 400s and she was given 250 mL of normal saline and 4 mg of Zofran prior to arrival. Patient states she still has a little bit of nausea but denies any fever chills. Denies significant abdominal pain. Denies URI symptoms of sore throat, runny nose, shortness of breath, or any chest discomfort. Patient does report a little bit of heartburn symptoms. Patient does report feeling a little bit lightheaded. REVIEW OF SYSTEMS: A total of 10 review of systems was obtained and negative except as stated above in the HPI. PAST MEDICAL HISTORY: As noted above MEDICATIONS: Reviewed home medications include insulin SOCIAL HISTORY: Smoker PHYSICAL EXAM: GENERAL: alert and oriented fatigued appearing with emesis bag Head: normocephalic and atraumatic EYES: No injection, discharge or icterus. NECK: Trachea midline. Supple. ENT: Mucous membranes pink and moist. LUNGS: Airway patent. No retractions. Breath sounds clear HEART: Regular tachycardic rate and rhythm. No chest wall tenderness ABDOMEN: Soft and non-tender, without guarding or rebound. SKIN: Acyanotic, warm, dry, without rashes EXTREMITIES: Without swelling, tenderness or deformity NEUROLOGICAL: No focal deficits. No aphasia. No facial droop or slurred speech. Normal strength and tone in the extremities. Sensation to gross touch normal. EK bpm sinus tachycardia. No PVC or PAC. No acute ST segment elevation. QTc 443. CONTINUOUS CARDIAC MONITORING: was ordered and showed a heart rate of 100s-120s bpm in sinus tachycardia Patient's laboratory studies and imaging reviewed. Differential includes Appendicitis, PID, infections, diverticulitis, UTI, obstruction, mesenteric ischemia, aortic pathology, inflammatory bowel disease, renal colic, PUD, pancreatitis, biliary pathology, hernia, volvulus, constipation, as well as other pathologies. IMPRESSION/MEDICAL DECISION MAKING: History of type 1 diabetes hyperglycemic with nausea and vomiting today. Benign abdomen denies significant abdominal pain. Patient is somewhat tachycardic here. Given IV fluids. Labs were sent. Patient reports feeling little bit lightheaded likely from dehydrational state. The lack of blood glucose monitoring at home is obviously concerning given her history of type 1 diabetes. Lower suspicion for cholecystitis, perforation, or appendicitis given her benign abdominal exam. Blood work here without anemia or leukocytosis. Mild acidosis at 7.3 noted. Negative Covid test. Pseudohyponatremia. Glucose elevated at 400. Negative . No troponin elevation or LFT abnormality. Anion gap of 17 noted and given the acidosis and hyperglycemia believe this is DKA. Discussed with pharmacy and insulin drip was started. Again given IV fluid supplementation and some Reglan for nausea. Hospitalist contacted for further care. DIAGNOSIS: DKA, nausea and vomiting DISPOSITION: Hospitalist will evaluate Patient was agreeable with this plan. Critical Care I have personally spent 33 minutes of critical care time in the direct management of this patient. This includes bedside care, interpretation of diagnostic studies, and testing, discussion with consultants, patient, and family members, and other required patient management activities. These 33 minutes is in excess of all separately billable procedures. Past Med/Surg History Medical History (Updated 07/11/21 @ 21:48 by Anand De Paz MD) Asthma Diabetes type I DKA, type 1 Environmental and seasonal allergies GERD (gastroesophageal reflux disease) Hypertension Migraine Mild acid reflux Substance abuse Tachycardia Tobacco abuse Surgical History History of appendectomy History of Family History Other Family history non-contributory Social History Smoking Status: Current every day smoker Tobacco Type: Cigarettes Second Hand Exposure: Yes; Hx Alcohol Use: No Hx Substance Use: No Preferred Language: Micronesian Communication Ability: Unable Flower Maker Required: No Beliefs That Will Affect Care: None Current Living Situation: Other Current Living Situation Comment: fiance and roommate Feels Safe at Home: Yes Assistive Devices: Denture - Upper, Denture - Lower and Glasses Allergies Allergies Allergy/AdvReac Type Severity Reaction Status Date / Time Penicillins Allergy Severe Throat Verified 07/11/21 19:20 swells shut Home Meds Home Medications Medication Instructions Recorded Confirmed aspirin 81 mg tablet,delayed 81 mg PO DAILY 02/16/21 07/11/21 release atorvastatin 10 mg tablet 10 mg PO HS 02/16/21 07/11/21 famotidine 20 mg tablet 20 mg PO DAILY PRN 02/16/21 07/11/21 hydroxyzine HCl 10 mg tablet 10 mg PO BID PRN 02/16/21 07/11/21 insulin glargine 100 unit/mL 0 unit SUBCUT DAILY PRN 02/16/21 07/11/21 subcutaneous solution (Lantus U-100 Insulin) insulin lispro 100 unit/mL 0 unit CONTINUOUS SUBCUTANEOUS 02/16/21 07/11/21 subcutaneous solution INFUSION CONTINOUS metoprolol tartrate 25 mg tablet 25 mg PO BID 02/16/21 07/11/21 montelukast 10 mg tablet 10 mg PO DAILY 02/16/21 07/11/21 (Singulair) lisinopril 10 1 tab PO DAILY 07/11/21 07/11/21 mg-hydrochlorothiazide 12.5 mg tablet Results & Data (ED) Vital Signs Vital Signs - 24 hr 07/11/21 18:48 07/11/21 18:53 07/11/21 19:00 Temperature 36.8 C Temperature Source Oral Pulse Rate 125 H 112 H 119 H Pulse Rate from SpO2 Sensor 125 H 119 H Pulse Rhythm Regular Pulse Strength Normal Respiratory Rate 13 18 15 Respiratory Effort / Characteristics Non-Labored Respiratory Depth Normal Respiratory Pattern Regular Blood Pressure 121/83 Blood Pressure Mean 95 Blood Pressure Position Lying Pulse Oximetry 99 98 100 Oxygen Delivery Method Room Air Sepsis Recent Fever Within 48 Hours No Sepsis New/Unexplained Change in Mental Status N/A Sepsis Action Taken by Nursing No Action Required 07/11/21 19:30 07/11/21 20:00 07/11/21 20:30 Temperature Temperature Source Pulse Rate 123 H 122 H 119 H Pulse Rate from SpO2 Sensor 123 H 123 H 120 H Pulse Rhythm Pulse Strength Respiratory Rate 17 15 18 Respiratory Effort / Characteristics Respiratory Depth Respiratory Pattern Blood Pressure Blood Pressure Mean Blood Pressure Position Pulse Oximetry 100 100 100 Oxygen Delivery Method Sepsis Recent Fever Within 48 Hours Sepsis New/Unexplained Change in Mental Status Sepsis Action Taken by Nursing 07/11/21 20:50 07/11/21 21:00 07/11/21 21:30 Temperature Temperature Source Pulse Rate 121 H 119 H Pulse Rate from SpO2 Sensor 124 H Pulse Rhythm Pulse Strength Respiratory Rate 24 19 17 Respiratory Effort / Characteristics Respiratory Depth Respiratory Pattern Blood Pressure 131/71 136/77 153/91 H Blood Pressure Mean 91 96 111 Blood Pressure Position Pulse Oximetry 100 Oxygen Delivery Method Sepsis Recent Fever Within 48 Hours Sepsis New/Unexplained Change in Mental Status Sepsis Action Taken by Nursing 07/11/21 21:58 07/11/21 22:00 07/11/21 22:04 Temperature Temperature Source Pulse Rate 127 H Pulse Rate from SpO2 Sensor 127 H Pulse Rhythm Pulse Strength Respiratory Rate 17 23 Respiratory Effort / Characteristics Respiratory Depth Respiratory Pattern Blood Pressure 149/97 H Blood Pressure Mean 114 Blood Pressure Position Pulse Oximetry 99 Oxygen Delivery Method Sepsis Recent Fever Within 48 Hours Sepsis New/Unexplained Change in Mental Status Sepsis Action Taken by Nursing Laboratory Data Result diagrams: 07/11/21 19:28 07/11/21 19:28 Lab Results 07/11/21 07/11/21 07/11/21 Range/Units 18:43 19:00 19:28 WBC 9.64 (4.8-10.8) K/uL RBC 4.15 L (4.2-5.4) M/uL Hgb 12.2 (12.0-16.0) g/dL Hct 37.5 (37-47) % MCV 90.4 (80-100) fL MCH 29.4 (25-34) pg MCHC 32.5 (32-36) g/dL RDW Std Deviation 41.4 (36.4-46.3) fL RDW Coeff of Alisa 12.5 (11.5-14.5) % Plt Count 359 (130-400) K/uL MPV 9.7 (7.4-10.4) fL Immature Gran % (Auto) 0.1 % Neut % (Auto) 84.3 % Lymph % (Auto) 10.1 % [place] % (Auto) 4.6 % Eos % (Auto) 0.1 % Baso % (Auto) 0.8 % Neut # (Auto) 8.13 H (1.4-6.5) K/uL Lymph # (Auto) 0.97 L (1.2-3.4) K/uL [place] # (Auto) 0.44 (0.11-0.59) K/uL Eos # (Auto) 0.01 (0-0.5) K/uL Baso # (Auto) 0.08 (0-0.2) K/uL Immature Gran # (Auto) 0.01 (0.00-0.02) K/uL VBG pH (7.36-7.41) VBG pCO2 (38-50) mmHg VBG pO2 mmHg VBG HCO3 mmol/L VBG O2 Saturation % VBG Base Excess mEq/L Barometric Pressure mm/Hg Sodium (136-145) mmol/L Potassium (3.5-5.1) mmol/L Chloride (98-107) mmol/L Carbon Dioxide (21-32) mmol/L Anion Gap (3-11) BUN (6-23) mg/dl Creatinine (0.6-1.2) mg/dl Est Cr Clr Drug Dosing ml/min Est GFR ( Amer) ml/min Est GFR (Non-Af Amer) ml/min BUN/Creatinine Ratio (10-20) Glucose (70-99(Fasting)) mg/dl POC Glucose 376 H* (70-99) mg/dl Calcium (8.5-10.1) mg/dl Magnesium (1.7-2.4) mg/dl Total Bilirubin (0.2-1.0) mg/dl AST (13-39) U/L ALT (7-52) U/L Alkaline Phosphatase (34-104) U/L Troponin I (0-0.04) ng/ml Total Protein (6.0-8.3) gm/dl Albumin (3.4-5.0) gm/dl Globulin (2.5-4.0) gm/dl Albumin/Globulin Ratio (0.9-2) Lipase (11-82) U/L HCG, Qual (Negative) Urine Color Urine Appearance (Clear) Urine pH (4.5-7.5) Ur Specific [place] (1.000-1.030) Urine Protein (Negative) Urine Glucose (UA) (Negative) Urine Ketones (Negative) Urine Blood (Negative) Urine Nitrite (Negative) Urine Bilirubin (Negative) Urine Urobilinogen (Negative) Ur Leukocyte Esterase (Negative) Urine WBC (Auto) (0-5) /hpf Urine RBC (Auto) (0-4) /hpf U Hyaline Cast (Auto) (0-5) /lpf U Epithel Cells (Auto) (0-5) /lpf Urine Bacteria (Auto) (Negative) SARS-CoV-2, RNA, NAAT NEGATIVE (NEGATIVE) 07/11/21 07/11/21 07/11/21 Range/Units 19:28 19:28 19:28 WBC (4.8-10.8) K/uL RBC (4.2-5.4) M/uL Hgb (12.0-16.0) g/dL Hct (37-47) % MCV (80-100) fL MCH (25-34) pg MCHC (32-36) g/dL RDW Std Deviation (36.4-46.3) fL RDW Coeff of Alisa (11.5-14.5) % Plt Count (130-400) K/uL MPV (7.4-10.4) fL Immature Gran % (Auto) % Neut % (Auto) % Lymph % (Auto) % [place] % (Auto) % Eos % (Auto) % Baso % (Auto) % Neut # (Auto) (1.4-6.5) K/uL Lymph # (Auto) (1.2-3.4) K/uL [place] # (Auto) (0.11-0.59) K/uL Eos # (Auto) (0-0.5) K/uL Baso # (Auto) (0-0.2) K/uL Immature Gran # (Auto) (0.00-0.02) K/uL VBG pH 7.30 L (7.36-7.41) VBG pCO2 40 (38-50) mmHg VBG pO2 36 mmHg VBG HCO3 20 mmol/L VBG O2 Saturation < 60.0 % VBG Base Excess -6.3 mEq/L Barometric Pressure 726.3 mm/Hg Sodium 135 L (136-145) mmol/L Potassium 4.7 (3.5-5.1) mmol/L Chloride 100 (98-107) mmol/L Carbon Dioxide 18 L (21-32) mmol/L Anion Gap 17 H (3-11) BUN 20 (6-23) mg/dl Creatinine 0.77 (0.6-1.2) mg/dl Est Cr Clr Drug Dosing 71.0 ml/min Est GFR ( Amer) 111.9 ml/min Est GFR (Non-Af Amer) 96.6 ml/min BUN/Creatinine Ratio 26.0 H (10-20) Glucose 406 H* (70-99(Fasting)) mg/dl POC Glucose (70-99) mg/dl Calcium 8.7 (8.5-10.1) mg/dl Magnesium (1.7-2.4) mg/dl Total Bilirubin 0.6 (0.2-1.0) mg/dl AST 16 (13-39) U/L ALT 15 (7-52) U/L Alkaline Phosphatase 87 (34-104) U/L Troponin I < 0.03 (0-0.04) ng/ml Total Protein 6.2 (6.0-8.3) gm/dl Albumin 3.9 (3.4-5.0) gm/dl Globulin 2.3 L (2.5-4.0) gm/dl Albumin/Globulin Ratio 1.7 (0.9-2) Lipase 12 (11-82) U/L HCG, Qual Negative (Negative) Urine Color Urine Appearance (Clear) Urine pH (4.5-7.5) Ur Specific [place] (1.000-1.030) Urine Protein (Negative) Urine Glucose (UA) (Negative) Urine Ketones (Negative) Urine Blood (Negative) Urine Nitrite (Negative) Urine Bilirubin (Negative) Urine Urobilinogen (Negative) Ur Leukocyte Esterase (Negative) Urine WBC (Auto) (0-5) /hpf Urine RBC (Auto) (0-4) /hpf U Hyaline Cast (Auto) (0-5) /lpf U Epithel Cells (Auto) (0-5) /lpf Urine Bacteria (Auto) (Negative) SARS-CoV-2, RNA, NAAT (NEGATIVE) 07/11/21 07/11/21 07/11/21 Range/Units 19:28 20:46 20:51 WBC (4.8-10.8) K/uL RBC (4.2-5.4) M/uL Hgb (12.0-16.0) g/dL Hct (37-47) % MCV (80-100) fL MCH (25-34) pg MCHC (32-36) g/dL RDW Std Deviation (36.4-46.3) fL RDW Coeff of Alisa (11.5-14.5) % Plt Count (130-400) K/uL MPV (7.4-10.4) fL Immature Gran % (Auto) % Neut % (Auto) % Lymph % (Auto) % [place] % (Auto) % Eos % (Auto) % Baso % (Auto) % Neut # (Auto) (1.4-6.5) K/uL Lymph # (Auto) (1.2-3.4) K/uL [place] # (Auto) (0.11-0.59) K/uL Eos # (Auto) (0-0.5) K/uL Baso # (Auto) (0-0.2) K/uL Immature Gran # (Auto) (0.00-0.02) K/uL VBG pH (7.36-7.41) VBG pCO2 (38-50) mmHg VBG pO2 mmHg VBG HCO3 mmol/L VBG O2 Saturation % VBG Base Excess mEq/L Barometric Pressure mm/Hg Sodium (136-145) mmol/L Potassium (3.5-5.1) mmol/L Chloride (98-107) mmol/L Carbon Dioxide (21-32) mmol/L Anion Gap (3-11) BUN (6-23) mg/dl Creatinine (0.6-1.2) mg/dl Est Cr Clr Drug Dosing ml/min Est GFR ( Amer) ml/min Est GFR (Non-Af Amer) ml/min BUN/Creatinine Ratio (10-20) Glucose (70-99(Fasting)) mg/dl POC Glucose 336 H* (70-99) mg/dl Calcium (8.5-10.1) mg/dl Magnesium 1.8 (1.7-2.4) mg/dl Total Bilirubin (0.2-1.0) mg/dl AST (13-39) U/L ALT (7-52) U/L Alkaline Phosphatase (34-104) U/L Troponin I (0-0.04) ng/ml Total Protein (6.0-8.3) gm/dl Albumin (3.4-5.0) gm/dl Globulin (2.5-4.0) gm/dl Albumin/Globulin Ratio (0.9-2) Lipase (11-82) U/L HCG, Qual (Negative) Urine Color Yellow Urine Appearance Clear (Clear) Urine pH 5.0 (4.5-7.5) Ur Specific [place] 1.024 (1.000-1.030) Urine Protein Negative (Negative) Urine Glucose (UA) 3+ H (Negative) Urine Ketones 3+ H (Negative) Urine Blood 3+ H (Negative) Urine Nitrite Positive A (Negative) Urine Bilirubin Negative (Negative) Urine Urobilinogen Negative (Negative) Ur Leukocyte Esterase Negative (Negative) Urine WBC (Auto) 5-10 H (0-5) /hpf Urine RBC (Auto) >30 H (0-4) /hpf U Hyaline Cast (Auto) 0 (0-5) /lpf U Epithel Cells (Auto) 20-30 H (0-5) /lpf Urine Bacteria (Auto) 2+ H (Negative) SARS-CoV-2, RNA, NAAT (NEGATIVE) 07/11/21 Range/Units 22:00 WBC (4.8-10.8) K/uL RBC (4.2-5.4) M/uL Hgb (12.0-16.0) g/dL Hct (37-47) % MCV (80-100) fL MCH (25-34) pg MCHC (32-36) g/dL RDW Std Deviation (36.4-46.3) fL RDW Coeff of Alisa (11.5-14.5) % Plt Count (130-400) K/uL MPV (7.4-10.4) fL Immature Gran % (Auto) % Neut % (Auto) % Lymph % (Auto) % [place] % (Auto) % Eos % (Auto) % Baso % (Auto) % Neut # (Auto) (1.4-6.5) K/uL Lymph # (Auto) (1.2-3.4) K/uL [place] # (Auto) (0.11-0.59) K/uL Eos # (Auto) (0-0.5) K/uL Baso # (Auto) (0-0.2) K/uL Immature Gran # (Auto) (0.00-0.02) K/uL VBG pH (7.36-7.41) VBG pCO2 (38-50) mmHg VBG pO2 mmHg VBG HCO3 mmol/L VBG O2 Saturation % VBG Base Excess mEq/L Barometric Pressure mm/Hg Sodium (136-145) mmol/L Potassium (3.5-5.1) mmol/L Chloride (98-107) mmol/L Carbon Dioxide (21-32) mmol/L Anion Gap (3-11) BUN (6-23) mg/dl Creatinine (0.6-1.2) mg/dl Est Cr Clr Drug Dosing ml/min Est GFR ( Amer) ml/min Est GFR (Non-Af Amer) ml/min BUN/Creatinine Ratio (10-20) Glucose (70-99(Fasting)) mg/dl POC Glucose 262 H (70-99) mg/dl Calcium (8.5-10.1) mg/dl Magnesium (1.7-2.4) mg/dl Total Bilirubin (0.2-1.0) mg/dl AST (13-39) U/L ALT (7-52) U/L Alkaline Phosphatase (34-104) U/L Troponin I (0-0.04) ng/ml Total Protein (6.0-8.3) gm/dl Albumin (3.4-5.0) gm/dl Globulin (2.5-4.0) gm/dl Albumin/Globulin Ratio (0.9-2) Lipase (11-82) U/L HCG, Qual (Negative) Urine Color Urine Appearance (Clear) Urine pH (4.5-7.5) Ur Specific [place] (1.000-1.030) Urine Protein (Negative) Urine Glucose (UA) (Negative) Urine Ketones (Negative) Urine Blood (Negative) Urine Nitrite (Negative) Urine Bilirubin (Negative) Urine Urobilinogen (Negative) Ur Leukocyte Esterase (Negative) Urine WBC (Auto) (0-5) /hpf Urine RBC (Auto) (0-4) /hpf U Hyaline Cast (Auto) (0-5) /lpf U Epithel Cells (Auto) (0-5) /lpf Urine Bacteria (Auto) (Negative) SARS-CoV-2, RNA, NAAT (NEGATIVE) Administered Medications Insulin Human Regular 250 (units/ Sodium Chloride) 250 mls @ 4.6 mls/hr IV .Q24H JEF; Protocol Stop: 08/10/21 20:14 Last Admin: 07/11/21 20:48 Dose: 4.6 unit/hr, 4.6 mls/hr Documented by: [id number] Cosigned by: [id number] Discontinued Medications Sodium Chloride (Nss 1000ml) 1,000 mls @ 999 mls/hr IV .Q1H1M JEF Stop: 07/11/21 19:45 Last Infusion: 07/11/21 19:47 Dose: 0 mls/hr Documented by: [id number] Admin: 07/11/21 19:01 Dose: 999 mls/hr Documented by: [id number] Sodium Chloride (Nss 1000ml) 1,000 mls @ 999 mls/hr IV .Q1H1M ONE Stop: 07/11/21 21:10 Last Infusion: 07/11/21 21:28 Dose: 0 mls/hr Documented by: [id number] Admin: 07/11/21 20:13 Dose: 999 mls/hr Documented by: [id number] Metoclopramide HCl (Metoclopramide Hcl Inj 5 Mg/Ml 2 Ml Vial) 5 mg IV ONE ONE Stop: 07/11/21 20:15 Last Admin: 07/11/21 20:23 Dose: 5 mg Documented by: [id number] Miscellaneous (Stat Iv Infusion Titration Per Protocol) 1 ea N/A NOW STA Stop: 07/11/21 20:11 Last Admin: 07/11/21 20:34 Dose: 1 ea Documented by: [id number] Ondansetron HCl (Ondansetron Inj 2 Mg/Ml 2 Ml Vial) 4 mg IV NOW STA Stop: 07/11/21 18:46 Last Admin: 07/11/21 19:01 Dose: 4 mg Documented by: [id number] Discharge Plan Visit Data Chief Complaint: Hyperglycemia Stated Complaint: Hyperglycemia ED Provider: Rene Mobley Discharge Problem: DKA, type 1, Tachycardia, Nausea & vomiting Patient Disposition: Being Evaluated by Hospitalist Forms Stand Alone Forms: [facility] [employer] Prescriptions Prescriptions: No Action Lantus U-100 Insulin 100 unit/mL solution 0 unit SUBCUT DAILY PRN (Reason: BSG CONTROL) RF: 0 atorvastatin 10 mg tablet 10 mg PO HS RF: 0 aspirin 81 mg tablet,delayed release (DR/EC) 81 mg PO DAILY RF: 0 famotidine 20 mg tablet 20 mg PO DAILY PRN (Reason: Acid Reflux) RF: 0 montelukast [Singulair] 10 mg tablet 10 mg PO DAILY RF: 0 insulin lispro 100 unit/mL solution 0 unit continuous subcutaneous infusion CONTINOUS RF: 0 hydroxyzine HCl 10 mg tablet 10 mg PO BID PRN (Reason: Itching) RF: 0 metoprolol tartrate 25 mg tablet 25 mg PO BID RF: 0 lisinopril-hydrochlorothiazide 10-12.5 mg tablet 1 tab PO DAILY RF: 0 Referrals Referrals: Tonio Summers M.D. [Primary Care Provider] - Discharge Problem: DKA, type 1 Qualifiers: Diabetes mellitus complication detail: without coma Qualified Code(s): E10.10 - Type 1 diabetes mellitus with ketoacidosis without coma Nausea & vomiting Qualifiers: Vomiting type: unspecified Qualified Code(s): R11.2 - Nausea with vomiting, unspecified
[2021-07-11 19:42] LABS: Base Excess VBG -6.3 mEq/L; HCO3 VBG 20 mmol/L; Oxygen Saturation VBG < 60.0 %; PCO2 VBG 40 mmHg (38-50); PO2 VBG 36 mmHg
[2021-07-11 19:44] LABS: Basophils # (auto) 0.08 K/uL (0-0.2); Basophils % (auto) 0.8 %; Eosinophils # (auto) 0.01 K/uL (0-0.5); Eosinophils % (auto) 0.1 %; Hematocrit (blood only) 37.5 % (37-47); Hemoglobin 12.2 g/dL (12.0-16.0); Immature Granulocytes # (auto) 0.01 K/uL (0.00-0.02); Immature Granulocytes % (auto) 0.1 %; Lymphocytes # (auto) 0.97 K/uL (1.2-3.4); Lymphocytes % (auto) 10.1 %; Mean Corpuscular Hemoglobin 29.4 pg (25-34); Mean Corpuscular Hgb Conc 32.5 g/dL (32-36); Mean Corpuscular Volume 90.4 fL (80-100); Mean Platelet Volume 9.7 fL (7.4-10.4); Monocytes # (auto) 0.44 K/uL (0.11-0.59); Monocytes % (auto) 4.6 %; Neutrophils # (auto) 8.13 K/uL (1.4-6.5); Neutrophils % (auto) 84.3 %; Platelet Count 359 K/uL (130-400); RDW Coefficient of Variation 12.5 % (11.5-14.5); RDW Standard Deviation 41.4 fL (36.4-46.3); Red Blood Count 4.15 M/uL (4.2-5.4); White Blood Count 9.64 K/uL (4.8-10.8)
[2021-07-11 20:01] LABS: Pregnancy Test, Serum Negative (Negative)
[2021-07-11 20:03] LABS: Troponin I < 0.03 ng/ml (0-0.04)
[2021-07-11 20:08] LABS: Alanine Aminotransferase 15 U/L (7-52); Albumin Globulin Ratio 1.7 (0.9-2); Albumin Level 3.9 gm/dl (3.4-5.0); Alkaline Phosphatase 87 U/L (34-104); Anion Gap 17 (3-11); Aspartate Aminotransferase 16 U/L (13-39); Bilirubin,Total 0.6 mg/dl (0.2-1.0); Blood Urea Nitrogen 20 mg/dl (6-23); Calcium 8.7 mg/dl (8.5-10.1); Carbon Dioxide 18 mmol/L (21-32); Chloride 100 mmol/L (98-107); Est GFR (African American) 111.9 ml/min; Est GFR (Non-African American) 96.6 ml/min; Globulin 2.3 gm/dl (2.5-4.0); Glucose 406 mg/dl (70-99(Fasting)); Lipase 12 U/L (11-82); Potassium 4.7 mmol/L (3.5-5.1); Sodium 135 mmol/L (136-145); Total Protein 6.2 gm/dl (6.0-8.3)
[2021-07-11] MEDS ORDERED: DEXTROSE 50% 50 ML SYRINGE IV PRN (20:10)
[2021-07-11] MEDS ORDERED: GLUCOSE 40% GEL 15 GM TUBE PO PRN (20:10)
[2021-07-11] MEDS ORDERED: CARBOHYDRATES FOR HYPOGLYCEMIA PO PRN (20:10)
[2021-07-11] MEDS ORDERED: GLUCOSE 10 TABS/TUBE PO PRN (20:10)
[2021-07-11] MEDS ORDERED: GLUCAGON FOR INJ 1 MG VIAL SQ PRN (20:10)
[2021-07-11] MEDS ORDERED: SODIUM CHLORIDE 0.9% 1000ML 1,000 ML IV ONE (20:10)
[2021-07-11] MEDS ORDERED: STAT IV Infusion **Titration per Protocol STA (20:10)
[2021-07-11] MEDS ORDERED: METOCLOPRAMIDE HCL INJ 5 MG/ML 2 ML VIAL IV ONE (20:14)
[2021-07-11] MEDS ORDERED: INSULIN REGULAR 250 UNITS in SODIUM CHLORIDE 0.9% 247.5 ML IV SCH (20:15)
[2021-07-11] MEDS ORDERED: INSULIN ASPART PER UNIT SC SCH (21:00)
--- NOTE | 2021-07-11 21:00 | History & Physical Report ---
Date of Service July 11, 2021 Assessment & Plan (1) Hyperglycemia: Plan: 40 y/o F w/ PMHx of DM1, HTN, tobacco use disorder, substance abuse disorder, asthma, GERD who presents w/ hyperglycemia in context of home BSG monitor malfunctioning x 4 days and possible UTI. BSG 440s at EMS arrival and initial presentation was a day of intractable nausea/vomiting and mild polydipsia. BSG 406 at admission, 188 most recent POC. AG 17. UA w/ 3+ ketones. VBG pH 3.0. Bicarb 20. No serum ketones obtained. 01/2021 admission for DKA. s/p 2L NSS bolus. Receiving IV insulin drip at 4.6u/hr->3.3u/hr, currently held. Home pump basal insulin 13-17u/day. Tentatively would consider Lantus 8u BID, SSI w/ goal 110-150, CF 40, CR 20. Q1h BSGs. NPO. Check BMP and VBG at midnight. Transition to sq after. LR 150mL/hr. Follow BMP. Check A1c in AM. A1c was 10.4 on 02/17/21. Consult DM educator. Will need to glucose monitor. (2) UTI (urinary tract infection): Plan: - absence of subjective urinary symptoms - treat w/ cipro 400mg IV BID because may be contributor to hyperglycemia. consider shorter (uncomplicated UTI) treatment course. (3) Tachycardia: Plan: - chronic per chart review - ecg reviewed, unchanged from 01/2021 ecg, slight ST depressions in anterior leads unchanged - check magnesium level (4) Tobacco abuse: Plan: - nicotine patch 21mg daily; 1 PPD smoker (5) Asthma: Plan: - continue home Singulair (6) Hypertension: Plan: - stable, continue home lisinopril-hctz (7) GERD (gastroesophageal reflux disease): Plan: - continue home PRN famotidine (8) Substance abuse: Plan: FEN: NPO. LR 150mL/hr ppx: Lovenox code: full dispo: med tele History of Present Illness Chief Complaint: hyperglycemia Primary Care Provider: Tonio Summers 40 y/o F w/ PMHx of DM1, HTN, tobacco use disorder, asthma, GERD, migraines, and multiple prior admissions for DKA (most recently 01/2021) who presents w/ intractable N/V today. She states blood glucose sensors stopped working 4 days ago though her pump continued to function. BSG in 440s upon EMS arrival. Denies abd pain or current N/V. Last emesis 3 hours ago. Requesting water. 1ppd smoker. No appetite currently. She denies any pain. No recent drug use. No dizziness or headache. + mild polydipsia x 2 days. ED course: 2L NSS. Insulin drip. Allergies Allergy/AdvReac Type Severity Reaction Status Date / Time Penicillins Allergy Severe Throat Verified 07/11/21 19:20 swells shut Home Medications Medication Instructions Recorded Confirmed Type aspirin 81 mg tablet,delayed 81 mg PO DAILY 02/16/21 07/11/21 History release atorvastatin 10 mg tablet 10 mg PO HS 02/16/21 07/11/21 History famotidine 20 mg tablet 20 mg PO DAILY PRN 02/16/21 07/11/21 History hydroxyzine HCl 10 mg tablet 10 mg PO BID PRN 02/16/21 07/11/21 History insulin glargine 100 unit/mL 0 unit SUBCUT DAILY PRN 02/16/21 07/11/21 History subcutaneous solution (Lantus U-100 Insulin) insulin lispro 100 unit/mL 0 unit CONTINUOUS SUBCUTANEOUS 02/16/21 07/11/21 History subcutaneous solution INFUSION CONTINOUS metoprolol tartrate 25 mg tablet 25 mg PO BID 02/16/21 07/11/21 History montelukast 10 mg tablet 10 mg PO DAILY 02/16/21 07/11/21 History (Singulair) lisinopril 10 1 tab PO DAILY 07/11/21 07/11/21 History mg-hydrochlorothiazide 12.5 mg tablet Past Med/Surg History Medical History (Updated 07/12/21 @ 00:27 by Anand De Paz MD) Asthma Diabetes type I DKA, type 1 Environmental and seasonal allergies GERD (gastroesophageal reflux disease) Hypertension Migraine Mild acid reflux Substance abuse Tachycardia Tobacco abuse Surgical History History of appendectomy History of Family History Other Family history non-contributory Social History Smoking Status: Current every day smoker Tobacco Type: Cigarettes Second Hand Exposure: No; Do You Dip or Chew Tobacco: No; Tobacco Cessation Education Requested by Patient: No Hx Alcohol Use: Yes Alcohol type: hard liquor Hx Substance Use: No Preferred Language: Ukrainian Communication Ability: Effective Procurement Agent Required: No Beliefs That Will Affect Care: None Current Living Situation: Other Current Living Situation Comment: fiance and roommate Other Information That Helps Us Care for You: No Feels Safe at Home: Yes Safety Concerns: Feels Safe At This Time Assistive Devices: Denture - Upper, Denture - Lower and Glasses Review of Systems Review of Systems: All systems reviewed & are unremarkable except as noted in HPI & below Physical Exam Physical Exam: General: A&Ox4. NAD. Cooperative. Sleepy, but arousable. HEENT: Atraumatic, normocephalic. Oropharynx w/o erythema. Pulm: CTAB. -wheezes, -rales, -rhonchi. No respiratory distress. Cardiac: RRR, -mrg. Radial pulses intact on right, exam on right limited by IV site. Abdominal: Nontender, nondistended, soft. Integ: Warm, dry, intact Msk: Moving all extremities. Results & Data Results & Data ([facility]) Vital Signs (Past 12 Hours) Vital Signs Temp Pulse Resp BP Pulse Ox 07/11/21 20:30 119 H 18 100 07/11/21 20:00 122 H 15 100 07/11/21 19:30 123 H 17 100 07/11/21 19:00 119 H 15 100 07/11/21 18:53 36.8 C 112 H 18 121/83 98 07/11/21 18:48 125 H 13 99 Laboratory Results pseudo hypoNa. wbc 9.64. Hb 12.2. vbg pH 7.30. Na 135. AG 17. BSG 406. hcg neg. 07/11/21 19:28 07/11/21 19:28 Cardiac Enzymes 07/11/21 Range/Units 19:28 AST 16 (13-39) U/L Troponin I < 0.03 (0-0.04) ng/ml CBC 07/11/21 Range/Units 19:28 WBC 9.64 (4.8-10.8) K/uL RBC 4.15 L (4.2-5.4) M/uL Hgb 12.2 (12.0-16.0) g/dL Hct 37.5 (37-47) % Plt Count 359 (130-400) K/uL Neut # (Auto) 8.13 H (1.4-6.5) K/uL Lymph # (Auto) 0.97 L (1.2-3.4) K/uL Quay # (Auto) 0.44 (0.11-0.59) K/uL Eos # (Auto) 0.01 (0-0.5) K/uL Baso # (Auto) 0.08 (0-0.2) K/uL Comprehensive Metabolic Panel 07/11/21 Range/Units 19:28 Sodium 135 L (136-145) mmol/L Potassium 4.7 (3.5-5.1) mmol/L Chloride 100 (98-107) mmol/L Carbon Dioxide 18 L (21-32) mmol/L BUN 20 (6-23) mg/dl Creatinine 0.77 (0.6-1.2) mg/dl Glucose 406 H* (70-99(Fasting)) mg/dl Calcium 8.7 (8.5-10.1) mg/dl AST 16 (13-39) U/L ALT 15 (7-52) U/L Alkaline Phosphatase 87 (34-104) U/L Total Protein 6.2 (6.0-8.3) gm/dl Albumin 3.9 (3.4-5.0) gm/dl Intake and Output 07/11/21 07/11/21 07/11/21 06:59 14:59 22:59 Intake Total 1000 / 1000 Balance 1000 / 1000 Intake: IV 1000 / 1000 Sodium Chloride 0.9% 1000ML 1, 1000 / 1000 000 ml @ 999 mls/hr IV .Q1H1M [facility] Rx#:[id number] Other: Weight 46.3 kg Weight Measurement Method Built in [facility] Patient Weight 07/12/21 06:59 Weight 46.3 kg ECG Additional Comments: 07/11/21 ecg: per my interpretation: sinus tach 121. Unchanged from 02/16/21 ecg, including slight anterior lead st depressions. Normal axis and intervals. Code Status & VTE Plan Code Status full VTE Prophylaxis Plan VTE Prophylaxis will be ordered: Yes Supervising Physician Co-Signing Physician Notes Patient seen and examined, chart reviewed, case discussed with Dr. De Paz and I agree with the assessment and plan as above. In brief, patient is a 41yo female with Type I DM, insulin pump and CGM in place presenting with hyperglycemia, mild DKA with pH lf 7.3, HCO3 of 18. Patient is a poor historian and is somnolent and minimally cooperative during encounter. She states she has not been feeling ill. Denies urinary complaints. Her CGM stopped working 4 days ago which is why she says she is in DKA. Her pump remained in place - no reported malfunction. Did not recently change position. Intractable nausea, vomiting, EAQ=407 on arrival Patient started on insulin gtt in the ER and administered IVF x 2 liters On exam she is afebrile, tachycardic which is baseline, responsive but minimally cooperative with exam and questioning Skin -intact, no rash HEENT - NC/AT, PERRL, MMM, Neck supple Heart - +S1/S2, regular, no m/r/g Lungs - CTA Abd - +BS, soft, NT/ND Ext - no edema Labs and images reviewed Assessment/Plan -Mild DKA - continue IVF and insulin infusion -Patient's gap closed and VBG improved - bsg = 102 - Lantus 8 u ordered -Monitor VBG, Chemistry for acid base and anion gap - next at 0400 -Patient will need new glucose monitor -Will treat UTI - patient denies urinary complaints, however, may be driving her DKA Resident Activity Tracking Resident Involvement: Resident Care Provided Care Provided: Adult Hospital Medicine
[2021-07-11 21:10] LABS: Appearance Urine Clear (Clear); Bacteria Urine Automated 2+ (Negative); Bilirubin Urine Negative (Negative); Blood Urine 3+ (Negative); Cast Urine Automated 0 /lpf (0-5); Color Urine Yellow; Epithelial Cell Urine Auto 20-30 /lpf (0-5); Glucose Urine UA 3+ (Negative); Ketones Urine 3+ (Negative); Leukocyte Esterase Urine Negative (Negative); Nitrite Urine Positive (Negative); Protein Urine Negative (Negative); RBC Urine Automated >30 /hpf (0-4); Specific Gravity Urine 1.024 (1.000-1.030); Urobilinogen Urine Negative (Negative)
[2021-07-11] MEDS ORDERED: ENOXAPARIN INJ 40 MG/0.4 ML SYR SQ STA (22:24)
[2021-07-11] MEDS ORDERED: INSULIN GLARGINE SOLOSTAR 100 UNITS/ML 3 ML PEN SC STA (22:56)
[2021-07-12] MEDS ORDERED: CIPROFLOXACIN / D5W 400 MG/200 ML BAG IV STA (00:17)
[2021-07-12 01:06] LABS: HCO3 VBG 22 mmol/L; Oxygen Saturation VBG 79.1 %; PCO2 VBG 37 mmHg (38-50); PO2 VBG 46 mmHg; pH VBG 7.39 (7.36-7.41)
[2021-07-12] MEDS ORDERED: ACETAMINOPHEN 325 MG TAB PO PRN (01:15)
[2021-07-12] MEDS ORDERED: POLYETHYLENE (MIRALAX) 17 GM PACK PO PRN (01:15)
[2021-07-12] MEDS ORDERED: FAMOTIDINE 20 MG TAB PO PRN (01:15)
[2021-07-12 01:19] LABS: BUN Creatinine Ratio 26.2 (10-20); Calcium 7.9 mg/dl (8.5-10.1); Creatinine Clr Calc Pharmacy 84.1 ml/min; Est GFR (African American) 128.7 ml/min; Est GFR (Non-African American) 111.1 ml/min
[2021-07-12] MEDS: LACTATED RINGER'S 1,000 ML IV SCH ×2 (01:50→09:45)
[2021-07-12] MEDS ORDERED: DKA GOAL RANGE 150-250 mg/dl ONE (02:31)
[2021-07-12] MEDS ORDERED: STAT IV Infusion **Titration per Protocol STA (02:31)
[2021-07-12] MEDS ORDERED: INSULIN GLARGINE SOLOSTAR 100 UNITS/ML 3 ML PEN SC STA ×2 (02:38)
[2021-07-12] MEDS ORDERED: LACTATED RINGER'S 1,000 ML IV SCH (02:45)
[2021-07-12] MEDS ORDERED: PENDING D5 1/2NS+40mEq KCL IVF SCH (02:45)
[2021-07-12] MEDS ORDERED: PENDING 1/2NSS+40mEq KCL IVF SCH (02:45)
[2021-07-12] MEDS ORDERED: INSULIN ASPART PER UNIT SC ONE (03:15)
[2021-07-12 04:49] LABS: Basophils # (auto) 0.04 K/uL (0-0.2); Basophils % (auto) 0.3 %; Eosinophils # (auto) 0.02 K/uL (0-0.5); Eosinophils % (auto) 0.2 %; Hematocrit (blood only) 31.5 % (37-47); Hemoglobin 10.4 g/dL (12.0-16.0); Immature Granulocytes # (auto) 0.04 K/uL (0.00-0.02); Immature Granulocytes % (auto) 0.3 %; Lymphocytes % (auto) 20.4 %; Mean Corpuscular Hemoglobin 29.6 pg (25-34); Mean Corpuscular Volume 89.7 fL (80-100); Mean Platelet Volume 9.3 fL (7.4-10.4); Monocytes # (auto) 1.02 K/uL (0.11-0.59); Monocytes % (auto) 8.3 %; Neutrophils # (auto) 8.61 K/uL (1.4-6.5); Neutrophils % (auto) 70.5 %; Platelet Count 354 K/uL (130-400); RDW Coefficient of Variation 12.7 % (11.5-14.5); RDW Standard Deviation 41.4 fL (36.4-46.3); Red Blood Count 3.51 M/uL (4.2-5.4); White Blood Count 12.23 K/uL (4.8-10.8)
[2021-07-12 05:12] LABS: Calcium 7.6 mg/dl (8.5-10.1); Creatinine Clr Calc Pharmacy 95.2 ml/min; Est GFR (African American) 129.4 ml/min; Est GFR (Non-African American) 111.6 ml/min; Magnesium 1.6 mg/dl (1.7-2.4); Phosphorus 2.5 mg/dl (2.5-4.9); Potassium 3.7 mmol/L (3.5-5.1)
[2021-07-12] MEDS ORDERED: MONTELUKAST SODIUM 10 MG TABLET PO SCH (09:00)
[2021-07-12] MEDS ORDERED: ASPIRIN 81 MG ECTAB PO SCH (09:00)
[2021-07-12] MEDS ORDERED: METOPROLOL TARTRATE 25 MG TAB PO SCH (09:00)
[2021-07-12] MEDS ORDERED: NICOTINE 21 MG/24 HR TDSY TD SCH (09:00)
[2021-07-12] MEDS ORDERED: LISINOPRIL/HCTZ 10/12.5MG TAB PO SCH (09:00)
[2021-07-12 09:19] LABS: BUN Creatinine Ratio 22.2 (10-20); Calcium 7.7 mg/dl (8.5-10.1); Creatinine Clr Calc Pharmacy 84.6 ml/min; Est GFR (African American) 121.4 ml/min; Est GFR (Non-African American) 104.8 ml/min; Magnesium 1.7 mg/dl (1.7-2.4); Phosphorus 2.6 mg/dl (2.5-4.9); Potassium 3.7 mmol/L (3.5-5.1)
[2021-07-12] MEDS: INSULIN ASPART PER UNIT SC SCH ×2 (09:43→12:52)
[2021-07-12] MEDS ORDERED: CIPROFLOXACIN / D5W 400 MG/200 ML BAG IV SCH (12:00)
[2021-07-12 13:20] LABS: BUN Creatinine Ratio 24.3 (10-20); Calcium 7.8 mg/dl (8.5-10.1); Est GFR (African American) 125.6 ml/min; Est GFR (Non-African American) 108.4 ml/min; Magnesium 1.6 mg/dl (1.7-2.4); Phosphorus 2.9 mg/dl (2.5-4.9); Potassium 3.9 mmol/L (3.5-5.1)
[2021-07-12 16:28] LABS: BUN Creatinine Ratio 23.3 (10-20); Calcium 8.5 mg/dl (8.5-10.1); Creatinine Clr Calc Pharmacy 83.4 ml/min; Est GFR (African American) 119.4 ml/min; Magnesium 1.7 mg/dl (1.7-2.4); Phosphorus 2.3 mg/dl (2.5-4.9); Potassium 3.6 mmol/L (3.5-5.1)
--- NOTE | 2021-07-12 17:11 | Discharge Summary ---
Date of Service July 12, 2021 Admission HPI Per Admitting Provider 40 y/o F w/ PMHx of DM1, HTN, tobacco use disorder, asthma, GERD, migraines, and multiple prior admissions for DKA (most recently 01/2021) who presents w/ intractable N/V today. She states blood glucose sensors stopped working 4 days ago though her pump continued to function. BSG in 440s upon EMS arrival. Denies abd pain or current N/V. Last emesis 3 hours ago. Requesting water. 1ppd smoker. No appetite currently. She denies any pain. No recent drug use. No dizziness or headache. + mild polydipsia x 2 days. ED course: 2L NSS. Insulin drip. Admission Exam Per Admitting Provider General: A&Ox4. NAD. Cooperative. Sleepy, but arousable. HEENT: Atraumatic, normocephalic. Oropharynx w/o erythema. Pulm: CTAB. -wheezes, -rales, -rhonchi. No respiratory distress. Cardiac: RRR, -mrg. Radial pulses intact on right, exam on right limited by IV site. Abdominal: Nontender, nondistended, soft. Integ: Warm, dry, intact Msk: Moving all extremities. Principal Diagnosis Hyperglycemia Discharge Exam Constitutional WD/WN, vitals as above Eyes PERRL, conjunctivae normal, anicteric sclerae ENMT external ear and nose normal, oropharynx normal Neck trachea midline Respiratory normal respiratory effort, lungs clear to auscultation Cardiovascular RRR, no murmur, no edema Gastrointestinal (Abdomen) normal bowel sounds, soft, nontender, no hepatosplenomegaly Skin no rashes, warm and dry Neurologic PERRL, EOMI, accommodation nl, no face palsy, no dysarthria CN's II-XI intact bilaterally; no focal motor deficits Psychiatric A+Ox3, euthymic affect Discharge Data Allergies Allergy/AdvReac Type Severity Reaction Status Date / Time Penicillins Allergy Severe Throat Verified 07/11/21 19:20 swells shut Consultations 07/11/21 20:56 ED Decision to Admit Stat Hospital Course (1) Hyperglycemia: 40 y/o F w/ PMHx of DM1, HTN, tobacco use disorder, substance abuse disorder, asthma, GERD who presents w/ hyperglycemia in context of home BSG monitor malfunctioning x 4 days and possible UTI. -BSG 440s at EMS arrival and initial presentation was a day of intractable nausea/vomiting and mild polydipsia. -BSG 406 at admission, 188 most recent POC. AG 17. UA w/ 3+ ketones. VBG pH 7.30 . Bicarb 20. No serum ketones obtained. -01/2021 pt had similar admission for DKA. -s/p 2L NSS bolus in ED followed by buddy IVF. Receivied IV insulin drip at 4.6u/hr->3.3u/hr and transitioned to subQ insulin followed by transition to home pump basal insulin 13-17u/day. -At the time of discharge patient was placed back onto her home insulin pump with sugars controlled and a corrected pH at 7.42 without anion gap without electrolyte disturbance. (2) UTI (urinary tract infection): -Absence of subjective urinary symptoms -Treated patient with ciprofloxacin 400 mg IV twice daily while in the hospital. -Urine culture came back positive for gram-negative bacillus -Pseudomonas could not be ruled out at this time, so patient was sent 500 mg ciprofloxacin twice daily for 4 days. (3) Tachycardia: - chronic per chart review - ecg reviewed, unchanged from 01/2021 ecg, slight ST depressions in anterior leads unchanged - resolved at the time of discharge. (4) Tobacco abuse: - nicotine patch 21mg daily While in Hospital; 1 PPD smoker (5) Asthma: - continue home Singulair (6) Hypertension: - stable, continue home lisinopril-hctz (7) GERD (gastroesophageal reflux disease): - continue home PRN famotidine (8) Substance abuse: FEN: NPO. LR 150mL/hr ppx: Lovenox code: full dispo: med tele Total Time Total Time Spent Total Time Spent (In Minutes): 30 Discharge Plan Discharge Items Patient Disposition: Home - Self-Care Reason For Visit: HYPERGLYCEMIA Discharge Diagnosis: Hyperglycemia secondary to type 1 diabetes Activity: Per Instructions section Non-emergency contact: Primary Care Provider Call non-emergency contact if: you have any medication questions, your symptoms worsen and your temperature is above 101.5 Follow-up/Referrals: Tonio Summers M.D. [Primary Care Provider] - (Please call office to schedule a follow up appointment) Diet: Carb Count or DM1 Addtl Attending Provider Instructions: You were admitted to the hospital due to elevated blood sugars that caused intractable nausea and vomiting. While you are here you were placed on an insulin and transition to subcutaneous insulin and further transition back to your home insulin pump for which your blood sugars were able to remain under control. You are also able to tolerate eating meals without difficulty and at this time you are clinically deemed safe for discharge home. In addition to your elevated blood sugar, you are found to have urinary tract infection that was confirmed with urine culture. For this we are sending you home with a prescription of antibiotics called ciprofloxacin for 4 days. The UTI could have played a part in why your blood sugars were elevated so please be sure to take all of the antibiotic to ensure eradication. Please follow up with your primary care provider within 1 week of discharge. Has been a pleasure to be a part of your care and we wish you the best in your recovery and you health. Pending Studies at Discharge: Yes Studies:: Urine culture sensitivities. Stand-Alone Forms: My [facility] [employer], Smoking Cessation Medications and DC Order Prescriptions: New ciprofloxacin HCl 500 mg tablet 500 mg PO BID Qty: 8 RF: 0 Continued Lantus U-100 Insulin 100 unit/mL solution 0 unit SUBCUT DAILY PRN (Reason: BSG CONTROL) RF: 0 atorvastatin 10 mg tablet 10 mg PO HS RF: 0 aspirin 81 mg tablet,delayed release (DR/EC) 81 mg PO DAILY RF: 0 famotidine 20 mg tablet 20 mg PO DAILY PRN (Reason: Acid Reflux) RF: 0 montelukast [Singulair] 10 mg tablet 10 mg PO DAILY RF: 0 insulin lispro 100 unit/mL solution 0 unit continuous subcutaneous infusion CONTINOUS RF: 0 hydroxyzine HCl 10 mg tablet 10 mg PO BID PRN (Reason: Itching) RF: 0 metoprolol tartrate 25 mg tablet 25 mg PO BID RF: 0 lisinopril-hydrochlorothiazide 10-12.5 mg tablet 1 tab PO DAILY RF: 0 Discharge Orders: Discharge Order (Routine); Ordered 07/12/21 Ordered By: Abiel Stewart/Other Patient Handouts: Managing Type 1 Diabetes, Diabetic Ketoacidosis, Special Foot Care for Diabetes Admission Data Admit Date/Time: 07/11/21 22:16 Attending Provider: Raina Soliman Admit Provider: Anand De Paz Primary Care Provider: Tonio Summers Other Providers: Sobeida Lombardo Other Interventions: Discharge Summary Assessment (RN) Last Done: 07/12/21 16:54 Supervising Physician Co-Signing Physician Notes Resident Physician Supervision Note: I independently interviewed and examined the patient and verified the roach history and physical, reviewed labs and image studies and agree with resident Dr. Garces findings and care plan. Resident Activity Tracking Resident Involvement: Resident Care Provided Care Provided: Adult Hospital Medicine
--- NOTE | 2021-07-12 17:40 | Communication Note ---
Date of Service: July 12, 2021 Work Excuse Please excuse Gita Tracy from work on July 10, 2021 to July 12, 2021 as she was under my care for an ongoing medical condition that required hospitalization. If you have any questions or concerns, please do not hesitate to contact me at the following number: [phone]. Abiel White DO, MPH
[2021-07-12] MEDS ORDERED: INSULIN GLARGINE SOLOSTAR 100 UNITS/ML 3 ML PEN SC SCH (21:00)
[2021-07-12] MEDS ORDERED: ATORVASTATIN 10 MG TAB PO SCH (21:00)
[2021-07-12] MEDS ORDERED: ENOXAPARIN INJ 40 MG/0.4 ML SYR SQ SCH (21:00)
[2021-07-13] MEDS ORDERED: INSULIN GLARGINE SOLOSTAR 100 UNITS/ML 3 ML PEN SC SCH (09:00)
--- NOTE | 2021-07-13 18:06 | Electrocardiogram Report ---
Test Reason : Blood Pressure : / mmHG Vent. Rate : 121 BPM Atrial Rate : 121 BPM P-R Int : 138 ms QRS Dur : 070 ms QT Int : 312 ms P-R-T Axes : 078 -04 063 degrees QTc Int : 443 ms Sinus tachycardia Possible Left atrial enlargement Low voltage QRS Septal infarct (cited on or before 16-FEB-2021) Abnormal ECG When compared with ECG of 16-FEB-2021 07:44, No significant change was found Confirmed by John Beck ([id number]) on 07/13/2021 6:06:07 PM Referred By: REFERRED SELF Confirmed By:John Beck
== END 2021-07-12 17:45 | disposition home or self-care (01) ==
LOC: 2N 18:34 → ED 18:34 → SUATTDRO 22:16 → 2N 07-12 00:50

== ENCOUNTER 2023-05-29 11:33 | Observation (INO) ==
[2023-05-29] MEDS ORDERED: ONDANSETRON INJ 2 MG/ML 2 ML VIAL IV STA ×2 (12:32→14:43)
[2023-05-29] MEDS: SODIUM CHLORIDE 0.9% 1,000 ML IV SCH ×2 (12:37→14:31)
[2023-05-29] MEDS ORDERED: METOCLOPRAMIDE HCL INJ 5 MG/ML 2 ML VIAL IV STA (12:40)
[2023-05-29] MEDS ORDERED: PANTOprazole 40 MG in SYRINGE 0 ML IV ONE (12:40)
--- NOTE | 2023-05-29 12:40 | Emergency Department Note ---
Impression & Plan DKA (diabetic ketoacidosis), Nausea & vomiting, Hematemesis, Leukocytosis, Metabolic acidosis ED Provider Note NAME: SAJAN FERGUSON AGE: 43 SEX: F : 1980 ARRIVES VIA: Ambulance INFORMANT: Patient ED PROVIDER(S): Kirk Aiken DO CHIEF COMPLAINT: abdominal pain HPI: Patient is a 43-year-old with a past medical history of GERD, substance abuse, type 1 diabetes who presents to the ER for nausea and vomiting. She notes symptoms started within the past 24 hours. She is unsure of what her sugars have been running yesterday and the day before she notes she has not been checking them. She denies any headache or change in vision. No chest pain or shortness of breath. She notes she does have some abdominal pain but only with vomiting. She notes this is typical for DKA. Denies any dysuria, urgency, or frequency. No alcohol abuse. ADDITIONAL HISTORY OBTAINED: Per HPI Chronic Medical/Social Conditions Affecting Care: Per HPI PAST MEDICAL HISTORY:See Below PAST SURGICAL HISTORY:See Below FAMILY HISTORY:See Below SOCIAL HISTORY:See Below HOME MEDICATIONS:See Below ALLERGIES:See Below VITALS:See Below PHYSICAL EXAMINATION: GENERAL: Sitting up in bed, alert, disheveled, vomiting coffee-ground emesis, ill-appearing EYE EXAM: normal conjunctiva. PERRL and EOM's grossly intact. OROPHARYNX: mucous membranes are dry LUNGS: Clear to auscultation. Normal chest wall mechanics HEART: Tachycardia, S1 normal and S2 normal ABDOMEN: abdomen soft, mild tenderness in the left mid abdomen, normo-active bowel sounds, no masses, no rebound or guarding. BACK: Back is symmetrical on inspection and there is no deformity, no midline tenderness, no CVA tenderness. SKIN: no rashes and no bruising UPPER EXTREMITIES: upper extremities are grossly normal. LOWER EXTREMITIES: No pitting edema. NEURO EXAM: Normal sensorium, cranial nerves II-XII grossly intact, normal speech, no gross weakness of arms, no gross weakness of legs. MEDICAL DECISION MAKING: Patient is a 43-year-old female who presents ER for above-stated complaint. IV was established blood work is obtained. Labs show mild leukocytosis of 14,000. No significant anemia. BMP with mild hyponatremia in the 130s. CO2 was slightly low at 19 with a gap of 23. Glucose were elevated at 500. LFTs bilirubin was unremarkable. Lipase was normal. UA was contaminated. was negative. Positive for amphetamines. COVID flu and RSV were negative. She was given 2 L normal saline as well as 1 L bolus of normal salt. She was given 20 mill equivalents of K and additional 1 L bag as well. She was placed on a insulin drip and given a bolus. She was discussed with the hospitalist and admitted for further workup for her DKA. Patient was also given a bolus of Protonix as she did have some coffee-ground emesis while in the ER. That improved significantly with the antiemetics. Consults/Care Managements Discussions: Per [facility] Triage Nursing notes reviewed. Limited review of prior medical records performed Vital Signs: reviewed and remarkable for tachy Differential diagnosis: Differential diagnoses includes but is not limited to gastritis, peptic ulcer disease, GERD, gallbladder disease, pancreatitis, small bowel obstruction, appendicitis, diverticulitis, hernia, urinary tract infection, torsion, [/ectopic (if female)], perforation, trauma, infectious. ER treatment provided: See below Diagnostics interpreted by me include EKG and cardiac monitoring as listed below: -Cardiac Monitoring: An order was placed for continuous cardiac monitoring. The monitor shows a rate of 125 with sinus rhythm. -ECG: none -Laboratory studies:Interpreted by me as stated above in MDM and shown below. Imaging studies: Xrays: As interpreted by me: Portable AP upright 1 view of the chest shows no focal CTs show: none Procedures:none Critical Care: I have personally spent 35 minutes of critical care time in the direct management of this patient. This includes bedside care, interpretation of diagnostic studies, and testing, discussion with consultants, patient, and family members, and other required patient management activities. This 35 minutes is in excess of all separately billable procedures. Past Med/Surg History Medical History (Updated 05/29/23 @ 16:24 by Kirk Aiken DO) Hyperglycemia Nausea & vomiting Tobacco abuse GERD (gastroesophageal reflux disease) Substance abuse Hypertension DKA, type 1 Mild acid reflux Environmental and seasonal allergies Asthma Tachycardia Migraine Diabetes type I Surgical History History of appendectomy History of Family History Other Family history non-contributory Social History Smoking Status: Current every day smoker Tobacco Type: Cigarettes Second Hand Exposure: No; Do You Dip or Chew Tobacco: No; Hx Alcohol Use: Yes Alcohol type: hard liquor Hx Substance Use: No Preferred Language: Kinyarwanda Communication Ability: Effective [facility] Assisted Living Required: No Beliefs That Will Affect Care: None Current Living Situation: Other Current Living Situation Comment: fiance and roommate Feels Safe at Home: Yes Assistive Devices: Denture - Upper, Denture - Lower and Glasses Allergies Allergies Allergy/AdvReac Type Severity Reaction Status Date / Time Penicillins Allergy Severe Throat Verified 05/29/23 15:13 swells shut Home Meds Home Medications Medication Instructions Recorded Confirmed aspirin 81 mg tablet,delayed 81 mg PO DAILY 02/16/21 07/11/21 release famotidine 20 mg tablet 20 mg PO DAILY PRN Acid Reflux 02/16/21 07/11/21 insulin glargine 100 unit/mL 0 unit subcut DAILY PRN BSG CONTROL 02/16/21 05/29/23 subcutaneous solution (Lantus U-100 Insulin) insulin lispro 100 unit/mL 0 unit continuous subcutaneous 02/16/21 05/29/23 subcutaneous solution infusion CONTINOUS albuterol sulfate 90 mcg/actuation 1 - 2 puff inhalation .Q4-6H PRN 05/29/23 05/29/23 aerosol inhaler wheezing/SOB Previous Rx's Medication Instructions Recorded blood sugar diagnostic (OneTouch #100 ea 07/13/21 Verio test strips) blood-glucose meter (OneTouch #1 ea 07/13/21 Verio Meter) lancets 33 gauge (OneTouch Delica #100 ea 07/13/21 Lancets) Results & Data (ED) Vital Signs Vital Signs - 24 hr 05/29/23 12:15 05/29/23 12:24 05/29/23 13:05 Temperature 36.9 C Temperature Source Temporal Artery Scan Pulse Rate 130 H 93 H Respiratory Rate 18 Respiratory Effort / Characteristics Non-Labored Spontaneous Respiratory Depth Normal Respiratory Pattern Regular Blood Pressure 139/85 Blood Pressure Mean 103 Blood Pressure Position Sitting Pulse Oximetry 98 100 Oxygen Delivery Method Room Air Room Air Sepsis Recent Fever Within 48 Hours No Sepsis New/Unexplained Change in Mental Status N/A Sepsis Action Taken by Nursing No Action Required Laboratory Data 05/29/23 12:58 05/29/23 12:58 Lab Results 05/29/23 05/29/23 05/29/23 Range/Units 12:19 12:58 13:05 WBC 14.84 H (4.8-10.8) K/ul RBC 4.84 (4.20-5.40) M/uL Hgb 13.8 (12.0-16.0) g/dl POC Hgb 15.0 (12.0-16.0) g/dl Hct 40.7 (37.0-47.0) % POC Hct 44 (37-47) % MCV 84.1 (80.0-100.0) fL MCH 28.5 (25.0-34.0) pg MCHC 33.9 (32.0-36.0) g/dL RDW Std Deviation 37.1 (36.4-46.3) fL RDW Coeff of Alisa 12.2 (11.5-14.5) % Plt Count 374 (130-400) K/uL MPV 11.0 (9.4-12.4) fL Immature Gran % (Auto) 0.5 % Neut % (Auto) 83.8 % Lymph % (Auto) 11.3 % [place] % (Auto) 3.6 % Eos % (Auto) 0.1 % Baso % (Auto) 0.7 % Neut # (Auto) 12.43 H (1.40-6.50) K/uL Lymph # (Auto) 1.68 (1.20-3.40) K/uL [place] # (Auto) 0.53 (0.11-0.59) K/uL Eos # (Auto) 0.02 (0.00-0.50) K/uL Baso # (Auto) 0.11 (0.00-0.20) K/uL Immature Gran # (Auto) 0.07 (0.01-0.20) K/uL ABG pH (7.35-7.45) ABG pCO2 (35-46) mmHg ABG pO2 (80-95) mmHg ABG HCO3 (19-24) mmol/L ABG O2 Saturation (90-95) % ABG Base Excess (-9-1.8) mEq/L Moo Test (Pos) VBG pH 7.21 L (7.36-7.41) VBG pCO2 48 (38-50) mmHg VBG pO2 36 mmHg VBG HCO3 19 mmol/L VBG O2 Saturation < 60.0 % VBG Base Excess -8.7 mEq/L Oxygen Given POC Sodium 132 L (135-144) mmol/L Sodium 134 L (136-145) mmol/L POC Potassium 4.8 (3.3-5.0) mmol/L Potassium 4.8 (3.5-5.1) mmol/L POC Chloride 96 L (101-112) mmol/L Chloride 92 L (98-107) mmol/L Carbon Dioxide 19 L (21-32) mmol/L POC Total CO2 20 L (24-31) mmol/L Anion Gap 23 H (3-11) POC Anion Gap 22.0 (16-25) mmol/L POC BUN 26 H (7-18) mg/dl BUN 28 H (6-23) mg/dl Creatinine 1.06 (0.6-1.2) mg/dl POC Creatinine 0.9 (0.6-1.3) mg/dl Est Cr Clr Drug Dosing Not Reportable Est GFR ( Amer) 75.0 ml/min Est GFR (Non-Af Amer) 64.7 ml/min BUN/Creatinine Ratio 26.4 H (10-20) Glucose 545 H* (70-99(Fasting)) mg/dl POC Glucose 526 H* (70-99) mg/dl POC Glucose (other) 541 H* (70-99) mg/dl Estimat Average Glucose 324 mg/dl Hemoglobin A1c 12.9 H (4.5-5.6) % Calcium 9.6 (8.6-10.3) mg/dl POC Ioniz Calcium Farhan 1.17 (1.12-1.32) mmol/l Phosphorus 5.5 H (2.5-4.9) mg/dl Magnesium 2.0 (1.7-2.4) mg/dl Total Bilirubin 0.5 (0.2-1.0) mg/dl AST 17 (13-39) U/L ALT 25 (7-52) U/L Alkaline Phosphatase 110 H (34-104) U/L Total Protein 6.7 (6.0-8.3) gm/dl Albumin 3.9 (3.4-5.0) gm/dl Globulin 2.8 (2.5-4.0) gm/dl Albumin/Globulin Ratio 1.4 (0.9-2) Lipase 19 (11-82) U/L Urine Color Urine Appearance (Clear) Urine pH (4.5-7.5) Ur Specific [place] (1.000-1.030) Urine Protein (Negative) Urine Glucose (UA) (Negative) Urine Ketones (Negative) Urine Blood (Negative) Urine Nitrite (Negative) Urine Bilirubin (Negative) Urine Urobilinogen (Negative) Ur Leukocyte Esterase (Negative) Urine WBC (Auto) (0-5) /hpf Urine RBC (Auto) (0-4) /hpf U Hyaline Cast (Auto) (0-5) /lpf U Epithel Cells (Auto) (0-5) /lpf Urine Bacteria (Auto) (Negative) POC Ur Test (NEG) Urine Opiates Screen (Neg) Ur Methadone, Qual (Neg) Urine Barbiturates (Neg) Ur Phencyclidine (PCP) (Neg) U Amphetamin/Meth Scrn (Neg) MDMA (Ecstasy) Screen (Neg) U Benzodiazepines Scrn (Neg) Ur Cocaine Metabolite (Neg) U Marijuana (THC) Screen (Neg) SARS-CoV-2 (PCR) (Negative) Influenza Type A (PCR) (Neg) Influenza Type B (PCR) (Neg) RSV (RT-PCR) (Neg) 05/29/23 05/29/23 05/29/23 Range/Units 14:26 14:34 Unknown WBC (4.8-10.8) K/ul RBC (4.20-5.40) M/uL Hgb (12.0-16.0) g/dl POC Hgb (12.0-16.0) g/dl Hct (37.0-47.0) % POC Hct (37-47) % MCV (80.0-100.0) fL MCH (25.0-34.0) pg MCHC (32.0-36.0) g/dL RDW Std Deviation (36.4-46.3) fL RDW Coeff of Alisa (11.5-14.5) % Plt Count (130-400) K/uL MPV (9.4-12.4) fL Immature Gran % (Auto) % Neut % (Auto) % Lymph % (Auto) % [place] % (Auto) % Eos % (Auto) % Baso % (Auto) % Neut # (Auto) (1.40-6.50) K/uL Lymph # (Auto) (1.20-3.40) K/uL [place] # (Auto) (0.11-0.59) K/uL Eos # (Auto) (0.00-0.50) K/uL Baso # (Auto) (0.00-0.20) K/uL Immature Gran # (Auto) (0.01-0.20) K/uL ABG pH 7.24 L (7.35-7.45) ABG pCO2 31 L (35-46) mmHg ABG pO2 95 (80-95) mmHg ABG HCO3 13 L (19-24) mmol/L ABG O2 Saturation 98.1 H (90-95) % ABG Base Excess -12.8 L (-9-1.8) mEq/L Moo Test Pos (Pos) VBG pH (7.36-7.41) VBG pCO2 (38-50) mmHg VBG pO2 mmHg VBG HCO3 mmol/L VBG O2 Saturation % VBG Base Excess mEq/L Oxygen Given ROOM AIR POC Sodium (135-144) mmol/L Sodium (136-145) mmol/L POC Potassium (3.3-5.0) mmol/L Potassium (3.5-5.1) mmol/L POC Chloride (101-112) mmol/L Chloride (98-107) mmol/L Carbon Dioxide (21-32) mmol/L POC Total CO2 (24-31) mmol/L Anion Gap (3-11) POC Anion Gap (16-25) mmol/L POC BUN (7-18) mg/dl BUN (6-23) mg/dl Creatinine (0.6-1.2) mg/dl POC Creatinine (0.6-1.3) mg/dl Est Cr Clr Drug Dosing Est GFR ( Amer) ml/min Est GFR (Non-Af Amer) ml/min BUN/Creatinine Ratio (10-20) Glucose (70-99(Fasting)) mg/dl POC Glucose (70-99) mg/dl POC Glucose (other) (70-99) mg/dl Estimat Average Glucose mg/dl Hemoglobin A1c (4.5-5.6) % Calcium (8.6-10.3) mg/dl POC Ioniz Calcium Farhan (1.12-1.32) mmol/l Phosphorus (2.5-4.9) mg/dl Magnesium (1.7-2.4) mg/dl Total Bilirubin (0.2-1.0) mg/dl AST (13-39) U/L ALT (7-52) U/L Alkaline Phosphatase (34-104) U/L Total Protein (6.0-8.3) gm/dl Albumin (3.4-5.0) gm/dl Globulin (2.5-4.0) gm/dl Albumin/Globulin Ratio (0.9-2) Lipase (11-82) U/L Urine Color Red Urine Appearance Cloudy A (Clear) Urine pH 5.0 (4.5-7.5) Ur Specific [place] 1.025 (1.000-1.030) Urine Protein 2+ H (Negative) Urine Glucose (UA) 3+ H (Negative) Urine Ketones 4+ H (Negative) Urine Blood 3+ H (Negative) Urine Nitrite Negative (Negative) Urine Bilirubin Negative (Negative) Urine Urobilinogen Negative (Negative) Ur Leukocyte Esterase Trace H (Negative) Urine WBC (Auto) 10-30 H (0-5) /hpf Urine RBC (Auto) >30 H (0-4) /hpf U Hyaline Cast (Auto) 1-5 (0-5) /lpf U Epithel Cells (Auto) >30 H (0-5) /lpf Urine Bacteria (Auto) Negative (Negative) POC Ur Test NEG (NEG) Urine Opiates Screen Neg (Neg) Ur Methadone, Qual Neg (Neg) Urine Barbiturates Neg (Neg) Ur Phencyclidine (PCP) Neg (Neg) U Amphetamin/Meth Scrn Pos H (Neg) MDMA (Ecstasy) Screen Neg (Neg) U Benzodiazepines Scrn Neg (Neg) Ur Cocaine Metabolite Neg (Neg) U Marijuana (THC) Screen Neg (Neg) SARS-CoV-2 (PCR) NEGATIVE (Negative) Influenza Type A (PCR) Negative (Neg) Influenza Type B (PCR) Negative (Neg) RSV (RT-PCR) Negative (Neg) Administered Medications Insulin Human Regular 250 (units/ Sodium Chloride) 250 mls @ 5.5 mls/hr IV .Q24H JEF; Protocol Stop: 06/28/23 13:29 Last Admin: 05/29/23 15:13 Dose: 5.5 unit/hr, 5.5 mls/hr Documented By: SINA Co-signed By: NADINE Parenteral Electrolytes (Plasma-Lyte A Ph 7.4) 1,000 mls @ 250 mls/hr IV .Q4H JEF Stop: 05/29/23 22:29 Last Admin: 05/29/23 15:12 Dose: 250 mls/hr Documented By: SINA Discontinued Medications Sodium Chloride (Nss) 1,000 mls @ 999 mls/hr IV .Q1H1M JEF Stop: 05/29/23 14:45 Last Admin: 05/29/23 14:31 Dose: 999 mls/hr Documented By: Infusion: 05/29/23 13:38 Dose: Infused Documented By: Admin: 05/29/23 12:37 Dose: 999 mls/hr Documented By: SUE Pantoprazole Sodium 40 mg/ (Syringe) 10 mls @ 5 mls/min IV NOW ONE Stop: 05/29/23 12:41 Last Admin: 05/29/23 14:22 Dose: 5 mls/min Documented By: SUE Potassium Chloride/Sodium Chloride (Normal Saline W/20 Meq Kcl) 20 meq in 1,000 mls @ 500 mls/hr IV .Q2H JEF; Protocol Stop: 05/29/23 15:29 Last Admin: 05/29/23 14:43 Dose: Not Given Documented By: SUE Parenteral Electrolytes (Plasma-Lyte A Ph 7.4) 1,000 mls @ 999 mls/hr IV .Q1H1M ONE Stop: 05/29/23 14:59 Last Admin: 05/29/23 14:22 Dose: 999 mls/hr Documented By: SUE Metoclopramide HCl (Metoclopramide Hcl Inj 5 Mg/Ml 2 Ml Vial) 10 mg IV NOW STA Stop: 05/29/23 12:41 Last Admin: 05/29/23 14:22 Dose: 10 mg Documented By: SUE Miscellaneous (Stat Iv Infusion Titration Per Protocol) 1 each N/A NOW STA Stop: 05/29/23 13:23 Last Admin: 05/29/23 15:12 Dose: 1 each Documented By: SINA Miscellaneous (Dka Goal Range 150-250 Mg/Dl) 1 each N/A ONE ONE Stop: 05/29/23 13:23 Last Admin: 05/29/23 15:12 Dose: 1 each Documented By: SINA Ondansetron HCl (Ondansetron Inj 2 Mg/Ml 2 Ml Vial) 4 mg IV NOW STA Stop: 05/29/23 12:33 Last Admin: 05/29/23 12:37 Dose: 4 mg Documented By: SUE Imaging Data Radiologist's Impression: Chest X-Ray 05/29/23 12:40 XR chest 1V portable HISTORY: 43 years-old Female dka acute shortness of breath COMPARISON: 02/16/2021 TECHNIQUE: AP view of the chest FINDINGS: Cardiomediastinal and hilar silhouettes are within normal limits. No pneumothorax, pleural effusion or airspace consolidation. The bones appear grossly intact. IMPRESSION: No acute process. ACT 112: Negative or not required by law. The above report was generated using voice recognition software. It may contain grammatical, syntax or spelling errors. Electronically signed by: Saud Zavaleta M.D. 05/29/2023 1:12 PM KUB X-Ray 05/29/23 14:14 KUB HISTORY: Acute generalized abdominal pain with nausea and vomiting vomiting; monitor for obstruction COMPARISON: None. FINDINGS: Moderate colonic fecal retention. Nonobstructive bowel gas pattern. No renal calculi. No ureteral calculi. No pneumoperitoneum or pneumatosis. No fracture. IMPRESSION: 1. Nonobstructive bowel gas pattern. 2. Moderate fecal retention. ACT 112: Negative or not required by law. The above report was generated using voice recognition software. It may contain grammatical, syntax or spelling errors. Electronically signed by: Saud Zavaleta M.D. 05/29/2023 2:34 PM Discharge Plan Visit Data Chief Complaint: Hyperglycemia ED Provider: Kirk Aiken Discharge Problem: DKA (diabetic ketoacidosis), Nausea & vomiting, Hematemesis, Leukocytosis, Metabolic acidosis Forms Stand Alone Forms: [employer]* Prescriptions Prescriptions: No Action (DME) OneTouch Verio test strips Strip See Rx Instructions .Route Qty: 100 0RF Rx Instructions: As directed (DME) blood-glucose meter [OneTouch Verio Meter] Misc See Rx Instructions .Route Qty: 1 0RF Rx Instructions: As directed (DME) lancets [OneTouch Delica Lancets] 33 gauge misc See Rx Instructions .Route Qty: 100 0RF Rx Instructions: As directed insulin glargine [Lantus U-100 Insulin] 100 unit/mL solution 0 unit SUBCUT DAILY PRN (Reason: BSG CONTROL) Rx Instructions: * back up insulin aspirin 81 mg tablet,delayed release (DR/EC) 81 mg PO DAILY Rx Instructions: LAST FILLED 01/03/21 FOR 90 TABS/90 DAYS. famotidine 20 mg tablet 20 mg PO DAILY PRN (Reason: Acid Reflux) insulin lispro 100 unit/mL solution 0 unit continuous subcutaneous infusion CONTINOUS Rx Instructions: INSULIN PUMP albuterol sulfate 90 mcg/actuation HFA aerosol inhaler 1 - 2 puff INHALATION .Q4-6H PRN (Reason: wheezing/SOB) Referrals Referrals: Ayleen Olivas PA-C [Primary Care Provider] - Discharge Problem: DKA (diabetic ketoacidosis) Qualifiers: Diabetes mellitus type: other specified (including VIANNEY) Diabetes mellitus complication detail: without coma Qualified Code(s): E13.10 - Other specified diabetes mellitus with ketoacidosis without coma Nausea & vomiting Qualifiers: Vomiting type: unspecified Qualified Code(s): R11.2 - Nausea with vomiting, unspecified Hematemesis Qualifiers: Nausea presence: unspecified Qualified Code(s): K92.0 - Hematemesis Leukocytosis Qualifiers: Leukocytosis type: unspecified Qualified Code(s): D72.829 - Elevated white blood cell count, unspecified
[2023-05-29 13:13] LABS: Base Excess VBG -8.7 mEq/L; HCO3 VBG 19 mmol/L; Oxygen Saturation VBG < 60.0 %; PCO2 VBG 48 mmHg (38-50); PO2 VBG 36 mmHg; pH VBG 7.21 (7.36-7.41)
--- NOTE | 2023-05-29 13:14 | XRay Report ---
XR chest 1V portable HISTORY: 43 years-old Female dka acute shortness of breath COMPARISON: 02/16/2021 TECHNIQUE: AP view of the chest FINDINGS: Cardiomediastinal and hilar silhouettes are within normal limits. No pneumothorax, pleural effusion o r airspace consolidation. The bones appear grossly intact. IMPRESSION: No acute process. ACT 112: Negative or not required by law. The above report was generated using voice recognition software. It may contain grammatical, syntax o r spelling errors. Electronically signed by: Saud Zavaleta M.D. 05/29/2023 1:12 PM
[2023-05-29 13:17] LABS: iSTAT Creatinine 0.9 mg/dl (0.6-1.3); iSTAT Ionized Calcium 1.17 mmol/l (1.12-1.32); iSTAT Potassium 4.8 mmol/L (3.3-5.0)
[2023-05-29] MEDS ORDERED: DEXTROSE 50% 50 ML SYRINGE IV PRN (13:22)
[2023-05-29] MEDS ORDERED: GLUCAGON FOR INJ 1 MG VIAL SQ PRN (13:22)
[2023-05-29] MEDS ORDERED: DKA GOAL RANGE 150-250 mg/dl ONE (13:22)
[2023-05-29] MEDS ORDERED: CARBOHYDRATES FOR HYPOGLYCEMIA PO PRN (13:22)
[2023-05-29] MEDS ORDERED: GLUCOSE 10 TAB/TUBE PO PRN (13:22)
[2023-05-29] MEDS ORDERED: STAT IV Infusion **Titration per Protocol STA (13:22)
[2023-05-29] MEDS ORDERED: GLUCOSE 40% GEL 15 GM TUBE PO PRN (13:22)
[2023-05-29 13:25] LABS: Basophils # (auto) 0.11 K/uL (0.00-0.20); Basophils % (auto) 0.7 %; Eosinophils # (auto) 0.02 K/uL (0.00-0.50); Eosinophils % (auto) 0.1 %; Hematocrit (blood only) 40.7 % (37.0-47.0); Hemoglobin 13.8 g/dl (12.0-16.0); Immature Granulocytes # (auto) 0.07 K/uL (0.01-0.20); Immature Granulocytes % (auto) 0.5 %; Lymphocytes # (auto) 1.68 K/uL (1.20-3.40); Lymphocytes % (auto) 11.3 %; Mean Corpuscular Hemoglobin 28.5 pg (25.0-34.0); Mean Corpuscular Hgb Conc 33.9 g/dL (32.0-36.0); Mean Corpuscular Volume 84.1 fL (80.0-100.0); Monocytes # (auto) 0.53 K/uL (0.11-0.59); Monocytes % (auto) 3.6 %; Neutrophils # (auto) 12.43 K/uL (1.40-6.50); Neutrophils % (auto) 83.8 %; Platelet Count 374 K/uL (130-400); RDW Coefficient of Variation 12.2 % (11.5-14.5); RDW Standard Deviation 37.1 fL (36.4-46.3); Red Blood Count 4.84 M/uL (4.20-5.40); White Blood Count 14.84 K/ul (4.8-10.8)
[2023-05-29] MEDS ORDERED: Patient's HEIGHT &/or WEIGHT Needed STA (13:25)
[2023-05-29] MEDS ORDERED: NSS + 20MEQ KCL 20 MEQ/1,000 ML BAG IV SCH (13:30)
[2023-05-29] MEDS ORDERED: INSULIN REGULAR 250 UNITS in SODIUM CHLORIDE 0.9% 247.5 ML IV SCH ×2 (13:30→14:00)
[2023-05-29 13:44] LABS: Alanine Aminotransferase 25 U/L (7-52); Albumin Globulin Ratio 1.4 (0.9-2); Albumin Level 3.9 gm/dl (3.4-5.0); Alkaline Phosphatase 110 U/L (34-104); Anion Gap 23 (3-11); Aspartate Aminotransferase 17 U/L (13-39); BUN Creatinine Ratio 26.4 (10-20); Bilirubin,Total 0.5 mg/dl (0.2-1.0); Blood Urea Nitrogen 28 mg/dl (6-23); Calcium 9.6 mg/dl (8.6-10.3); Carbon Dioxide 19 mmol/L (21-32); Chloride 92 mmol/L (98-107); Est GFR (Non-African American) 64.7 ml/min; Globulin 2.8 gm/dl (2.5-4.0); Glucose 545 mg/dl (70-99(Fasting)); Lipase 19 U/L (11-82); Potassium 4.8 mmol/L (3.5-5.1); Sodium 134 mmol/L (136-145); Total Protein 6.7 gm/dl (6.0-8.3)
[2023-05-29] MEDS ORDERED: PLASMA-LYTE A 1,000 ML IV ONE (13:59)
[2023-05-29 14:11] LABS: Estimated Average Glucose 324 mg/dl; Hemoglobin A1C 12.9 % (4.5-5.6)
[2023-05-29] MEDS ORDERED: PLASMA-LYTE A 1,000 ML IV SCH (14:30)
[2023-05-29 14:33] LABS: Base Excess ABG -12.8 mEq/L (-9-1.8); HCO3 ABG 13 mmol/L (19-24); Oxygen Saturation ABG 98.1 % (90-95); PCO2 ABG 31 mmHg (35-46); PO2 ABG 95 mmHg (80-95); pH ABG 7.24 (7.35-7.45)
[2023-05-29 14:34] LABS: Allen Test Pos (Pos)
[2023-05-29 14:35] LABS: Phosphorus 5.5 mg/dl (2.5-4.9)
--- NOTE | 2023-05-29 14:35 | XRay Report ---
KUB HISTORY: Acute generalized abdominal pain with nausea and vomiting vomiting; monitor for obstruction COMPARISON: None. FINDINGS: Moderate colonic fecal retention. Nonobstructive bowel gas pattern. No renal calculi. No u reteral calculi. No pneumoperitoneum or pneumatosis. No fracture. IMPRESSION: 1. Nonobstructive bowel gas pattern. 2. Moderate fecal retention. ACT 112: Negative or not required by law. The above report was generated using voice recognition software. It may contain grammatical, syntax o r spelling errors. Electronically signed by: Saud Zavaleta M.D. 05/29/2023 2:34 PM
--- NOTE | 2023-05-29 14:49 | History & Physical Report ---
Date of Service May 29, 2023 Assessment & Plan (1) DKA (diabetic ketoacidoses): Plan: -Admit to the ICU -Currently hemodynamically stable and stable on RA -Presented to the ED with a chief complaint of hyperglycemia and generalized illness -Found to have an initial BSG in the 500's with AG of 23 and bicarb of 19 -ABG showing a pH of 7.2, pCO2 of 31, pO2 of 95, and bicarb of 13 -Spoke with the ICU, appreciate their help, accepted for the ICU at this time -Given 2L NSS, 20 meq IV KCL, 4mg IV zofran, 40 mg IV pantoprazole in the ED -Potassium stable at 4.8 -Will continue insulin drip -Start LR at 250 mL/HR x 2 bags for now -When BSG falls below 250 should convert IV fluids to D5W/1/2 NSS with 20 meq KCL -Monitor repeat BNP and blood gas q4h for now -Will remove insulin pump for now. Patient would benefit from agricultural extension educator prior to discharge as it does not appear she is confident using her insulin pump at this time -Will FU on UA and KUB -Hold chemical DVT PPX for now with possible upper GI bleed -NPO for now (2) Nausea & vomiting: Plan: -Patient with recurrent nausea and vomiting since this morning -Patient denies abd pain -Likely due to DKA but cannot rule out ileus or SBO at this time -Will obtain stat KUB for further evaluation -If needed, can obtain CT of the abd/pelvis when she is more stable -Already had a dose of zofran and reglan without relief -Will continue with zofran now (3) Hematemesis: Plan: -Patient started to have multiple episodes of dark/coffee ground emesis on initial evaluation -Patient has a hx of GERD and is on a daily Aspirin, and smokes 1PPD of cigarettes -Unsure at this point if she could have an ulcer or if this is due to recurrent emesis -Will be receiving 40 mg IV pantoprazole in the ED shortly, will continue BID IV dosing for now -Will place GI consult for further evaluation (4) Hypertension: Plan: -Currently stable -Hold oral antihypertensive for now with nausea/vomiting -Can use IV antihypertensives if needed (5) Tobacco abuse: Plan: -Continue to stress cessation -PRN nicotine patches ordered (6) GERD (gastroesophageal reflux disease): Plan: -Continue BID IV pantoprazole until acute GI bleed is ruled out (7) Asthma: Plan: -Currently stable on RA -Continue prn albuterol -Incentive spirometry Plan The patient was discussed with Dr. Schulte at the time of the admission History of Present Illness Chief Complaint: Hyperglycemia Primary Care Provider: Ayleen Pelayo is a 43 y/o F w/ PMHx of DM1, HTN, tobacco use disorder, asthma, GERD, migraines, and multiple prior admissions for DKA who presented to the [facility] ED on 05/29 with a chief complaint of feeling generally ill and hyperglycemia. She was noted to be tachycardic with an hr of 130 but otherwise stable. Labs were significant for a leukocytosis of 14 with neutrophil predominance of 12, VBG pH of 7.21 with pCO2 of 48 and pO2 of 36, Cr of 1.0 (baseline is near 0.6), BUN of 28, AG of 23 with bicarb of 19, glucose of 541, corrected sodium of 139. Chest xray was negative for acute findings. Prior to admission the patient was given 1L NSS, 40 mg IV pantoprazole, 20 meq IV KCL, and started on an insulin drip. At the time of the xam the patient was lying in bed in no acute distress, she does look ill. She states that she woke this am and felt generally ill. She started to develop nausea and vomiting and noticed that her blood glucose was in the 500's. She was recently started on an insulin pump and is unsure if it has been functioning properly. She was not checking her blood sugars regularly over the past week. While evaluating the patient she started to have dark emesis. She denies recent fever chills, chest pain, SOB, aspiration, abd pain, dysuria, hematuria, melena, LE swelling and recent trauma. She does smoke 1 PPD and denies alcohol or drug use. When asked, she denies recently using ibuprofen, alieve, motrin, or other NSAID's. She is on a daily baby aspirin at home. She is a full code and would want her fiance to make medical decisions for her if she cannot make them herself. Please refer to Dr. Schulte's attestation for any changes to the treatment plan Allergies Allergy/AdvReac Type Severity Reaction Status Date / Time Penicillins Allergy Severe Throat Verified 05/29/23 15:13 swells shut Home Medications Medication Instructions Recorded Confirmed Type aspirin 81 mg tablet,delayed 81 mg PO DAILY 02/16/21 07/11/21 History release famotidine 20 mg tablet 20 mg PO DAILY PRN Acid Reflux 02/16/21 07/11/21 History insulin glargine 100 unit/mL 0 unit subcut DAILY PRN BSG CONTROL 02/16/21 05/29/23 History subcutaneous solution (Lantus U-100 Insulin) insulin lispro 100 unit/mL 0 unit continuous subcutaneous 02/16/21 05/29/23 History subcutaneous solution infusion CONTINOUS blood sugar diagnostic (OneTouch #100 ea 07/13/21 Rx Verio test strips) blood-glucose meter (OneTouch #1 ea 07/13/21 Rx Verio Meter) lancets 33 gauge (OneTouch Delica #100 ea 07/13/21 Rx Lancets) albuterol sulfate 90 mcg/actuation 1 - 2 puff inhalation .Q4-6H PRN 05/29/23 05/29/23 History aerosol inhaler wheezing/SOB Past Med/Surg History Medical History (Updated 05/29/23 @ 18:07 by Arjun Jones MD, [facility]) Hyperglycemia Nausea & vomiting Tobacco abuse GERD (gastroesophageal reflux disease) Substance abuse Hypertension DKA, type 1 Mild acid reflux Environmental and seasonal allergies Asthma Tachycardia Migraine Diabetes type I Surgical History History of appendectomy History of Family History Other Family history non-contributory Social History Smoking Status: Current every day smoker Tobacco Type: Cigarettes Cigarettes Per Day: 20; Second Hand Exposure: No; Do You Dip or Chew Tobacco: No; Hx Alcohol Use: No Hx Substance Use: No Preferred Language: Macedonian Communication Ability: Effective Underwater Hunter Trapper Required: No Beliefs That Will Affect Care: None Current Living Situation: Family Current Living Situation Comment: fiance and roommate Feels Safe at Home: Yes Assistive Devices: Glasses Physical Exam Physical Exam: Physical Exam: General: In no acute distress, stated age, malnourished, poor hygiene, ill appearing HEENT: Normocephalic, atraumatic, no scleral icterus, pupils around round, symmetrical, and reactive to light, poor dentition, dry mucus membranes, trachea midline, no thyromegaly Chest/Pulm: No respiratory distress, symmetrical chest expansion, scattered expiratory wheezing Cardiac: tachycardic rate, regular rhythm, no murmurs noted Abdomen: Negative for ascites and bruising, normoactive bowel sounds, soft, non-tender to palpation throughout Musculoskeletal: Symmetrical and without signs of acute trauma, upper and lower extremities with full ROM, no atrophy, spasticity, or flaccidity Extremities: Radial, dorsalis pedis, and posterior tibial pulses are intact and symmetrical, no edema noted in the BL LE's Skin: Warm, dry, no rashes , lesions, or scars noted Neuro: Alert and oriented to person, place, month, year, and president, no focal defects, no tremors noted Psych: No acute distress, calm and cooperative during the exam Results & Data Results & Data Vital Signs (Past 12 Hours) Vital Signs Temp Pulse Resp BP Pulse Ox O2 Del Method 05/29/23 13:05 93 H 05/29/23 12:15 36.9 C 130 H 18 139/85 98 Room Air Laboratory Results Abnormal lab results 05/29/23 05/29/23 05/29/23 Range/Units 12:19 12:58 13:05 WBC 14.84 H (4.8-10.8) K/ul Neut # (Auto) 12.43 H (1.40-6.50) K/uL VBG pH 7.21 L (7.36-7.41) POC Sodium 132 L (135-144) mmol/L Sodium 134 L (136-145) mmol/L POC Chloride 96 L (101-112) mmol/L Chloride 92 L (98-107) mmol/L Carbon Dioxide 19 L (21-32) mmol/L POC Total CO2 20 L (24-31) mmol/L Anion Gap 23 H (3-11) POC BUN 26 H (7-18) mg/dl BUN 28 H (6-23) mg/dl BUN/Creatinine Ratio 26.4 H (10-20) Glucose 545 H* (70-99(Fasting)) mg/dl POC Glucose 526 H* (70-99) mg/dl POC Glucose (other) 541 H* (70-99) mg/dl Hemoglobin A1c 12.9 H (4.5-5.6) % Alkaline Phosphatase 110 H (34-104) U/L ECG Additional Comments: Will obtain at the time of the admission Code Status & VTE Plan Code Status Full code VTE Prophylaxis Plan VTE Prophylaxis will be ordered: Yes Supervising Physician Co-Signing Physician Notes Attending addendum: I have physically seen this patient, have supervised the NERIS's activities, and agree with the H&P unless as otherwise noted. Assessment and Plan: Diabetic ketoacidosis- Admit to ICU Continue insulin drip begun in the ED Blood sugar initially 545 with anion gap of 23 and WBC 14.84 Continue IV fluids as noted per protocol No obvious signs of infection, however, patient does not appear to be adequately taking care of herself Will get social worker assistant involved Zofran 4 mg IV every 6 hours as needed Pantoprazole 40 mg IV daily Nausea and vomiting- Most likely secondary to DKA, however, will get a KUB to assess for possible ileus or SBO If persistent symptoms, will get CT abdomen and pelvis Coffee-ground emesis- Stop daily aspirin May be secondary to stress of vomiting Smoking cessation encouraged, presently 1 pack/day Protonix 40 mg IV twice daily No history of alcohol abuse Consult to GI if persistent Check serial H&H's Continue n.p.o. Tobacco abuse- Counseling cessation Asthma- Continue albuterol as needed PG Care Time/CCT Total # of Minutes Spent Total Time Spent with Patient: Total time spent is greater than 50% in coordination of care (as documented) at patient's floor/unit and/or counseling patient: 45 minutes C[place] [id number] INT INP/OBS CARE 3/75MIN Patient Type Established Medical Decision Making High Complexity Diagnoses Diabetic ketoacidosis without coma associated with type 1 diabetes mellitus E10.10 Diabetes mellitus complication detail: without coma Diabetes mellitus type: type 1 Nausea & vomiting R11.2 Vomiting type: unspecified Hematemesis K92.0 Hypertension I10 Tobacco abuse Z72.0 GERD (gastroesophageal reflux disease) K21.9 Asthma J45.909 (1) DKA (diabetic ketoacidoses) Diabetes mellitus complication detail: without coma Diabetes mellitus type: type 1 Qualified Code(s): E10.10 - Type 1 diabetes mellitus with ketoacidosis without coma (2) Nausea & vomiting Vomiting type: unspecified Qualified Code(s): R11.2 - Nausea with vomiting, unspecified
[2023-05-29 15:07] LABS: Bacteria Urine Automated Negative (Negative); Bilirubin Urine Negative (Negative); Blood Urine 3+ (Negative); Color Urine Red; Epithelial Cell Urine Auto >30 /lpf (0-5); Glucose Urine UA 3+ (Negative); Ketones Urine 4+ (Negative); Leukocyte Esterase Urine Trace (Negative); Nitrite Urine Negative (Negative); Protein Urine 2+ (Negative); RBC Urine Automated >30 /hpf (0-4); Specific Gravity Urine 1.025 (1.000-1.030); Urobilinogen Urine Negative (Negative)
[2023-05-29 15:09] LABS: Appearance Urine Cloudy (Clear)
[2023-05-29 15:21] LABS: Amphetamines+Metham, Urine Pos (Neg); Barbiturates, Urine Neg (Neg); Benzodiazepine, Urine Neg (Neg); Cocaine, Urine Neg (Neg); MDMA (Ecstacy), Urine Neg (Neg); Marijuana, Urine Neg (Neg); Methadone, Urine Neg (Neg); Opiate, Urine Neg (Neg); Phencyclidine, Urine Neg (Neg)
[2023-05-29 15:28] LABS: Influenza A virus by PCR Negative (Neg); Influenza B virus by PCR Negative (Neg); RSV by PCR Negative (Neg); SARS CoV2 RNA(COVID-19) Ceph NEGATIVE (Negative)
[2023-05-29] MEDS ORDERED: ONDANSETRON INJ 2 MG/ML 2 ML VIAL IV PRN (17:03)
[2023-05-29] MEDS ORDERED: ICU Protocol for HYPERglycemia SCH (17:21)
[2023-05-29] MEDS: D5W AND 1/2NSS + 20MEQ KCL 20 MEQ/1,000 ML BAG IV SCH ×2 (17:38→23:01)
[2023-05-29] MEDS ORDERED: PLASMA-LYTE A 500 ML IV ONE (17:43)
[2023-05-29] MEDS ORDERED: INSULIN ASPART PER UNIT CHARGE SC SCH ×2 (18:00→21:00)
--- NOTE | 2023-05-29 18:05 | Critical Care Consultation ---
Date of Consultation May 29, 2023 Assessment & Plan (1) Metabolic acidosis: (2) Leukocytosis: (3) DKA (diabetic ketoacidosis): (4) Nausea & vomiting: (5) Tobacco abuse: (6) GERD (gastroesophageal reflux disease): (7) SUZY (acute kidney injury): (8) High anion gap metabolic acidosis: Plan Reason Critically Ill: 43-year-old female past medical history of type 1 diabetes, hypertension, GERD, migraine presented to hospital with generalized weakness. Was found to be in DKA. Neuro - [facility] ICU: Negative --UDS is positive for amphetamines Although the patient is denying using any illicit drugs Cardiac - -- Tachycardia Likely secondary to dehydration from DKA and acidosis Continue to monitor Respiratory - -- Current smoker Approximately [id number] smoking history Reports of quitting Patient in depth GI - -- Hematemesis Likely from retching and vomiting Protonix twice daily RENAL/LYTES - -- HAGMA Delta-delta: Greater than 2, mixed acidosis plus alkalosis High anion gap is most likely from DKA/ketoacidosis, alkalosis is likely from nausea and vomiting ABG pH 7.24 Monitor -- SUZY Follow-up urine lites Monitor BUN/creatinine Avoid nephrotoxic medications Strict ins and outs ENDO - -- DKA Continue with insulin drip until anion gap closes Decreasing blood glucose no more than 100 in an hour Replace potassium IV when potassium level between 3.3-5.3 BMP every 4 hours Continue with IV fluids HbA1c 12.9 HEME - Monitor H&H ID - -- No clear signs of infection Urine is clean Chest x-ray clean --Prophylaxis VTE: IPC given hematemesis GI: Pantoprazole Lines: Peripheral Diet: N.p.o. Plan: Patient got total 2 L of IV fluid bolus. I will give another final mL of Plasma-Lyte Continue with insulin drip, change IV fluids to D5 half NS once the sugar is less than 200. Do not decrease glucose > 100 Patient had mild hematemesis. Monitor H&H Protonix twice daily. Denies any significant alcohol abuse Continue with BMP every 4 hours. Keep potassium between 3.3-5.3 I have personally spent 55 minutes of critical care time in the direct management of this patient. This is a life/limb threatening event. This includes time spent evaluating patient, direct bedside care, chart review, placing orders, interpretation of diagnostic studies, discussion with consultants, patient, and family members, as well as other required patient management activities. This time is exclusive of all separately billable procedures, and teaching time and separate from and in addition to any other critical care service time. History of Present Illness Attending Physician: Ji Schulte MD History of Present Illness 43-year-old female presented to the hospital for generalized weakness and hypoglycemia Past medical history: Diabetes type 1, hypertension, GERD, migraine Patient was transferred to the ICU for management of DKA At the time of examination in the ICU patient was resting comfortably Her heart rate was in the low 100s, respirate was in the high teens. She was not any respiratory distress Denies any abdominal pain, no nausea, no vomiting No fever or chills No dysuria, no diarrhea. Ran out of her insulin pump supplies and that is why she was not able to get insulin. Social history: Approximately [id number] smoking history, currently smoking a pack a day. Denies any illicit drug use No history of lung cancer in the family Allergies Allergy/AdvReac Type Severity Reaction Status Date / Time Penicillins Allergy Severe Throat Verified 05/29/23 15:13 swells shut Home Medications Medication Instructions Recorded Confirmed Type aspirin 81 mg tablet,delayed 81 mg PO DAILY 02/16/21 07/11/21 History release famotidine 20 mg tablet 20 mg PO DAILY PRN Acid Reflux 02/16/21 07/11/21 History insulin glargine 100 unit/mL 0 unit subcut DAILY PRN BSG CONTROL 02/16/21 05/29/23 History subcutaneous solution (Lantus U-100 Insulin) insulin lispro 100 unit/mL 0 unit continuous subcutaneous 02/16/21 05/29/23 History subcutaneous solution infusion CONTINOUS blood sugar diagnostic (OneTouch #100 ea 07/13/21 Rx Verio test strips) blood-glucose meter (OneTouch #1 ea 07/13/21 Rx Verio Meter) lancets 33 gauge (OneTouch Delica #100 ea 07/13/21 Rx Lancets) albuterol sulfate 90 mcg/actuation 1 - 2 puff inhalation .Q4-6H PRN 05/29/23 05/29/23 History aerosol inhaler wheezing/SOB Patient History Medical History (Updated 05/29/23 @ 18:07 by Arjun Jones MD, [facility]) Hyperglycemia Nausea & vomiting Tobacco abuse GERD (gastroesophageal reflux disease) Substance abuse Hypertension DKA, type 1 Mild acid reflux Environmental and seasonal allergies Asthma Tachycardia Migraine Diabetes type I Surgical History History of appendectomy History of Family History Other Family history non-contributory Social History Smoking Status: Current every day smoker Tobacco Type: Cigarettes Cigarettes Per Day: 20; Second Hand Exposure: No; Do You Dip or Chew Tobacco: No; Tobacco Cessation Education Requested by Patient: No Hx Alcohol Use: No Hx Substance Use: No Preferred Language: Divehi Communication Ability: Effective Contract Associate Required: No Beliefs That Will Affect Care: None Current Living Situation: Family Current Living Situation Comment: fiance and roommate Other Information That Helps Us Care for You: No Feels Safe at Home: Yes Safety Concerns: Feels Safe At This Time Assistive Devices: Glasses Review of Systems 2 Review of Systems: All systems reviewed & are unremarkable except as noted in HPI & below Physical Exam 2 Physical Exam: Constitutional: No acute distress HEENT: EOMI, PERRLA Respiratory system: Good air entry bilaterally, no wheeze, no rhonchi, no crackles CVS: S1-S2 positive, no murmurs or gallops, tachycardia Abdomen: Soft, nontender, nondistended, positive bowel sounds x4 Extremities: +2 pulses bilaterally radialis/ dorsalis pedis, no cyanosis, no edema Neuro: Awake alert oriented x3 Psych: Normal mood and affect G/U: No Cardenas Skin: no rashes, warm and dry Lymphatic: no cervical or axillary lymphadenopathy Results & Data Results & Data Vital Signs (Past 12 Hours) Vital Signs Temp Pulse Pulse Resp BP BP Pulse Ox 05/29/23 17:47 05/29/23 17:32 05/29/23 17:32 36.4 C L 106 H 18 149/92 H 100 05/29/23 17:29 113 H 05/29/23 17:26 36.7 C 115 H 22 149/92 H 100 05/29/23 16:46 117 H 25 H 117/92 99 05/29/23 16:40 114 H 15 05/29/23 16:30 117 H 19 05/29/23 16:20 112 H 16 05/29/23 16:10 111 H 14 05/29/23 16:00 112 H 15 05/29/23 15:50 113 H 18 05/29/23 15:47 112 H 25 H 05/29/23 15:30 119 H 15 99 05/29/23 15:20 114 H 19 99 05/29/23 15:15 113 H 21 100 05/29/23 14:50 113 H 30 H 98 05/29/23 14:40 113 H 28 H 100 05/29/23 14:30 196/105 H 05/29/23 14:30 116 H 18 98 05/29/23 14:20 116 H 22 99 05/29/23 14:15 195/100 H 05/29/23 14:15 114 H 21 98 05/29/23 14:10 112 H 21 98 05/29/23 14:00 181/99 H 05/29/23 14:00 115 H 22 100 05/29/23 13:50 116 H 24 99 05/29/23 13:45 113 H 17 100 05/29/23 13:45 161/85 H 05/29/23 13:40 112 H 18 100 05/29/23 13:30 183/97 H 05/29/23 13:30 114 H 20 98 05/29/23 13:20 112 H 17 100 05/29/23 13:16 112 H 18 100 05/29/23 13:16 165/124 H 05/29/23 13:10 110 H 21 99 05/29/23 13:05 93 H 05/29/23 13:00 124 H 19 99 05/29/23 13:00 178/112 H 05/29/23 12:59 63 16 100 05/29/23 12:24 100 05/29/23 12:15 36.9 C 130 H 18 139/85 98 Pulse Ox O2 Del Method O2 Del Method 05/29/23 17:47 Room Air 05/29/23 17:32 100 Room Air 05/29/23 17:32 Room Air 05/29/23 17:29 05/29/23 17:26 Room Air 05/29/23 16:46 Room Air 05/29/23 16:40 05/29/23 16:30 05/29/23 16:20 05/29/23 16:10 05/29/23 16:00 05/29/23 15:50 05/29/23 15:47 05/29/23 15:30 05/29/23 15:20 05/29/23 15:15 05/29/23 14:50 05/29/23 14:40 05/29/23 14:30 05/29/23 14:30 05/29/23 14:20 05/29/23 14:15 05/29/23 14:15 05/29/23 14:10 05/29/23 14:00 05/29/23 14:00 05/29/23 13:50 05/29/23 13:45 05/29/23 13:45 05/29/23 13:40 05/29/23 13:30 05/29/23 13:30 05/29/23 13:20 05/29/23 13:16 05/29/23 13:16 05/29/23 13:10 05/29/23 13:05 05/29/23 13:00 05/29/23 13:00 05/29/23 12:59 05/29/23 12:24 Room Air 05/29/23 12:15 Room Air Laboratory Results 05/29/23 12:58 05/29/23 12:58 Coding Level of Care Code 06763 CRITICAL CARE 1ST 30-74M Diagnoses Metabolic acidosis E87.20 Leukocytosis D72.829 Leukocytosis type: unspecified DKA (diabetic ketoacidosis) E13.10 Diabetes mellitus complication detail: without coma Diabetes mellitus type: other specified (including VIANNEY) Nausea & vomiting R11.2 Vomiting type: unspecified Tobacco abuse Z72.0 GERD (gastroesophageal reflux disease) K21.9 SUZY (acute kidney injury) N17.9 High anion gap metabolic acidosis E87.29 (2) Leukocytosis Leukocytosis type: unspecified Qualified Code(s): D72.829 - Elevated white blood cell count, unspecified (3) DKA (diabetic ketoacidosis) Diabetes mellitus complication detail: without coma Diabetes mellitus type: o ther specified (including VIANNEY) Qualified Code(s): E13.10 - Other specified diabetes mellitus with ketoacidosis without coma (4) Nausea & vomiting Vomiting type: unspecified Qualified Code(s): R11.2 - Nausea with vomiting, unspecified
[2023-05-29 18:42] LABS: Albumin Globulin Ratio 1.4 (0.9-2); Albumin Level 3.9 gm/dl (3.4-5.0); BUN Creatinine Ratio 26.5 (10-20); Bilirubin,Total 0.3 mg/dl (0.2-1.0); Creatinine Clr Calc Pharmacy 76.2 ml/min; Est GFR (African American) 100.8 ml/min; Globulin 2.8 gm/dl (2.5-4.0); Phosphorus 3.4 mg/dl (2.5-4.9); Potassium 4.6 mmol/L (3.5-5.1); Total Protein 6.7 gm/dl (6.0-8.3)
[2023-05-29] MEDS ORDERED: HEPARIN SOD 5,000 UNIT/0.5 ML VIAL SQ SCH (21:00)
[2023-05-29] MEDS ORDERED: PANTOprazole 40 MG in SYRINGE 0 ML IV SCH (21:00)
[2023-05-29 21:19] LABS: Appearance Urine Clear (Clear); Bacteria Urine Automated Negative (Negative); Bilirubin Urine Negative (Negative); Blood Urine 3+ (Negative); Color Urine Red; Epithelial Cell Urine Auto >30 /lpf (0-5); Glucose Urine UA 3+ (Negative); Ketones Urine 4+ (Negative); Leukocyte Esterase Urine Negative (Negative); Nitrite Urine Negative (Negative); Protein Urine 2+ (Negative); Specific Gravity Urine 1.022 (1.000-1.030); Urobilinogen Urine Negative (Negative)
[2023-05-29 21:38] LABS: Potassium Random Urine 33.4 mmol/L
[2023-05-29 22:14] LABS: Hematocrit (blood only) 33.8 % (37.0-47.0); Hemoglobin 11.6 g/dl (12.0-16.0)
[2023-05-29 22:33] LABS: BUN Creatinine Ratio 23.4 (10-20); Calcium 7.2 mg/dl (8.6-10.3); Creatinine Clr Calc Pharmacy 82.2 ml/min; Est GFR (African American) 110.4 ml/min; Est GFR (Non-African American) 95.2 ml/min; Phosphorus 2.1 mg/dl (2.5-4.9); Potassium 3.8 mmol/L (3.5-5.1)
--- NOTE | 2023-05-30 00:44 | Communication Note ---
Date of Service: May 30, 2023 Patient under ICU care. Wishes to leave AMA. Had already spoken to ICU provider regarding this. She appears to have capacity and understands risks of leaving AMA including possible . Advised patient to stay well hydrated and take all her home meds including her insulin pump. She should at the least f/u with her PCP. AMA paper work signed. Resident Activity Tracking Resident Involvement: Resident Care Provided Care Provided: [facility] Medicine
[2023-06-03 10:53] LABS: Amphetamine Urine, Confirm 1808 ng/mL (<250); Methamphetamine, Ur Confirm 9617 ng/mL (<250)
[2023-06-03 13:12] LABS: Uric Acid, Random Urine 11 mg/dL
== END 2023-05-30 00:41 | disposition left against medical advice (07) | DRG 638 ==
LOC: ED 11:33 → INTOOBSV 14:58 → 1E 14:58

== ENCOUNTER 2023-07-03 15:10 | Inpatient (IN) ==
[2023-07-03] MEDS: SODIUM CHLORIDE 0.9% 1,000 ML IV SCH (15:23)
[2023-07-03] MEDS: CALCIUM GLUCONATE 1,000 MG/60 ML BAG IV STA (15:23)
[2023-07-03] MEDS ORDERED: PHARMACY GLYCEMIC MGMT CONSULT PRN (15:26)
[2023-07-03 15:37] LABS: iSTAT Blood Urea Nitrogen 93 mg/dl (7-18); iSTAT Carbon Dioxide 7 mmol/L (24-31); iSTAT Chloride 86 mmol/L (101-112); iSTAT Creatinine 3.1 mg/dl (0.6-1.3); iSTAT Glucose > 700 mg/dl (70-99); iSTAT Hematocrit 41 % (37-47); iSTAT Hemoglobin 13.9 g/dl (12.0-16.0); iSTAT Ionized Calcium 0.93 mmol/l (1.12-1.32); iSTAT Potassium 6.5 mmol/L (3.3-5.0); iSTAT Sodium 116 mmol/L (135-144)
--- NOTE | 2023-07-03 15:51 | XRay Report ---
XR chest 1V portable HISTORY: 43 years-old Female SOB acute shortness of breath COMPARISON: 05/29/2023 TECHNIQUE: AP view of the chest FINDINGS: Cardiomediastinal and hilar silhouettes are within normal limits. No pneumothorax, pleural effusion o r airspace consolidation. The bones appear grossly intact. IMPRESSION: No acute process. ACT 112: Negative or not required by law. The above report was generated using voice recognition software. It may contain grammatical, syntax o r spelling errors. Electronically signed by: Saud Zavaleta M.D. 07/03/2023 3:49 PM
[2023-07-03 15:52] LABS: Hematocrit (blood only) 39.8 % (37.0-47.0); Hemoglobin 12.3 g/dl (12.0-16.0); Mean Corpuscular Hemoglobin 28.7 pg (25.0-34.0); Mean Corpuscular Hgb Conc 30.9 g/dL (32.0-36.0); Mean Platelet Volume 11.3 fL (9.4-12.4); Platelet Count 422 K/uL (130-400); RDW Coefficient of Variation 13.2 % (11.5-14.5); RDW Standard Deviation 44.6 fL (36.4-46.3); Red Blood Count 4.28 M/uL (4.20-5.40); White Blood Count 26.79 K/ul (4.8-10.8)
[2023-07-03 15:55] LABS: Appearance Urine Clear (Clear); Bacteria Urine Automated Negative (Negative); Bilirubin Urine Negative (Negative); Blood Urine 2+ (Negative); Color Urine Yellow; Epithelial Cell Urine Auto 20-30 /lpf (0-5); Glucose Urine UA 3+ (Negative); Ketones Urine 2+ (Negative); Leukocyte Esterase Urine Negative (Negative); Nitrite Urine Negative (Negative); Protein Urine 2+ (Negative); RBC Urine Automated 0-4 /hpf (0-4); Specific Gravity Urine 1.021 (1.000-1.030); Urobilinogen Urine Negative (Negative)
[2023-07-03 16:07] LABS: Pregnancy Test, Serum Negative (Negative)
[2023-07-03 16:13] LABS: Basophils # (auto) 0.12 K/uL (0.00-0.20); Basophils % (auto) 0.4 %; Echinocytes 2+; Eosinophils # (auto) 0.01 K/uL (0.00-0.50); Immature Granulocytes # (auto) 0.41 K/uL (0.01-0.20); Immature Granulocytes % (auto) 1.5 %; Lymphocytes # (auto) 2.22 K/uL (1.20-3.40); Lymphocytes % (auto) 8.3 %; Monocytes # (auto) 1.71 K/uL (0.11-0.59); Monocytes % (auto) 6.4 %; Neutrophils # (auto) 22.32 K/uL (1.40-6.50); Neutrophils % (auto) 83.4 %
[2023-07-03] MEDS: DROPERIDOL 5 MG/2 ML VIAL IV STA (16:14)
--- NOTE | 2023-07-03 16:26 | CT Scan Report ---
CT head/brain wo con CLINICAL HISTORY: 43 years-old Female with unresponsive. Acutely altered mental status. TECHNIQUE: Multiple axial CT images of the head were obtained without contrast. A dose lowering tech nique was utilized adhering to the principles of ALARA. CT DOSE: 547.75 mGy.cm COMPARISON: 05/01/2019. FINDINGS: No acute intracranial hemorrhage, midline shift, intracranial mass, hydrocephalus, territorial ischem ia or abnormal extra-axial collection. Limited exam secondary to positioning and motion. The calvarium is intact. There are a few partially calcified subcentimeter subcutaneous nodules in th e occipital scalp. The paranasal sinuses, mastoid air cells, and middle ear cavities are clear. IMPRESSION: No acute intracranial abnormality identified. ACT 112: Negative or not required by law. The above report was generated using voice recognition software. It may contain grammatical, syntax o r spelling errors. Electronically signed by: Saud Zavaleta M.D. 07/03/2023 4:24 PM
[2023-07-03] MEDS: INSULIN REGULAR 250 UNITS in SODIUM CHLORIDE 0.9% 247.5 ML IV SCH (16:29)
[2023-07-03] MEDS: INSULIN HUMAN REGULAR PER UNIT 5 UNITS in SYRINGE 4.95 ML IV ONE (16:31)
[2023-07-03] MEDS: DROPERIDOL 5 MG/2 ML VIAL ONE (16:37)
[2023-07-03] MEDS: CALCIUM GLUCONATE 1000 MG/60 ML NSS IV ONE (16:37)
[2023-07-03 16:45] LABS: Alanine Aminotransferase 21 U/L (7-52); Albumin Level 3.7 gm/dl (3.4-5.0); Alkaline Phosphatase 127 U/L (34-104); Anion Gap 38 (3-11); Aspartate Aminotransferase 35 U/L (13-39); BUN Creatinine Ratio 30.2 (10-20); Bilirubin Direct 0.1 mg/dl (0-0.2); Bilirubin,Total 0.3 mg/dl (0.2-1.0); Blood Urea Nitrogen 92 mg/dl (6-23); Calcium 7.1 mg/dl (8.6-10.3); Carbon Dioxide 3 mmol/L (21-32); Chloride 77 mmol/L (98-107); Creatine Kinase 849 U/L (26-192); Est GFR (African American) 20.9 ml/min; Glucose 1212 mg/dl (70-99(Fasting)); Lipase 32 U/L (11-82); Phosphorus 14.8 mg/dl (2.5-4.9); Potassium 6.6 mmol/L (3.5-5.1); Sodium 118 mmol/L (136-145); Total Protein 5.7 gm/dl (6.0-8.3)
[2023-07-03 17:33] LABS: Oxygen Saturation ABG 98.9 % (90-95); PCO2 ABG 9 mmHg (35-46); PO2 ABG 184 mmHg (80-95)
[2023-07-03 17:38] LABS: Allen Test Pos (Pos)
[2023-07-03 17:40] LABS: pH ABG < 7.00 (7.35-7.45)
--- NOTE | 2023-07-03 17:53 | Emergency Department Note ---
Impression & Plan DKA (diabetic ketoacidosis), Diabetic coma ED Provider Note NAME: SAJAN FERGUSON AGE: 43 SEX: F : 1980 ARRIVES VIA: Ambulance INFORMANT: Patient, ED PROVIDER(S): Sonja Jenkins MD CHIEF COMPLAINT: Unresponsive HPI: This is a 43-year-old female with history of type 1 diabetes, noncompliance, GERD, DKA presenting for unresponsiveness. As per EMS, family felt that she was just upstairs and has not been seen in about 2 days. On MS arrival, she was completely altered. There glucose monitor read 549. Otherwise she was tachycardic, tachypneic. On arrival to the ER, she is obtunded and moaning. She is tachycardic, tachypneic and hypothermic to 31 degrees. Patient cannot provide any history at this time. Glucose reading here is above 700. ROS: See above HPI for pertinent positives & negatives. A total of 10 systems reviewed and were otherwise negative. PAST MEDICAL HISTORY: See Below PAST SURGICAL HISTORY: See Below FAMILY HISTORY: See Below SOCIAL HISTORY: See Below HOME MEDICATIONS: See Below ALLERGIES: See Below VITALS: See Below PHYSICAL EXAMINATION: General: Toxic appearing Head: Normocephalic and atraumatic Eyes: Reactive Ear, nose, throat: Poor dentition with erythematous posterior oropharynx Neck: Normal range of motion Respiratory: lungs clear to auscultation bilaterally Cardiovascular: Tachycardic, regular rate/rhythm, no murmur GI: soft, nontender, no guarding or rebound Extremities: nontender, moves all extremities Neuro: Obtunded, response to painful stimuli, Skin: Mottled skin MEDICAL DECISION MAKING: This is a 43-year-old female with history of type 1 diabetes, noncompliance, GERD, DKA presenting for unresponsive episode. Patient likely does have DKA clinically. Upon record review, appears that patient's last discharge was for DKA, in the ICU and patient had signed out AGAINST MEDICAL ADVICE. -Reportedly patient has a insulin pump that was recently placed, upon my inspection there is no insulin left in this pump -Currently patient is obtunded, maintaining airway -CT and chest x-ray ordered -Chest Xray independently interpreted by me showing no pneumothorax, focal opacity, or pleural effusions. -CT head does not reveal acute intracranial process -Patient's EKG is highly concerning for hyperkalemia, she has hyperacute, peaked T waves. There is mild QRS prolongation -2 g of calcium gluconate was ordered sequentially for patient's suspected hyperkalemia -Point of care BMP does reveal hyperkalemia 6.5 -Initially upon arrival, 2 L normal saline was ordered for fluid resuscitation -After 2 L, patient became slightly more responsive but is still significantly altered. Now she is pulling at IVs and generally unsafe as patient has numerous confusions at this time. Ordered for soft restraints and 1.25 mg of IV droperidol for calming -Present patient has been down for some time -Initial blood work is highly concerning including pseudohyponatremia due to hyperglycemia. Patient glucose is 1212. Patient is VBG only reveals that pH is less than 7. She otherwise has hyperkalemia 6.6. -Patient treated with calcium gluconate, insulin drip now running -Insulin bolus/drip initiated with 0.1 units/kg -Patient repeat BMP shows worsening CO2 but improving And electrolytes -Will admit to hospitalist service, likely ICU Differential diagnosis: DKA, stroke, hemorrhage, ER treatment provided: See below Diagnostics interpreted by me: ECG: ECG independently interpreted by me with normal sinus rhythm, rate of 84, left axis deviation, normal VA, mildly prolonged QRS, no ST segment elevations consistent with STEMI criteria, significantly peaked/hyperacute T waves Cardiac Monitoring: An order was placed for continuous cardiac monitoring. The monitor shows a rate of 93 with sinus rhythm. Laboratory studies: As stated above and show below. Imaging studies: See below. Critical Care Note: I have personally spent 55 minutes of critical care time in the direct management of this patient. This includes bedside care, interpretation of diagnostic studies, and testing, discussion with consultants, patient, and family members, and other required patient management activities. This 55 minutes is in excess of all separately billable procedures. Past Med/Surg History Medical History (Updated 07/03/23 @ 18:12 by Elkin Browning MD) Hyperglycemia Nausea & vomiting Tobacco abuse GERD (gastroesophageal reflux disease) Substance abuse Hypertension DKA, type 1 Mild acid reflux Environmental and seasonal allergies Asthma Tachycardia Migraine Diabetes type I Surgical History History of appendectomy History of Family History Other Family history non-contributory Social History Smoking Status: Unknown if ever smoked Tobacco Type: Cigarettes Cigarettes Per Day: 20; Second Hand Exposure: No; Do You Dip or Chew Tobacco: No; Hx Alcohol Use: No Hx Substance Use: No Preferred Language: Occitan Communication Ability: Effective Feed Inspection Supervisor Required: No Beliefs That Will Affect Care: None Current Living Situation: Family Current Living Situation Comment: fiance and roommate Feels Safe at Home: Yes Assistive Devices: Glasses Allergies Allergies Allergy/AdvReac Type Severity Reaction Status Date / Time Penicillins Allergy Severe Throat Verified 07/03/23 15:35 swells shut Home Meds Home Medications Medication Instructions Recorded Confirmed aspirin 81 mg tablet,delayed 81 mg PO DAILY 02/16/21 07/03/23 release famotidine 20 mg tablet 20 mg PO DAILY PRN Acid Reflux 02/16/21 07/03/23 insulin glargine 100 unit/mL 0 unit subcut DAILY PRN BSG CONTROL 02/16/21 07/03/23 subcutaneous solution (Lantus U-100 Insulin) insulin lispro 100 unit/mL 0 unit continuous subcutaneous 02/16/21 07/03/23 subcutaneous solution infusion CONTINOUS albuterol sulfate 90 mcg/actuation 1 - 2 puff inhalation .Q4-6H PRN 05/29/23 07/03/23 aerosol inhaler wheezing/SOB Previous Rx's Medication Instructions Recorded blood sugar diagnostic (OneTouch #100 ea 07/13/21 Verio test strips) blood-glucose meter (OneTouch #1 ea 07/13/21 Verio Meter) lancets 33 gauge (OneTouch Delica #100 ea 07/13/21 Lancets) Results & Data (ED) Vital Signs Vital Signs - 24 hr 07/03/23 15:08 07/03/23 15:08 07/03/23 15:17 Temperature 31.8 C L Temperature Source Rectal Pulse Rate 133 H 131 H Pulse Rate from SpO2 Sensor 69 Respiratory Rate 20 24 Blood Pressure 116/88 Blood Pressure Mean 97 Blood Pressure Position Sitting Pulse Oximetry 100 100 100 Oxygen Delivery Method Room Air Room Air Room Air Sepsis New/Unexplained Change in Mental Status N/A Sepsis Action Taken by Nursing No Action Required 07/03/23 15:20 07/03/23 15:30 07/03/23 15:36 Temperature Temperature Source Pulse Rate 135 H 134 H 67 Pulse Rate from SpO2 Sensor 67 73 Respiratory Rate 26 H 23 18 Blood Pressure 103/61 Blood Pressure Mean 75 Blood Pressure Position Pulse Oximetry 100 100 100 Oxygen Delivery Method Room Air Room Air Room Air Sepsis New/Unexplained Change in Mental Status Sepsis Action Taken by Nursing 07/03/23 15:40 07/03/23 16:00 07/03/23 16:10 Temperature Temperature Source Pulse Rate 67 74 73 Pulse Rate from SpO2 Sensor 67 73 74 Respiratory Rate 18 20 22 Blood Pressure Blood Pressure Mean Blood Pressure Position Pulse Oximetry 100 100 100 Oxygen Delivery Method Room Air Room Air Room Air Sepsis New/Unexplained Change in Mental Status Sepsis Action Taken by Nursing 07/03/23 16:17 07/03/23 16:18 07/03/23 16:20 Temperature Temperature Source Pulse Rate 70 70 70 Pulse Rate from SpO2 Sensor 70 70 Respiratory Rate 16 16 Blood Pressure 99/52 L 93/54 L Blood Pressure Mean 67 67 Blood Pressure Position Pulse Oximetry 100 100 Oxygen Delivery Method Room Air Room Air Sepsis New/Unexplained Change in Mental Status Sepsis Action Taken by Nursing 07/03/23 16:25 07/03/23 16:25 07/03/23 16:30 Temperature Temperature Source Pulse Rate 73 73 Pulse Rate from SpO2 Sensor 73 73 Respiratory Rate 22 20 Blood Pressure 95/51 L 95/51 L 101/51 L Blood Pressure Mean 65 63 67 Blood Pressure Position Pulse Oximetry 100 100 Oxygen Delivery Method Room Air Room Air Sepsis New/Unexplained Change in Mental Status Sepsis Action Taken by Nursing 07/03/23 16:35 07/03/23 16:40 07/03/23 16:40 Temperature Temperature Source Pulse Rate 74 75 Pulse Rate from SpO2 Sensor 74 75 Respiratory Rate 22 20 Blood Pressure 99/55 L 88/52 L Blood Pressure Mean 69 58 Blood Pressure Position Pulse Oximetry 100 100 Oxygen Delivery Method Room Air Room Air Sepsis New/Unexplained Change in Mental Status Sepsis Action Taken by Nursing 07/03/23 16:45 07/03/23 16:50 07/03/23 16:55 Temperature 32.1 C L 32.1 C L Temperature Source Pulse Rate 77 77 78 Pulse Rate from SpO2 Sensor 76 77 79 Respiratory Rate 24 20 19 Blood Pressure 102/52 L 89/59 L 104/53 L Blood Pressure Mean 68 69 70 Blood Pressure Position Pulse Oximetry 100 99 100 Oxygen Delivery Method Room Air Room Air Room Air Sepsis New/Unexplained Change in Mental Status Sepsis Action Taken by Nursing 07/03/23 16:58 07/03/23 17:00 07/03/23 17:05 Temperature 32.2 C L 32.2 C L 32.3 C L Temperature Source Cardenas Cath ( Temp Sensing) Pulse Rate 96 H 79 Pulse Rate from SpO2 Sensor 79 80 Respiratory Rate 21 22 Blood Pressure 85/50 L 101/52 L Blood Pressure Mean 61 68 Blood Pressure Position Pulse Oximetry 99 99 Oxygen Delivery Method Room Air Room Air Sepsis New/Unexplained Change in Mental Status Sepsis Action Taken by Nursing 07/03/23 17:10 07/03/23 17:20 07/03/23 17:25 Temperature 32.5 C L 32.7 C L 32.9 C L Temperature Source Pulse Rate 81 81 84 Pulse Rate from SpO2 Sensor 81 81 84 Respiratory Rate 22 24 22 Blood Pressure 98/55 L 98/65 L Blood Pressure Mean 69 76 Blood Pressure Position Pulse Oximetry 99 100 100 Oxygen Delivery Method Room Air Room Air Room Air Sepsis New/Unexplained Change in Mental Status Sepsis Action Taken by Nursing 07/03/23 17:30 07/03/23 17:35 07/03/23 17:40 Temperature 33.0 C L 33.2 C L 33.3 C L Temperature Source Pulse Rate 84 84 86 Pulse Rate from SpO2 Sensor 84 83 84 Respiratory Rate 20 23 22 Blood Pressure 109/59 L 109/56 L 108/61 Blood Pressure Mean 75 73 76 Blood Pressure Position Pulse Oximetry 100 100 100 Oxygen Delivery Method Room Air Room Air Room Air Sepsis New/Unexplained Change in Mental Status Sepsis Action Taken by Nursing 07/03/23 17:45 07/03/23 17:50 07/03/23 17:55 Temperature 33.4 C L 33.6 C L 33.7 C L Temperature Source Pulse Rate 86 88 87 Pulse Rate from SpO2 Sensor 86 88 85 Respiratory Rate 23 20 24 Blood Pressure 119/62 113/57 L 122/56 L Blood Pressure Mean 81 75 78 Blood Pressure Position Pulse Oximetry 100 100 97 Oxygen Delivery Method Room Air Room Air Room Air Sepsis New/Unexplained Change in Mental Status Sepsis Action Taken by Nursing 07/03/23 18:00 07/03/23 18:05 07/03/23 18:10 Temperature 33.8 C L 33.9 C L 34.0 C L Temperature Source Pulse Rate 88 86 85 Pulse Rate from SpO2 Sensor 88 86 85 Respiratory Rate 20 23 16 Blood Pressure 102/65 104/57 L Blood Pressure Mean 77 72 Blood Pressure Position Pulse Oximetry 100 100 100 Oxygen Delivery Method Room Air Room Air Room Air Sepsis New/Unexplained Change in Mental Status Sepsis Action Taken by Nursing 07/03/23 18:10 07/03/23 18:15 Temperature 34.2 C L Temperature Source Pulse Rate 87 Pulse Rate from SpO2 Sensor 87 Respiratory Rate 28 H Blood Pressure 85/57 L 97/61 L Blood Pressure Mean 63 73 Blood Pressure Position Pulse Oximetry 100 Oxygen Delivery Method Room Air Sepsis New/Unexplained Change in Mental Status Sepsis Action Taken by Nursing Laboratory Data 07/03/23 15:30 07/03/23 17:25 Lab Results 07/03/23 07/03/23 07/03/23 Range/Units 15:17 15:24 15:30 WBC 26.79 H (4.8-10.8) K/ul RBC 4.28 (4.20-5.40) M/uL Hgb 12.3 (12.0-16.0) g/dl POC Hgb 13.9 (12.0-16.0) g/dl Hct 39.8 (37.0-47.0) % POC Hct 41 (37-47) % MCV 93.0 (80.0-100.0) fL MCH 28.7 (25.0-34.0) pg MCHC 30.9 L (32.0-36.0) g/dL RDW Std Deviation 44.6 (36.4-46.3) fL RDW Coeff of Alisa 13.2 (11.5-14.5) % Plt Count 422 H (130-400) K/uL MPV 11.3 (9.4-12.4) fL Immature Gran % (Auto) 1.5 % Neut % (Auto) 83.4 % Lymph % (Auto) 8.3 % [facility] [facility] % (Auto) 6.4 % Eos % (Auto) 0.0 % Baso % (Auto) 0.4 % Neut # (Auto) 22.32 H (1.40-6.50) K/uL Lymph # (Auto) 2.22 (1.20-3.40) K/uL [facility] # (Auto) 1.71 H (0.11-0.59) K/uL Eos # (Auto) 0.01 (0.00-0.50) K/uL Baso # (Auto) 0.12 (0.00-0.20) K/uL Immature Gran # (Auto) 0.41 H (0.01-0.20) K/uL Echinocytes 2+ ABG pH (7.35-7.45) ABG pCO2 (35-46) mmHg ABG pO2 (80-95) mmHg ABG HCO3 ABG O2 Saturation (90-95) % ABG Base Excess Moo Test (Pos) VBG pH < 7.00 L (7.36-7.41) Oxygen Given POC Sodium 116 L* (135-144) mmol/L Sodium 118 L* (136-145) mmol/L POC Potassium 6.5 H* (3.3-5.0) mmol/L Potassium 6.6 H* (3.5-5.1) mmol/L POC Chloride 86 L (101-112) mmol/L Chloride 77 L (98-107) mmol/L Carbon Dioxide 3 L* (21-32) mmol/L POC Total CO2 7 L* (24-31) mmol/L Anion Gap 38 H (3-11) POC Anion Gap 30.0 H (16-25) mmol/L POC BUN 93 H (7-18) mg/dl BUN 92 H (6-23) mg/dl Creatinine 3.05 H (0.6-1.2) mg/dl POC Creatinine 3.1 H (0.6-1.3) mg/dl Est Cr Clr Drug Dosing Not Reportable Est GFR ( Amer) 20.9 ml/min Est GFR (Non-Af Amer) 18.0 ml/min BUN/Creatinine Ratio 30.2 H (10-20) Glucose 1212 H* (70-99(Fasting)) mg/dl POC Glucose > 600 H* (70-99) mg/dl POC Glucose (other) > 700 H* (70-99) mg/dl Lactate 2.9 H* (0.4-2.0) mmol/L Calcium 7.1 L (8.6-10.3) mg/dl POC Ioniz Calcium Farhan 0.93 L (1.12-1.32) mmol/l Phosphorus 14.8 H (2.5-4.9) mg/dl Magnesium 3.0 H (1.7-2.4) mg/dl Total Bilirubin 0.3 (0.2-1.0) mg/dl Direct Bilirubin 0.1 (0-0.2) mg/dl AST 35 (13-39) U/L ALT 21 (7-52) U/L Alkaline Phosphatase 127 H (34-104) U/L Total Creatine Kinase 849 H (26-192) U/L Total Protein 5.7 L (6.0-8.3) gm/dl Albumin 3.7 (3.4-5.0) gm/dl Lipase 32 (11-82) U/L HCG, Qual Negative (Negative) Urine Color Urine Appearance (Clear) Urine pH (4.5-7.5) Ur Specific [place] (1.000-1.030) Urine Protein (Negative) Urine Glucose (UA) (Negative) Urine Ketones (Negative) Urine Blood (Negative) Urine Nitrite (Negative) Urine Bilirubin (Negative) Urine Urobilinogen (Negative) Ur Leukocyte Esterase (Negative) Urine WBC (Auto) (0-5) /hpf Urine RBC (Auto) (0-4) /hpf U Hyaline Cast (Auto) (0-5) /lpf U Epithel Cells (Auto) (0-5) /lpf Urine Bacteria (Auto) (Negative) 07/03/23 07/03/23 07/03/23 Range/Units 15:39 17:22 17:25 WBC (4.8-10.8) K/ul RBC (4.20-5.40) M/uL Hgb (12.0-16.0) g/dl POC Hgb (12.0-16.0) g/dl Hct (37.0-47.0) % POC Hct (37-47) % MCV (80.0-100.0) fL MCH (25.0-34.0) pg MCHC (32.0-36.0) g/dL RDW Std Deviation (36.4-46.3) fL RDW Coeff of Alisa (11.5-14.5) % Plt Count (130-400) K/uL MPV (9.4-12.4) fL Immature Gran % (Auto) % Neut % (Auto) % Lymph % (Auto) % [facility] % (Auto) % Eos % (Auto) % Baso % (Auto) % Neut # (Auto) (1.40-6.50) K/uL Lymph # (Auto) (1.20-3.40) K/uL [facility] # (Auto) (0.11-0.59) K/uL Eos # (Auto) (0.00-0.50) K/uL Baso # (Auto) (0.00-0.20) K/uL Immature Gran # (Auto) (0.01-0.20) K/uL Echinocytes ABG pH < 7.00 L* (7.35-7.45) ABG pCO2 9 L (35-46) mmHg ABG pO2 184 H (80-95) mmHg ABG HCO3 TNP ABG O2 Saturation 98.9 H (90-95) % ABG Base Excess TNP Moo Test Pos (Pos) VBG pH (7.36-7.41) Oxygen Given ROOM AIR POC Sodium (135-144) mmol/L Sodium 125 L (136-145) mmol/L POC Potassium (3.3-5.0) mmol/L Potassium 5.0 D (3.5-5.1) mmol/L POC Chloride (101-112) mmol/L Chloride 90 L (98-107) mmol/L Carbon Dioxide 2 L* (21-32) mmol/L POC Total CO2 (24-31) mmol/L Anion Gap 33 H (3-11) POC Anion Gap (16-25) mmol/L POC BUN (7-18) mg/dl BUN 87 H (6-23) mg/dl Creatinine 2.71 H D (0.6-1.2) mg/dl POC Creatinine (0.6-1.3) mg/dl Est Cr Clr Drug Dosing 19.4 Est GFR ( Amer) 24.1 ml/min Est GFR (Non-Af Amer) 20.8 ml/min BUN/Creatinine Ratio 32.1 H (10-20) Glucose (70-99(Fasting)) mg/dl POC Glucose (70-99) mg/dl POC Glucose (other) (70-99) mg/dl Lactate (0.4-2.0) mmol/L Calcium 6.6 L (8.6-10.3) mg/dl POC Ioniz Calcium Farhan (1.12-1.32) mmol/l Phosphorus 11.0 H (2.5-4.9) mg/dl Magnesium 2.5 H (1.7-2.4) mg/dl Total Bilirubin (0.2-1.0) mg/dl Direct Bilirubin (0-0.2) mg/dl AST (13-39) U/L ALT (7-52) U/L Alkaline Phosphatase (34-104) U/L Total Creatine Kinase (26-192) U/L Total Protein (6.0-8.3) gm/dl Albumin (3.4-5.0) gm/dl Lipase (11-82) U/L HCG, Qual (Negative) Urine Color Yellow Urine Appearance Clear (Clear) Urine pH 5.0 (4.5-7.5) Ur Specific [place] 1.021 (1.000-1.030) Urine Protein 2+ H (Negative) Urine Glucose (UA) 3+ H (Negative) Urine Ketones 2+ H (Negative) Urine Blood 2+ H (Negative) Urine Nitrite Negative (Negative) Urine Bilirubin Negative (Negative) Urine Urobilinogen Negative (Negative) Ur Leukocyte Esterase Negative (Negative) Urine WBC (Auto) 1-5 (0-5) /hpf Urine RBC (Auto) 0-4 (0-4) /hpf U Hyaline Cast (Auto) 1-5 (0-5) /lpf U Epithel Cells (Auto) 20-30 H (0-5) /lpf Urine Bacteria (Auto) Negative (Negative) 07/03/23 Range/Units 17:42 WBC (4.8-10.8) K/ul RBC (4.20-5.40) M/uL Hgb (12.0-16.0) g/dl POC Hgb (12.0-16.0) g/dl Hct (37.0-47.0) % POC Hct (37-47) % MCV (80.0-100.0) fL MCH (25.0-34.0) pg MCHC (32.0-36.0) g/dL RDW Std Deviation (36.4-46.3) fL RDW Coeff of Alisa (11.5-14.5) % Plt Count (130-400) K/uL MPV (9.4-12.4) fL Immature Gran % (Auto) % Neut % (Auto) % Lymph % (Auto) % [facility] % (Auto) % Eos % (Auto) % Baso % (Auto) % Neut # (Auto) (1.40-6.50) K/uL Lymph # (Auto) (1.20-3.40) K/uL [facility] # (Auto) (0.11-0.59) K/uL Eos # (Auto) (0.00-0.50) K/uL Baso # (Auto) (0.00-0.20) K/uL Immature Gran # (Auto) (0.01-0.20) K/uL Echinocytes ABG pH (7.35-7.45) ABG pCO2 (35-46) mmHg ABG pO2 (80-95) mmHg ABG HCO3 ABG O2 Saturation (90-95) % ABG Base Excess Moo Test (Pos) VBG pH (7.36-7.41) Oxygen Given POC Sodium (135-144) mmol/L Sodium (136-145) mmol/L POC Potassium (3.3-5.0) mmol/L Potassium (3.5-5.1) mmol/L POC Chloride (101-112) mmol/L Chloride (98-107) mmol/L Carbon Dioxide (21-32) mmol/L POC Total CO2 (24-31) mmol/L Anion Gap (3-11) POC Anion Gap (16-25) mmol/L POC BUN (7-18) mg/dl BUN (6-23) mg/dl Creatinine (0.6-1.2) mg/dl POC Creatinine (0.6-1.3) mg/dl Est Cr Clr Drug Dosing Est GFR ( Amer) ml/min Est GFR (Non-Af Amer) ml/min BUN/Creatinine Ratio (10-20) Glucose (70-99(Fasting)) mg/dl POC Glucose > 600 H* (70-99) mg/dl POC Glucose (other) (70-99) mg/dl Lactate 1.8 (0.4-2.0) mmol/L Calcium (8.6-10.3) mg/dl POC Ioniz Calcium Farhan (1.12-1.32) mmol/l Phosphorus (2.5-4.9) mg/dl Magnesium (1.7-2.4) mg/dl Total Bilirubin (0.2-1.0) mg/dl Direct Bilirubin (0-0.2) mg/dl AST (13-39) U/L ALT (7-52) U/L Alkaline Phosphatase (34-104) U/L Total Creatine Kinase (26-192) U/L Total Protein (6.0-8.3) gm/dl Albumin (3.4-5.0) gm/dl Lipase (11-82) U/L HCG, Qual (Negative) Urine Color Urine Appearance (Clear) Urine pH (4.5-7.5) Ur Specific [place] (1.000-1.030) Urine Protein (Negative) Urine Glucose (UA) (Negative) Urine Ketones (Negative) Urine Blood (Negative) Urine Nitrite (Negative) Urine Bilirubin (Negative) Urine Urobilinogen (Negative) Ur Leukocyte Esterase (Negative) Urine WBC (Auto) (0-5) /hpf Urine RBC (Auto) (0-4) /hpf U Hyaline Cast (Auto) (0-5) /lpf U Epithel Cells (Auto) (0-5) /lpf Urine Bacteria (Auto) (Negative) Administered Medications Insulin Human Regular 250 (units/ Sodium Chloride) 250 mls @ 5 mls/hr IV .Q24H JEF; Protocol Stop: 08/02/23 15:29 Last Titration: 07/03/23 17:49 Dose: 5 units/hr, 5 mls/hr Documented By: DRU Co-signed By: BRIAN Admin: 07/03/23 16:29 Dose: 5 units/hr, 5 mls/hr Documented By: DRU Co-signed By: BRIAN Sodium Chloride (Nss) 1,000 mls @ 999 mls/hr IV .Q1H1M JEF Stop: 07/03/23 19:30 Last Admin: 07/03/23 17:37 Dose: 999 mls/hr Documented By: Infusion: 07/03/23 17:36 Dose: Infused Documented By: Admin: 07/03/23 15:23 Dose: 999 mls/hr Documented By: DRU Calcium Gluconate 1,000 mg/ (Sodium Chloride) 60 mls @ 240 mls/hr IV 1800 ONE Stop: 07/03/23 18:14 Last Admin: 07/03/23 18:15 Dose: 240 mls/hr Documented By: DRU Discontinued Medications Calcium Gluconate (Calcium Gluconate 1000 Mg/60 Ml Nss) Confirm Administered Dose 1,000 mg IV .STK-MED ONE Stop: 07/03/23 15:21 Last Admin: 07/03/23 16:37 Dose: Not Given Documented By: DRU Droperidol (Droperidol 5 Mg/2 Ml Vial) Confirm Administered Dose 5 mg .ROUTE .STK-MED ONE Stop: 07/03/23 16:09 Last Admin: 07/03/23 16:37 Dose: Not Given Documented By: DRU Droperidol (Droperidol 5 Mg/2 Ml Vial) 1.25 mg IV ONE STA Stop: 07/03/23 16:26 Last Admin: 07/03/23 16:14 Dose: 1.25 mg Documented By: DRU Insulin Human Regular 5 units/ (Syringe) 5 mls @ 5 mls/min IV NOW ONE Stop: 07/03/23 15:46 Last Admin: 07/03/23 16:31 Dose: 5 mls/min Documented By: DRU Co-signed By: BRIAN Calcium Gluconate () 1,000 mg in 60 mls @ 240 mls/hr IV NOW STA Stop: 07/03/23 16:39 Last Infusion: 07/03/23 16:41 Dose: Infused Documented By: Admin: 07/03/23 15:23 Dose: 240 mls/hr Documented By: DRU Imaging Data Radiologist's Impression: Chest X-Ray 07/03/23 15:25 XR chest 1V portable HISTORY: 43 years-old Female SOB acute shortness of breath COMPARISON: 05/29/2023 TECHNIQUE: AP view of the chest FINDINGS: Cardiomediastinal and hilar silhouettes are within normal limits. No pneumothorax, pleural effusion or airspace consolidation. The bones appear grossly intact. IMPRESSION: No acute process. ACT 112: Negative or not required by law. The above report was generated using voice recognition software. It may contain grammatical, syntax or spelling errors. Electronically signed by: Saud Zavaleta M.D. 07/03/2023 3:[address] 07/03/23 15:25 CT head/brain wo con CLINICAL HISTORY: 43 years-old Female with unresponsive. Acutely altered mental status. TECHNIQUE: Multiple axial CT images of the head were obtained without contrast. A dose lowering technique was utilized adhering to the principles of ALARA. CT DOSE: 547.75 mGy.cm COMPARISON: 05/01/2019. FINDINGS: No acute intracranial hemorrhage, midline shift, intracranial mass, hydrocephalus, territorial ischemia or abnormal extra-axial collection. Limited exam secondary to positioning and motion. The calvarium is intact. There are a few partially calcified subcentimeter subcutaneous nodules in the occipital scalp. The paranasal sinuses, mastoid air cells, and middle ear cavities are clear. IMPRESSION: No acute intracranial abnormality identified. ACT 112: Negative or not required by law. The above report was generated using voice recognition software. It may contain grammatical, syntax or spelling errors. Electronically signed by: Saud Zavaleta M.D. 07/03/2023 4:24 PM Discharge Plan Visit Data Chief Complaint: Unresponsive Stated Complaint: UNRESPONSIVE, HYPERGLYCEMIA ED Provider: Sonja Jenkins Discharge Problem: DKA (diabetic ketoacidosis), Diabetic coma Forms Stand Alone Forms: [facility] Prescriptions Prescriptions: No Action (DME) OneTouch Verio test strips Strip See Rx Instructions .Route Qty: 100 0RF Rx Instructions: As directed (DME) blood-glucose meter [OneTouch Verio Meter] Misc See Rx Instructions .Route Qty: 1 0RF Rx Instructions: As directed (DME) lancets [OneTouch Delica Lancets] 33 gauge misc See Rx Instructions .Route Qty: 100 0RF Rx Instructions: As directed insulin glargine [Lantus U-100 Insulin] 100 unit/mL solution 0 unit SUBCUT DAILY PRN (Reason: BSG CONTROL) Rx Instructions: * back up insulin---UNABLE TO VERIFY aspirin 81 mg tablet,delayed release (DR/EC) 81 mg PO DAILY Rx Instructions: UNABLE TO VERIFY famotidine 20 mg tablet 20 mg PO DAILY PRN (Reason: Acid Reflux) Rx Instructions: UNABLE TO VERIFY insulin lispro 100 unit/mL solution 0 unit continuous subcutaneous infusion CONTINOUS MDD 150 UNITS/24 HOURS Rx Instructions: INSULIN PUMP--LAST FILL AT PHARMACY 05/20/23 FOR 60 DAYS SUPPLY. albuterol sulfate 90 mcg/actuation HFA aerosol inhaler 1 - 2 puff INHALATION .Q4-6H PRN (Reason: wheezing/SOB) Rx Instructions: UNABLE TO VERIFY Referrals Referrals: Ayleen Olivas PA-C [Primary Care Provider] -
[2023-07-03] MEDS ORDERED: STAT IV/IM STA (17:56)
[2023-07-03 18:04] LABS: BUN Creatinine Ratio 32.1 (10-20); Calcium 6.6 mg/dl (8.6-10.3); Creatinine Clr Calc Pharmacy 19.4 ml/min; Est GFR (African American) 24.1 ml/min; Est GFR (Non-African American) 20.8 ml/min; Magnesium 2.5 mg/dl (1.7-2.4)
[2023-07-03] MEDS: CALCIUM GLUCONATE 10% 1,000 MG in SODIUM CHLOR 0.9% MINI-B 50 ML IV ONE (18:15)
--- NOTE | 2023-07-03 18:20 | History & Physical Report ---
Date of Service July 03, 2023 Assessment & Plan (1) DKA (diabetic ketoacidosis): Plan: DKA, type I DM BSG >1000. Initial VBG pH less than 7. ABG with pH less than 7, pCO2 9, undetectable bicarb. Received 2.5 L of saline, (500 cc and route prehospital and 2 L while in the ER) Potassium 6.6, bicarb 3, anion gap 38, lactate 2.9, phosphorus 14.8, mag 3.0. - Repeat BMP post bolus fluids K 5.0, Bicarb 2, AG 33. Lactate normalized. On reassessment Patient was found down, CK is elevated 849 mild rhabdo Patient started on insulin drip, calcium gluconate given in the ER and repeated after 1 hour -Insulin gtt. DKA protocol continued. Goal decrease no more than 100 mg/dL/h Potassium normalized on recheck, maintenance fluids have been switched to Plasma-Lyte with 20 mEq KCl Patient has multiple admissions for DKA and unfortunately multiple AMA disc harges. Tylenol level/salicylate level/osmolality pending. (2) Diabetes type I: Plan: With DKA managed as above Patient will need follow-up with special education paraeducator and close follow-up. (3) Hyperkalemia: Plan: Hyperkalemia With DKA, profound volume contraction, and ARF EKG with peaked T waves, sinus tachycardia Received calcium gluconate in ER On insulin drip and receiving continued volume resuscitation S/p crystalloid resuscitation BMP every 4 hours, repeat potassium 5 point Calcium gluconate hourly until potassium normalizes (4) Unresponsive: Plan: Unresponsive/obtunded, hypothermic With profound volume contraction, DKA On reassessment mentation is improving and patient is oriented to name, hospital, and current president. Denies falls. Falls asleep easily. Denies pain. She denies neck pain and neck tenderness to palpation Lower extremities are mottled without trauma. Abdomen is soft and nontender. No flank contusions or hematomas are seen. CThead is without acute findings Following fluids and initial resuscitation patient arouse but became extremely combative and agitated and attempted to move medical equipment, required droperidol 1.25mg IV x 1 for sedation Hypothermic at 31.8. Patient was found down on the floor in her room, Gurpreet hugger in place gradually improving. 34.4 on recheck On reassessment patient is beginning to have improved mentation. Is now oriented to place, name and is able to give the president although not the year/date (5) GERD (gastroesophageal reflux disease): Plan: History of GERD/hematemesis On hospital admission 05/02/2023 patient had dark coffee-ground emesis on her initial evaluation with a history of GERD and daily aspirin use She was continued on PPI twice daily at that time however left AMA. PPI twice daily resumed Hemoglobin trended (6) Substance abuse: Plan: History of drug use: Patient denies history of drug use, has had UDS positive for amphetamines. UDS on admit positive for amphetamine. Tylenol/aspirin/alcohol level pending Tobacco abuse. Cessation encouraged, nicotine patch as needed Plan DVT prophylaxis: Heparin SQ Disposition: ICU CODE STATUS: Full code Diet: N.p.o. History of Present Illness Primary Care Provider: Ayleen Brendon Delacruz is a 43-year-old female with past medical history of type 1 diabetes mellitus with hospital admissions for DKA, periodic substance abuse, hypertension, tobacco use, GERD, asthma last discharged 05/30/2023 following an admission to the ICU for DKA and who had left AMA at that time with last blood sugar of 309, bicarb 19, and anion gap of 10. Nubia is seen at the bedside in the ER. Patient is sedated and not able to give any history. She awakens transiently to voice and mumbles her name otherwise does not answer questions including orientation questions. Per nursing and EMS report patient was last seen by family / 2 days prior to day of admission. She was in her home that morning however she was not seen by family until day of admission, 07/03. Patient was found on the floor in her room unresponsive with shallow breathing and ill appearance. EMS was called. Patient's insulin pump is set to 34 units daily however no insulin is loaded into the pump and unclear if she has recieved any insulin in the preceding days or when it was last filled. She was recently seen in the hospital in April for DKA as well had left AMA at that time and reportedly had done well for the preceding 2 weeks without diabetic complications No contact information available in the record, patient refused for collateral Medical history, medications, surgical history, family history, allergies, social history reviewed in EMR. History is limited at bedside due to mental status Social History: History of tobacco use, IV drug use methamphetamine use. Code Status: Full code Allergies Allergy/AdvReac Type Severity Reaction Status Date / Time Penicillins Allergy Severe Throat Verified 07/03/23 15:35 swells shut Home Medications Medication Instructions Recorded Confirmed Type aspirin 81 mg tablet,delayed 81 mg PO DAILY 02/16/21 07/03/23 History release famotidine 20 mg tablet 20 mg PO DAILY PRN Acid Reflux 02/16/21 07/03/23 History insulin glargine 100 unit/mL 0 unit subcut DAILY PRN BSG CONTROL 02/16/21 07/03/23 History subcutaneous solution (Lantus U-100 Insulin) insulin lispro 100 unit/mL 0 unit continuous subcutaneous 02/16/21 07/03/23 History subcutaneous solution infusion CONTINOUS blood sugar diagnostic (OneTouch #100 ea 07/13/21 Rx Verio test strips) blood-glucose meter (OneTouch #1 ea 07/13/21 Rx Verio Meter) lancets 33 gauge (OneTouch Delica #100 ea 07/13/21 Rx Lancets) albuterol sulfate 90 mcg/actuation 1 - 2 puff inhalation .Q4-6H PRN 05/29/23 07/03/23 History aerosol inhaler wheezing/SOB Past Med/Surg History Medical History (Updated 07/03/23 @ 18:12 by Elkin Browning MD) Hyperglycemia Nausea & vomiting Tobacco abuse GERD (gastroesophageal reflux disease) Substance abuse Hypertension DKA, type 1 Mild acid reflux Environmental and seasonal allergies Asthma Tachycardia Migraine Diabetes type I Surgical History History of appendectomy History of Family History Other Family history non-contributory Social History Smoking Status: Unknown if ever smoked Tobacco Type: Cigarettes Cigarettes Per Day: 20; Second Hand Exposure: No; Do You Dip or Chew Tobacco: No; Hx Alcohol Use: No Hx Substance Use: No Preferred Language: Belarusian Communication Ability: Effective Import Manager Required: No Beliefs That Will Affect Care: None Current Living Situation: Family Current Living Situation Comment: fiance and roommate Feels Safe at Home: Yes Assistive Devices: Glasses Physical Exam Physical Exam: General: Arousable to voice and only able to give name initially, on reevaluation is oriented to name/place/president. Appears severely ill HEENT: Atraumatic, normocephalic. Severely volume contracted, mucous membranes dry and cracked. Posterior oropharynx is dry and erythematous without exudate. Pupils equal and reactive to light, no pinpoint pupils are present. Pulm: Tachypneic with respiratory rate of 24. Lungs are grossly clear. Cardiac: RRR, -mrg. Radial pulses intact and symmetrical. Abdominal: nondistended, soft. BS present. extremities: Withdraws all extremities to noxious stimuli. Lower extremities are cool and mottled. Radial pulse and PT pulse are intact but diminished. Capillary refill in the fingers and toes delayed. Unable to assess strength/sensation due to cognitive status Results & Data Results & Data Vital Signs (Past 12 Hours) Vital Signs Temp Pulse Resp BP Pulse Ox O2 Del Method 07/03/23 17:55 33.7 C L 87 24 122/56 L 97 Room Air 07/03/23 17:50 33.6 C L 88 20 113/57 L 100 Room Air 07/03/23 17:45 33.4 C L 86 23 119/62 100 Room Air 07/03/23 17:40 33.3 C L 86 22 108/61 100 Room Air 07/03/23 17:35 33.2 C L 84 23 109/56 L 100 Room Air 07/03/23 17:30 33.0 C L 84 20 109/59 L 100 Room Air 07/03/23 17:25 32.9 C L 84 22 98/65 L 100 Room Air 07/03/23 17:20 32.7 C L 81 24 98/55 L 100 Room Air 07/03/23 17:10 32.5 C L 81 22 99 Room Air 07/03/23 17:05 32.3 C L 79 22 101/52 L 99 Room Air 07/03/23 17:00 32.2 C L 96 H 21 85/50 L 99 Room Air 07/03/23 16:58 32.2 C L 07/03/23 16:55 32.1 C L 78 19 104/53 L 100 Room Air 07/03/23 16:50 32.1 C L 77 20 89/59 L 99 Room Air 07/03/23 16:45 77 24 102/52 L 100 Room Air 07/03/23 16:40 88/52 L 07/03/23 16:40 75 20 99/55 L 100 Room Air 07/03/23 16:35 74 22 100 Room Air 07/03/23 16:30 73 20 101/51 L 100 Room Air 07/03/23 16:25 95/51 L 07/03/23 16:25 73 22 95/51 L 100 Room Air 07/03/23 16:20 70 16 93/54 L 100 Room Air 07/03/23 16:18 70 07/03/23 16:17 70 16 99/52 L 100 Room Air 07/03/23 16:10 73 22 100 Room Air 07/03/23 16:00 74 20 100 Room Air 07/03/23 15:40 67 18 100 Room Air 07/03/23 15:36 67 18 103/61 100 Room Air 07/03/23 15:30 134 H 23 100 Room Air 07/03/23 15:20 135 H 26 H 100 Room Air 07/03/23 15:17 131 H 24 100 Room Air 07/03/23 15:08 100 Room Air 07/03/23 15:08 31.8 C L 133 H 20 116/88 100 Room Air PG Care Time/CCT Total # of Minutes Spent Total Time Spent with Patient: Total time spent is greater than 50% in coordination of care (as documented) at patient's floor/unit and/or counseling patient: Coding Level of Care Code 39882 INT INP/OBS CARE MIN Diagnoses DKA (diabetic ketoacidosis) E13.10 Diabetes mellitus complication detail: without coma Diabetes mellitus type: other specified (including VIANNEY) Diabetes type I E10.9 Hyperkalemia E87.5 Unresponsive R41.89 GERD (gastroesophageal reflux disease) K21.9 Substance abuse F19.10 (1) DKA (diabetic ketoacidosis) Diabetes mellitus complication detail: without coma Diabetes mellitus type: other specified (including VIANNEY) Qualified Code(s): E13.10 - Other specified diabetes mellitus with ketoacidosis without coma
[2023-07-03] MEDS ORDERED: CARBOHYDRATES FOR HYPOGLYCEMIA PO PRN (18:30)
[2023-07-03] MEDS ORDERED: GLUCOSE 40% GEL 15 GM TUBE PO PRN (18:30)
[2023-07-03] MEDS ORDERED: GLUCOSE 10 TAB/TUBE PO PRN (18:30)
[2023-07-03] MEDS ORDERED: GLUCAGON FOR INJ 1 MG VIAL IM PRN (18:30)
[2023-07-03 18:33] LABS: Amphetamines+Metham, Urine Pos (Neg); Barbiturates, Urine Neg (Neg); Benzodiazepine, Urine Neg (Neg); Cocaine, Urine Neg (Neg); MDMA (Ecstacy), Urine Neg (Neg); Marijuana, Urine Neg (Neg); Methadone, Urine Neg (Neg); Opiate, Urine Neg (Neg); Phencyclidine, Urine Neg (Neg)
[2023-07-03] MEDS: POTASSIUM CHLORIDE 20 MEQ in PLASMA-LYTE A 1,000 ML IV SCH (18:44)
--- NOTE | 2023-07-03 18:49 | Critical Care Consultation ---
Date of Consultation July 03, 2023 Assessment & Plan (1) DKA (diabetic ketoacidosis): (2) Encephalopathy: (3) High anion gap metabolic acidosis: (4) SUZY (acute kidney injury): (5) Leukocytosis: (6) GERD (gastroesophageal reflux disease): (7) Substance abuse: (8) Asthma: Plan Reason Critically Ill: 43 YOF found down at home for unkown period of time with empty insulin pump. Admitted to ICU for severe acidosis, hypovolemia, and elevated AGAP and blood glucose most consistent with severe DKA at this time. Neuro - Encehpalpathy, substance abuse/misuse CAM ICU: NIMA - Encephalopathy improved from unresponsive to combative to now with mild to moderate encephalopathy - at this time most consistent to DKA and effects of Droperidol administration - Follow neurological exam - If behavior issues arise again consider Haldol - Urine tox screen is positive again for amphetamines- patient denies use - Monitor for ETOH withdraw - unsure of her intake - however voices use - ETOH level pending Cardiac - Hypovolemia - Remains with very dry mucous membranes and poor skin turgor as well as delayed capillary refill- consistency with hypovolemia secondary to osmotic diuresis - Continue with Volume replacement- will administer another liter of plasmalyte Respiratory - Tachypnea, Asthma - compensatory from metabolic acidosis - no oxygen need - no acute opacities noted on CXR - Continue OLGA as needed- nebulizers if wheezing and mentation remains poor GI - GERD - Continue home PPI RENAL/LYTES - High AGAP uncompensated metabolic acidosis, compensatory respiratory alkalosis, multiple electrolyte disturbances, Elevated CK, SUZY - High AGAP metabolic acidosis at this time secondary to DKA - Serum and urine osmol - 364/422 respectively - Osmolar gap- 30 traditional - Chamler's- 12.5- likely elevated secondary to uremia and ketosis - ETOH negative and lactate has cleared- follow renal indices and mentation - ETOH level - Lactate has cleared - DKA- continue with crystalloid for volume, insulin infusion per DKA protocol - Attempt to decrease glucose no more than 100-155mg/DL per hour - Add dextrose to IVF once BG at 250mg/dl - BMP and VBG q4 hours- consider HCO3 administration if needed to assist with acid base- however should respond to current therapies - Elevated CK at 849- rhabdo not present by this level- continue with IVF as above - Electrolyte replace aggressively - Hyponatremia likely pseudo secondary to glucose >900 - SUZY likely pre-renal at this time from hypovolemia- protein present in urine, follow BMP q4 avoid further nephrotoxic medications as able - Cardenas to gravity - Can likely discontinue in the morning ENDO - DMI, DKA - As above - May have to get life educator to review pump and information regarding her past few days/week of administration HEME - Leukocytosis - Likley multifactorial at this time to include stress response and hemoconcentration - no findings on CXR for concern of infection - urine with no concern for infection - follow fever curve and hemodynamics ID - As above - no indication at this time for antibiotic therapy LINES/IV ACCESS - PIV, Cardenas Continue use of these lines DVT PROPHYLAXIS -SCDS, Heparin 5000 units sub q q12 DISPO: ICU until PH >7.3, Gap closed, HCO3 18, and glucose <250 I have personally spent 60 minutes of critical care time in the direct management of this patient. This is a life/limb threatening event. This includes time spent evaluating patient, direct bedside care, chart review, placing orders, interpretation of diagnostic studies, discussion with consultants, patient, and family members, as well as other required patient management activities. This time is exclusive of all separately billable procedures, and teaching time and separate from and in addition to any other critical care service time. Thank you for allowing us to participate in the care of this patient. Please refer to my attending physician's documentation for any further recommendations. Supervising Physician Co-Signing Physician Notes Seen and examined. Discussed with critical care NERIS. Please refer to my progress note from 07/04/2023 for additional details History of Present Illness Reason for Consultation: DKA Requesting Physician: Elkin Browning MD Attending Physician: Elkin Browning MD History of Present Illness 43 YOF with medical history of: DM I with insulin pump, DKA, substance abuse, GERD, HTN, Asthma. Patient presents to the ICU today via EMS secondary to being found on the ground at home by family members after not being heard from for 2 days. The patient arrived to the EMD obtunded and hypothermic. Routine labs were performed that was notable for Glucose > 1000 and HCO3 3, and GAP of 33. She was diagnosed with DKA and received 2.5 liters of cyrstalloid and insulin infusion. Following warming with opal hugger and therapies she did awaken to a confused and combative state for which she was given Droperidol for. VBG was also obtained with PH <7.0, and rest of BMP was notable for SUZY and hypocalcemia. It must also be noted that the patient has an insulin pump on and was empty of insulin, reportedly her basal rate is 34 units per day. Patient was admitted by the medical service to ICU. Patient will be followed in the ICU for continued resuscitation of volume, correction of hyperglycemia with insulin infusion, follow acid base status and search for other causes. Patient was previously admitted at the end of April with DKA and left AMA, at that time she was noted to have urine toxicology with amphetamines and confirmatory level of 1808. Patient is with mentation now but with slow and delayed responses likely secondary to droperidol and DKA. She endorses that she does not use drugs but stated she does drink Vodka and water and gatorade. She has no recollection of any events leading up to hospitalization. She is with rubor to her hands and feet and is moving all her extremities. She is alert to person and place. CODE: FULL by admitting service Allergies Allergy/AdvReac Type Severity Reaction Status Date / Time Penicillins Allergy Severe Throat Verified 07/03/23 15:35 swells shut Home Medications Medication Instructions Recorded Confirmed Type aspirin 81 mg tablet,delayed 81 mg PO DAILY 02/16/21 07/03/23 History release famotidine 20 mg tablet 20 mg PO DAILY PRN Acid Reflux 02/16/21 07/03/23 History insulin glargine 100 unit/mL 0 unit subcut DAILY PRN BSG CONTROL 02/16/21 07/03/23 History subcutaneous solution (Lantus U-100 Insulin) insulin lispro 100 unit/mL 0 unit continuous subcutaneous 02/16/21 07/03/23 History subcutaneous solution infusion CONTINOUS blood sugar diagnostic (C7 GroupTouch #100 ea 07/13/21 Rx Verio test strips) blood-glucose meter (C7 GroupTouch #1 ea 07/13/21 Rx Verio Meter) lancets 33 gauge (OneTouch Delica #100 ea 07/13/21 Rx Lancets) albuterol sulfate 90 mcg/actuation 1 - 2 puff inhalation .Q4-6H PRN 05/29/23 07/03/23 History aerosol inhaler wheezing/SOB Patient History Medical History Hyperglycemia Nausea & vomiting Tobacco abuse GERD (gastroesophageal reflux disease) Substance abuse Hypertension DKA, type 1 Mild acid reflux Environmental and seasonal allergies Asthma Tachycardia Migraine Diabetes type I Surgical History History of appendectomy History of Family History Other Family history non-contributory Social History Smoking Status: Unknown if ever smoked Tobacco Type: Cigarettes Cigarettes Per Day: 20; Second Hand Exposure: No; Do You Dip or Chew Tobacco: No; Preferred Language: Greenlandic Communication Ability: Effective Blower Installer Required: No Beliefs That Will Affect Care: None Current Living Situation: Family Current Living Situation Comment: fiance and roommate Feels Safe at Home: Yes Assistive Devices: Denture - Upper, Denture - Lower and Glasses Review of Systems Review of Systems: uanble to perform secondary to patient not being able to provide meaningful history or review Physical Exam Physical Exam: PHYSICAL EXAM: General: awake, alert, Head: Normocephalic, atraumatic ENT: PERRLA, EOMI, mucous membranes very dry Neuro: AAO x 2, speech slow but mostly appropriate, words are slurry but likely secondary to the dryness of her mouth and tongue, strength intact bilaterally 5/5, sensation intact and equal, no pronator drift Chest: equal rise and fall of the chest, no accessory muscle use, no heaves or thrills, Clear to auscultation, on room air, Cardiac: Regular rate and rhythm, telemetry reviewed, skin warm dry, cap refill >3 seconds, peripheral pulses +2 no JVD, no murmur, no edema GI: NABS x 4 quadrants, soft, nontender to palpation, no rebound, guarding or tenderness : Cardenas to gravity draining dilute yellow urine Psych: currently calm and cooperative Skin: rubor to feet and hands with cap refil >3 sec and scabs to hands and arms Results & Data Results & Data Vital Signs (Past 12 Hours) Vital Signs Temp Pulse Resp BP Pulse Ox O2 Del Method 07/03/23 18:21 34.4 C L 86 26 H 100 Room Air 07/03/23 18:20 34.4 C L 88 23 100 Room Air 07/03/23 18:15 34.2 C L 87 28 H 97/61 L 100 Room Air 07/03/23 18:10 85/57 L 07/03/23 18:10 34.0 C L 85 16 100 Room Air 07/03/23 18:05 33.9 C L 86 23 104/57 L 100 Room Air 07/03/23 18:00 33.8 C L 88 20 102/65 100 Room Air 07/03/23 17:55 33.7 C L 87 24 122/56 L 97 Room Air 07/03/23 17:50 33.6 C L 88 20 113/57 L 100 Room Air 07/03/23 17:45 33.4 C L 86 23 119/62 100 Room Air 07/03/23 17:40 33.3 C L 86 22 108/61 100 Room Air 07/03/23 17:35 33.2 C L 84 23 109/56 L 100 Room Air 07/03/23 17:30 33.0 C L 84 20 109/59 L 100 Room Air 07/03/23 17:25 32.9 C L 84 22 98/65 L 100 Room Air 07/03/23 17:20 32.7 C L 81 24 98/55 L 100 Room Air 07/03/23 17:10 32.5 C L 81 22 99 Room Air 07/03/23 17:05 32.3 C L 79 22 101/52 L 99 Room Air 07/03/23 17:00 32.2 C L 96 H 21 85/50 L 99 Room Air 07/03/23 16:58 32.2 C L 07/03/23 16:55 32.1 C L 78 19 104/53 L 100 Room Air 07/03/23 16:50 32.1 C L 77 20 89/59 L 99 Room Air 07/03/23 16:45 77 24 102/52 L 100 Room Air 07/03/23 16:40 88/52 L 07/03/23 16:40 75 20 99/55 L 100 Room Air 07/03/23 16:35 74 22 100 Room Air 07/03/23 16:30 73 20 101/51 L 100 Room Air 07/03/23 16:25 95/51 L 07/03/23 16:25 73 22 95/51 L 100 Room Air 07/03/23 16:20 70 16 93/54 L 100 Room Air 07/03/23 16:18 70 07/03/23 16:17 70 16 99/52 L 100 Room Air 07/03/23 16:10 73 22 100 Room Air 07/03/23 16:00 74 20 100 Room Air 07/03/23 15:40 67 18 100 Room Air 07/03/23 15:36 67 18 103/61 100 Room Air 07/03/23 15:30 134 H 23 100 Room Air 07/03/23 15:20 135 H 26 H 100 Room Air 07/03/23 15:17 131 H 24 100 Room Air 07/03/23 15:08 100 Room Air 07/03/23 15:08 31.8 C L 133 H 20 116/88 100 Room Air Laboratory Results Abnormal lab results 07/03/23 07/03/23 07/03/23 Range/Units 15:17 15:24 15:30 WBC 26.79 H (4.8-10.8) K/ul MCHC 30.9 L (32.0-36.0) g/dL Plt Count 422 H (130-400) K/uL Neut # (Auto) 22.32 H (1.40-6.50) K/uL [place] # (Auto) 1.71 H (0.11-0.59) K/uL Immature Gran # (Auto) 0.41 H (0.01-0.20) K/uL ABG pH (7.35-7.45) ABG pCO2 (35-46) mmHg ABG pO2 (80-95) mmHg ABG O2 Saturation (90-95) % VBG pH < 7.00 L (7.36-7.41) POC Sodium 116 L* (135-144) mmol/L Sodium 118 L* (136-145) mmol/L POC Potassium 6.5 H* (3.3-5.0) mmol/L Potassium 6.6 H* (3.5-5.1) mmol/L POC Chloride 86 L (101-112) mmol/L Chloride 77 L (98-107) mmol/L Carbon Dioxide 3 L* (21-32) mmol/L POC Total CO2 7 L* (24-31) mmol/L Anion Gap 38 H (3-11) POC Anion Gap 30.0 H (16-25) mmol/L POC BUN 93 H (7-18) mg/dl BUN 92 H (6-23) mg/dl Creatinine 3.05 H (0.6-1.2) mg/dl POC Creatinine 3.1 H (0.6-1.3) mg/dl BUN/Creatinine Ratio 30.2 H (10-20) Glucose 1212 H* (70-99(Fasting)) mg/dl POC Glucose > 600 H* (70-99) mg/dl POC Glucose (other) > 700 H* (70-99) mg/dl Lactate 2.9 H* (0.4-2.0) mmol/L Calcium 7.1 L (8.6-10.3) mg/dl POC Ioniz Calcium Farhan 0.93 L (1.12-1.32) mmol/l Phosphorus 14.8 H (2.5-4.9) mg/dl Magnesium 3.0 H (1.7-2.4) mg/dl Alkaline Phosphatase 127 H (34-104) U/L Total Creatine Kinase 849 H (26-192) U/L Total Protein 5.7 L (6.0-8.3) gm/dl Urine Protein (Negative) Urine Glucose (UA) (Negative) Urine Ketones (Negative) Urine Blood (Negative) U Epithel Cells (Auto) (0-5) /lpf U Amphetamin/Meth Scrn (Neg) 07/03/23 07/03/23 07/03/23 Range/Units 15:39 17:00 17:22 WBC (4.8-10.8) K/ul MCHC (32.0-36.0) g/dL Plt Count (130-400) K/uL Neut # (Auto) (1.40-6.50) K/uL [place] # (Auto) (0.11-0.59) K/uL Immature Gran # (Auto) (0.01-0.20) K/uL ABG pH < 7.00 L* (7.35-7.45) ABG pCO2 9 L (35-46) mmHg ABG pO2 184 H (80-95) mmHg ABG O2 Saturation 98.9 H (90-95) % VBG pH (7.36-7.41) POC Sodium (135-144) mmol/L Sodium (136-145) mmol/L POC Potassium (3.3-5.0) mmol/L Potassium (3.5-5.1) mmol/L POC Chloride (101-112) mmol/L Chloride (98-107) mmol/L Carbon Dioxide (21-32) mmol/L POC Total CO2 (24-31) mmol/L Anion Gap (3-11) POC Anion Gap (16-25) mmol/L POC BUN (7-18) mg/dl BUN (6-23) mg/dl Creatinine (0.6-1.2) mg/dl POC Creatinine (0.6-1.3) mg/dl BUN/Creatinine Ratio (10-20) Glucose (70-99(Fasting)) mg/dl POC Glucose (70-99) mg/dl POC Glucose (other) (70-99) mg/dl Lactate (0.4-2.0) mmol/L Calcium (8.6-10.3) mg/dl POC Ioniz Calcium Farhan (1.12-1.32) mmol/l Phosphorus (2.5-4.9) mg/dl Magnesium (1.7-2.4) mg/dl Alkaline Phosphatase (34-104) U/L Total Creatine Kinase (26-192) U/L Total Protein (6.0-8.3) gm/dl Urine Protein 2+ H (Negative) Urine Glucose (UA) 3+ H (Negative) Urine Ketones 2+ H (Negative) Urine Blood 2+ H (Negative) U Epithel Cells (Auto) 20-30 H (0-5) /lpf U Amphetamin/Meth Scrn Pos H (Neg) 07/03/23 07/03/23 Range/Units 17:25 17:42 WBC (4.8-10.8) K/ul MCHC (32.0-36.0) g/dL Plt Count (130-400) K/uL Neut # (Auto) (1.40-6.50) K/uL [place] # (Auto) (0.11-0.59) K/uL Immature Gran # (Auto) (0.01-0.20) K/uL ABG pH (7.35-7.45) ABG pCO2 (35-46) mmHg ABG pO2 (80-95) mmHg ABG O2 Saturation (90-95) % VBG pH (7.36-7.41) POC Sodium (135-144) mmol/L Sodium 125 L (136-145) mmol/L POC Potassium (3.3-5.0) mmol/L Potassium (3.5-5.1) mmol/L POC Chloride (101-112) mmol/L Chloride 90 L (98-107) mmol/L Carbon Dioxide 2 L* (21-32) mmol/L POC Total CO2 (24-31) mmol/L Anion Gap 33 H (3-11) POC Anion Gap (16-25) mmol/L POC BUN (7-18) mg/dl BUN 87 H (6-23) mg/dl Creatinine 2.71 H D (0.6-1.2) mg/dl POC Creatinine (0.6-1.3) mg/dl BUN/Creatinine Ratio 32.1 H (10-20) Glucose 938 H* (70-99(Fasting)) mg/dl POC Glucose > 600 H* (70-99) mg/dl POC Glucose (other) (70-99) mg/dl Lactate (0.4-2.0) mmol/L Calcium 6.6 L (8.6-10.3) mg/dl POC Ioniz Calcium Farhan (1.12-1.32) mmol/l Phosphorus 11.0 H (2.5-4.9) mg/dl Magnesium 2.5 H (1.7-2.4) mg/dl Alkaline Phosphatase (34-104) U/L Total Creatine Kinase (26-192) U/L Total Protein (6.0-8.3) gm/dl Urine Protein (Negative) Urine Glucose (UA) (Negative) Urine Ketones (Negative) Urine Blood (Negative) U Epithel Cells (Auto) (0-5) /lpf U Amphetamin/Meth Scrn (Neg) Diagnostic Findings Chest X-Ray 07/03/23 15:25 XR chest 1V portable HISTORY: 43 years-old Female SOB acute shortness of breath COMPARISON: 05/29/2023 TECHNIQUE: AP view of the chest FINDINGS: Cardiomediastinal and hilar silhouettes are within normal limits. No pneumothorax, pleural effusion or airspace consolidation. The bones appear grossly intact. IMPRESSION: No acute process. ACT 112: Negative or not required by law. The above report was generated using voice recognition software. It may contain grammatical, syntax or spelling errors. Electronically signed by: Saud Zavaleta M.D. 07/03/2023 3:[address] 07/03/23 15:25 CT head/brain wo con CLINICAL HISTORY: 43 years-old Female with unresponsive. Acutely altered mental status. TECHNIQUE: Multiple axial CT images of the head were obtained without contrast. A dose lowering technique was utilized adhering to the principles of ALARA. CT DOSE: 547.75 mGy.cm COMPARISON: 05/01/2019. FINDINGS: No acute intracranial hemorrhage, midline shift, intracranial mass, hydrocephalus, territorial ischemia or abnormal extra-axial collection. Limited exam secondary to positioning and motion. The calvarium is intact. There are a few partially calcified subcentimeter subcutaneous nodules in the occipital scalp. The paranasal sinuses, mastoid air cells, and middle ear cavities are clear. IMPRESSION: No acute intracranial abnormality identified. ACT 112: Negative or not required by law. The above report was generated using voice recognition software. It may contain grammatical, syntax or spelling errors. Electronically signed by: Saud Zavaleta M.D. 07/03/2023 4:24 PM Medications Administered Insulin Human Regular 250 (units/ Sodium Chloride) 250 mls @ 5 mls/hr IV .Q24H JEF; Protocol Stop: 08/02/23 15:29 Last Titration: 07/03/23 17:49 Dose: 5 units/hr, 5 mls/hr Documented By: DRU Co-signed By: BRIAN Admin: 07/03/23 16:29 Dose: 5 units/hr, 5 mls/hr Documented By: DRU Co-signed By: ML Sodium Chloride (Nss) 1,000 mls @ 999 mls/hr IV .Q1H1M JEF Stop: 07/03/23 19:30 Last Infusion: 07/03/23 18:35 Dose: Infused Documented By: Admin: 07/03/23 17:37 Dose: 999 mls/hr Documented By: Infusion: 07/03/23 17:36 Dose: Infused Documented By: Admin: 07/03/23 15:23 Dose: 999 mls/hr Documented By: DRU Discontinued Medications Calcium Gluconate (Calcium Gluconate 1000 Mg/60 Ml Nss) Confirm Administered Dose 1,000 mg IV .STK-MED ONE Stop: 07/03/23 15:21 Last Admin: 07/03/23 16:37 Dose: Not Given Documented By: DRU Droperidol (Droperidol 5 Mg/2 Ml Vial) Confirm Administered Dose 5 mg .ROUTE .STK-MED ONE Stop: 07/03/23 16:09 Last Admin: 07/03/23 16:37 Dose: Not Given Documented By: DRU Droperidol (Droperidol 5 Mg/2 Ml Vial) 1.25 mg IV ONE STA Stop: 07/03/23 16:26 Last Admin: 07/03/23 16:14 Dose: 1.25 mg Documented By: DRU Insulin Human Regular 5 units/ (Syringe) 5 mls @ 5 mls/min IV NOW ONE Stop: 07/03/23 15:46 Last Admin: 07/03/23 16:31 Dose: 5 mls/min Documented By: DRU Co-signed By: BRIAN Calcium Gluconate () 1,000 mg in 60 mls @ 240 mls/hr IV NOW STA Stop: 07/03/23 16:39 Last Infusion: 07/03/23 16:41 Dose: Infused Documented By: Admin: 07/03/23 15:23 Dose: 240 mls/hr Documented By: DRU Calcium Gluconate 1,000 mg/ (Sodium Chloride) 60 mls @ 240 mls/hr IV 1800 ONE Stop: 07/03/23 18:14 Last Infusion: 07/03/23 18:35 Dose: Infused Documented By: Admin: 07/03/23 18:15 Dose: 240 mls/hr Documented By: DRU Coding Level of Care Code 81590 CRITICAL CARE 1ST 30-74M Diagnoses DKA (diabetic ketoacidosis) E13.10 Diabetes mellitus complication detail: without coma Diabetes mellitus type: other specified (including VIANNEY) Encephalopathy G93.40 High anion gap metabolic acidosis E87.29 SUZY (acute kidney injury) N17.9 Leukocytosis D72.829 Leukocytosis type: unspecified GERD (gastroesophageal reflux disease) K21.9 Substance abuse F19.10 Asthma J45.909 (1) DKA (diabetic ketoacidosis) Diabetes mellitus complication detail: without coma Diabetes mellitus type: other specified (including VIANNEY) Qualified Code(s): E13.10 - Other specified diabetes mellitus with ketoacidosis without coma (5) Leukocytosis Leukocytosis type: unspecified Qualified Code(s): D72.829 - Elevated white blood cell count, unspecified
[2023-07-03 19:28] LABS: Magnesium 2.5 mg/dl (1.7-2.4)
[2023-07-03] MEDS: PLASMA-LYTE A 1,000 ML IV ONE ×2 (19:32→23:12)
[2023-07-03] MEDS ORDERED: ALBUTEROL HFA 8 GM INHALER INH PRN (19:32)
[2023-07-03 19:34] LABS: Phosphorus 9.8 mg/dl (2.5-4.9)
[2023-07-03 19:46] LABS: Acetaminophen < 3 ug/ml (10-30); Salicylate < 3.0 mg/dl (3.0-30)
[2023-07-03] MEDS: STAT IV Infusion **Titration per Protocol STA (19:46)
[2023-07-03] MEDS: INSULIN ASPART PER UNIT CHARGE SC SCH (19:46)
[2023-07-03] MEDS: HEPARIN SOD 5,000 UNIT/0.5 ML VIAL SQ SCH (20:55)
[2023-07-03 21:36] LABS: BUN Creatinine Ratio 36.4 (10-20); Calcium 6.8 mg/dl (8.6-10.3); Creatinine Clr Calc Pharmacy 23.9 ml/min; Est GFR (African American) 27.6 ml/min; Est GFR (Non-African American) 23.9 ml/min; Magnesium 2.4 mg/dl (1.7-2.4); Phosphorus 7.6 mg/dl (2.5-4.9); Potassium 4.7 mmol/L (3.5-5.1)
[2023-07-04 02:43] LABS: HCO3 VBG 15 mmol/L; PCO2 VBG 32 mmHg (38-50); PO2 VBG 39 mmHg; pH VBG 7.29 (7.36-7.41)
[2023-07-04 03:02] LABS: Magnesium 2.5 mg/dl (1.7-2.4); Potassium 3.9 mmol/L (3.5-5.1)
[2023-07-04 03:20] LABS: BUN Creatinine Ratio 40.8 (10-20); Creatinine Clr Calc Pharmacy 31.4 ml/min; Est GFR (African American) 38.5 ml/min; Est GFR (Non-African American) 33.2 ml/min
[2023-07-04] MEDS: POTASSIUM CHLORIDE 20 MEQ/15 ML UDC PO STA (03:33)
[2023-07-04] MEDS ORDERED: STAT IV Infusion **Titration per Protocol STA (04:09)
[2023-07-04] MEDS ORDERED: INSULIN REGULAR 250 UNITS in SODIUM CHLORIDE 0.9% 247.5 ML IV SCH (04:15)
[2023-07-04] MEDS: PENDING D5 1/2NS+20mEq KCL IVF SCH (06:38)
[2023-07-04] MEDS: D5W AND 1/2NSS + 20MEQ KCL 20 MEQ/1,000 ML BAG IV SCH (06:47)
--- NOTE | 2023-07-04 07:20 | Hospitalist Progress Note ---
Date of Service July 04, 2023 Assessment & Plan (1) DKA (diabetic ketoacidosis): Plan: DKA, type I DM Patient was found down, CK is elevated 849 mild rhabdo Patient started on insulin drip, calcium gluconate given -Insulin gtt. DKA protocol started on D5, gap closed, drip titrated to off, glargine given Potassium normalized on recheck, Patient has multiple admissions for DKA and unfortunately multiple AMA discharges. . (2) Hyperkalemia: Plan: Hyperkalemia With DKA, profound volume contraction, and ARF EKG with peaked T waves, sinus tachycardia Received calcium gluconate in ER resolved (3) Unresponsive: Plan: Unresponsive/obtunded, hypothermic With profound volume contraction, DKA On reassessment patient is beginning to have improved mentation. Still lethargic (4) GERD (gastroesophageal reflux disease): Plan: History of GERD/hematemesis On hospital admission 05/02/2023 patient had dark coffee-ground emesis on her initial evaluation with a history of GERD and daily aspirin use She was continued on PPI twice daily at that time however left AMA. PPI twice daily resumed (5) Substance abuse: Plan: History of drug use: Patient denies history of drug use, has had UDS positive for amphetamines. UDS on admit positive for amphetamine. Tylenol/aspirin/alcohol level pending Tobacco abuse. Cessation encouraged, nicotine patch as needed Plan DVT prophylaxis: Heparin SQ CODE STATUS: Full code Admission and Anticipated Discharge Date Admission Date: July 03, 2023 Subjective pt is lethargic but does respond to stimuli titrated off insulin gtt still not awake enough to eat Physical Exam Physical Exam: pt is tachypneic, lungs are clear car is tachy also regular Results & Data Results & Data Vital Signs (Past 12 Hours) Vital Signs Temp Pulse Pulse Resp BP BP Pulse Ox 07/04/23 06:00 163/78 H 07/04/23 06:00 98.2 F 112 H 18 100 07/04/23 05:30 178/78 H 07/04/23 05:30 98.2 F 105 H 15 100 07/04/23 05:00 157/79 H 07/04/23 05:00 98.2 F 114 H 17 100 07/04/23 04:30 168/74 H 07/04/23 04:30 98.1 F 117 H 18 100 02/04/24 04:00 149/74 H 07/04/23 04:00 98.1 F 111 H 19 100 07/04/23 03:32 117/66 07/04/23 03:32 98.4 F 111 H 30 H 100 07/04/23 03:00 172/71 H 07/04/23 03:00 98.4 F 114 H 21 100 07/04/23 02:30 139/68 07/04/23 02:30 98.4 F 112 H 24 100 07/04/23 02:00 165/80 H 07/04/23 02:00 98.6 F 113 H 18 100 07/04/23 01:30 156/72 H 07/04/23 01:30 99.0 F 117 H 17 100 07/04/23 01:00 111/59 L 07/04/23 01:00 99.3 F 116 H 18 100 07/04/23 00:30 117/59 L 07/04/23 00:30 99.1 F 119 H 19 100 07/04/23 00:00 120 H 07/04/23 00:00 144/72 H 07/04/23 00:00 99.1 F 119 H 18 100 07/03/23 23:30 138/63 07/03/23 23:30 99.1 F 121 H 23 100 07/03/23 23:00 105/59 L 07/03/23 23:00 99.0 F 119 H 21 100 07/03/23 22:30 103/58 L 07/03/23 22:30 98.6 F 113 H 22 100 07/03/23 22:00 113/56 L 07/03/23 22:00 98.1 F 112 H 22 100 07/03/23 21:30 114/61 07/03/23 21:30 97.2 F L 113 H 20 100 07/03/23 21:00 96.3 F L 108 H 22 100 07/03/23 20:30 111/62 07/03/23 20:30 95.5 F L 105 H 26 H 100 07/03/23 20:15 120/59 L 07/03/23 20:15 95.7 F L 103 H 29 H 100 07/03/23 20:00 104/54 L 07/03/23 20:00 96.1 F L 100 H 27 H 100 07/03/23 19:51 96.3 F L 96 H 27 H 100 07/03/23 19:51 87/49 L 07/03/23 19:32 07/03/23 19:32 99 H 07/03/23 19:32 96.4 F L 103 H 24 91/54 L 100 07/03/23 19:25 91/54 L 07/03/23 19:25 92 H 20 100 Pulse Ox O2 Del Method O2 Del Method 07/04/23 06:00 07/04/23 06:00 07/04/23 05:30 07/04/23 05:30 07/04/23 05:00 07/04/23 05:00 07/04/23 04:30 07/04/23 04:30 07/04/23 04:00 07/04/23 04:00 07/04/23 03:32 07/04/23 03:32 07/04/23 03:00 07/04/23 03:00 07/04/23 02:30 07/04/23 02:30 07/04/23 02:00 07/04/23 02:00 07/04/23 01:30 07/04/23 01:30 07/04/23 01:00 07/04/23 01:00 07/04/23 00:30 07/04/23 00:30 07/04/23 00:00 07/04/23 00:00 07/04/23 00:00 07/03/23 23:30 07/03/23 23:30 07/03/23 23:00 07/03/23 23:00 07/03/23 22:30 07/03/23 22:30 07/03/23 22:00 07/03/23 22:00 07/03/23 21:30 07/03/23 21:30 07/03/23 21:00 07/03/23 20:30 07/03/23 20:30 07/03/23 20:15 07/03/23 20:15 07/03/23 20:00 07/03/23 20:00 07/03/23 19:51 07/03/23 19:51 07/03/23 19:32 100 Room Air 07/03/23 19:32 07/03/23 19:32 Room Air 07/03/23 19:25 07/03/23 19:25 Laboratory Results review vbg review chemistry PG Care Time/CCT Total # of Minutes Spent Total Time Spent with Patient: Total time spent is greater than 50% in coordination of care (as documented) at patient's floor/unit and/or counseling patient: Coding Level of Care Code 11908 SUB INP/OBS CARE 3/50MIN Diagnoses DKA (diabetic ketoacidosis) E13.10 Diabetes mellitus complication detail: without coma Diabetes mellitus type: other specified (including VIANNEY) Hyperkalemia E87.5 Unresponsive R41.89 GERD (gastroesophageal reflux disease) K21.9 Substance abuse F19.10 (1) DKA (diabetic ketoacidosis) Diabetes mellitus complication detail: without coma Diabetes mellitus type: other specified (including VIANNEY) Qualified Code(s): E13.10 - Other specified diabetes mellitus with ketoacidosis without coma
[2023-07-04] MEDS ORDERED: INSULIN ASPART PER UNIT CHARGE SC SCH (07:30)
[2023-07-04 08:03] LABS: Magnesium 2.5 mg/dl (1.7-2.4); Phosphorus 2.1 mg/dl (2.5-4.9)
--- NOTE | 2023-07-04 08:09 | Critical Care Progress Note ---
Date of Service July 04, 2023 Assessment & Plan (1) DKA (diabetic ketoacidosis): (2) Encephalopathy: (3) High anion gap metabolic acidosis: (4) SUZY (acute kidney injury): (5) Leukocytosis: (6) GERD (gastroesophageal reflux disease): (7) Substance abuse: (8) Asthma: Plan Reason Critically Ill: 43 YOF found down at home for unkown period of time with empty insulin pump. Admitted to ICU for severe acidosis, hypovolemia, and elevated AGAP and blood glucose most consistent with severe DKA at this time. 24-hour events: Patient was admitted to the ICU. She is been maintained on insulin infusion with electrolyte repletion overnight. She is now awake. Her gap is closing but not yet closed. Recommendations: Neuro -encephalopathy, likely multifactorial due to combinations of severe me tabolic derangements and severe hyperglycemia in the setting of methamphetamine abuse. Appears to be clearing currently. Continue to follow clinically. Cardiac -sinus tachycardia: Likely continued volume depletion. Will give additional 2 L LR this morning. Respiratory -history of asthma: Continue outpatient inhalers and short acting beta agonists as needed. GI -continue PPI. RENAL/LYTES -acute kidney injury, improving this morning but not yet back to baseline. Electrolytes being repleted. -discontinue Cardenas catheter ENDO - severe DKA: Anion gap improving but not yet closed. Continue insulin drip until it is closed. Will then transition to subcutaneous insulin. At some point can consider restarting her insulin pump. Diabetic nurse education and close follow-up with primary care provider recommended. HEME -leukocytosis, likely reactive. ID -no signs of acute infection. No antibiotics currently. LINES/IV ACCESS - PIV, Cardenas Continue use of these lines DVT PROPHYLAXIS -SCDS, Heparin 5000 units sub q q12 DISPO: Can likely transition out of the ICU given her favorable clinical response. Will touch base with hospitalist. Critical care will sign off when she is downgraded out of the ICU Admission and Anticipated Discharge Date Admission Date: July 03, 2023 Subjective Patient seen and examined. EMR reviewed. Discussed with the critical care NERIS and bedside critical care nurse and on multidisciplinary rounds. Patient's encephalopathy is clearing. She is now awake. She is eating. She think she may have run out of insulin and her insulin pump at home. She is not complaining of any chest pain or palpitations. No abdominal pain. No nausea or vomiting. Review of Systems Review of Systems: All systems reviewed & are unremarkable except as noted in Subjective Physical Exam Constitutional: WD/WN, vitals as above Neck: trachea midline, no thyromegaly Respiratory: normal respiratory effort, lungs clear to auscultation Cardiovascular: RRR, no murmur, no edema Gastrointestinal (Abdomen): normal bowel sounds, soft, nontender, no hepatosplenomegaly Musculoskeletal: Extremities: extremities normal to inspection Skin: no rashes, warm and dry Neurologic: Nonfocal exam Lymphatic: no cervical lymphadenopathy Results & Data Results & Data Vital Signs (Past 12 Hours) Vital Signs Temp Pulse Resp BP Pulse Ox 07/04/23 07:00 182/81 H 07/04/23 07:00 36.8 C 101 H 17 100 07/04/23 06:30 157/79 H 07/04/23 06:30 36.8 C 116 H 26 H 100 07/04/23 06:00 163/78 H 07/04/23 06:00 36.8 C 112 H 18 100 07/04/23 05:30 178/78 H 07/04/23 05:30 36.8 C 105 H 15 100 07/04/23 05:00 157/79 H 07/04/23 05:00 36.8 C 114 H 17 100 07/04/23 04:30 168/74 H 07/04/23 04:30 36.7 C 117 H 18 100 07/04/23 04:00 149/74 H 07/04/23 04:00 36.7 C 111 H 19 100 07/04/23 03:32 117/66 07/04/23 03:32 36.9 C 111 H 30 H 100 07/04/23 03:00 172/71 H 07/04/23 03:00 36.9 C 114 H 21 100 07/04/23 02:30 139/68 07/04/23 02:30 36.9 C 112 H 24 100 07/04/23 02:00 165/80 H 07/04/23 02:00 37.0 C 113 H 18 100 07/04/23 01:30 156/72 H 07/04/23 01:30 37.2 C 117 H 17 100 07/04/23 01:00 111/59 L 07/04/23 01:00 37.4 C 116 H 18 100 07/04/23 00:30 117/59 L 07/04/23 00:30 37.3 C 119 H 19 100 07/04/23 00:00 120 H 07/04/23 00:00 144/72 H 07/04/23 00:00 37.3 C 119 H 18 100 07/03/23 23:30 138/63 07/03/23 23:30 37.3 C 121 H 23 100 07/03/23 23:00 105/59 L 07/03/23 23:00 37.2 C 119 H 21 100 07/03/23 22:30 103/58 L 07/03/23 22:30 37.0 C 113 H 22 100 07/03/23 22:00 113/56 L 07/03/23 22:00 36.7 C 112 H 22 100 07/03/23 21:30 114/61 07/03/23 21:30 36.2 C L 113 H 20 100 07/03/23 21:00 35.7 C L 108 H 22 100 07/03/23 20:30 111/62 07/03/23 20:30 35.3 C L 105 H 26 H 100 07/03/23 20:15 120/59 L 07/03/23 20:15 35.4 C L 103 H 29 H 100 07/03/23 20:00 104/54 L 07/03/23 20:00 35.6 C L 100 H 27 H 100 Critical Care Results & Data Vital Signs (Past 12 Hours) Vital Signs Temp Pulse Resp BP Pulse Ox 07/04/23 07:00 182/81 H 07/04/23 07:00 36.8 C 101 H 17 100 07/04/23 06:30 157/79 H 07/04/23 06:30 36.8 C 116 H 26 H 100 07/04/23 06:00 163/78 H 07/04/23 06:00 36.8 C 112 H 18 100 07/04/23 05:30 178/78 H 07/04/23 05:30 36.8 C 105 H 15 100 07/04/23 05:00 157/79 H 07/04/23 05:00 36.8 C 114 H 17 100 07/04/23 04:30 168/74 H 07/04/23 04:30 36.7 C 117 H 18 100 07/04/23 04:00 149/74 H 07/04/23 04:00 36.7 C 111 H 19 100 07/04/23 03:32 117/66 07/04/23 03:32 36.9 C 111 H 30 H 100 07/04/23 03:00 172/71 H 07/04/23 03:00 36.9 C 114 H 21 100 07/04/23 02:30 139/68 07/04/23 02:30 36.9 C 112 H 24 100 07/04/23 02:00 165/80 H 07/04/23 02:00 37.0 C 113 H 18 100 07/04/23 01:30 156/72 H 07/04/23 01:30 37.2 C 117 H 17 100 07/04/23 01:00 111/59 L 07/04/23 01:00 37.4 C 116 H 18 100 07/04/23 00:30 117/59 L 07/04/23 00:30 37.3 C 119 H 19 100 07/04/23 00:00 120 H 07/04/23 00:00 144/72 H 07/04/23 00:00 37.3 C 119 H 18 100 07/03/23 23:30 138/63 07/03/23 23:30 37.3 C 121 H 23 100 07/03/23 23:00 105/59 L 07/03/23 23:00 37.2 C 119 H 21 100 07/03/23 22:30 103/58 L 07/03/23 22:30 37.0 C 113 H 22 100 07/03/23 22:00 113/56 L 07/03/23 22:00 36.7 C 112 H 22 100 07/03/23 21:30 114/61 07/03/23 21:30 36.2 C L 113 H 20 100 07/03/23 21:00 35.7 C L 108 H 22 100 07/03/23 20:30 111/62 07/03/23 20:30 35.3 C L 105 H 26 H 100 07/03/23 20:15 120/59 L 07/03/23 20:15 35.4 C L 103 H 29 H 100 Lab & Micro Results (Past 24 Hours) RBC 4.28 M/uL (4.20-5.40) 07/03/23 WBC 26.79 K/ul (4.8-10.8) H 07/03/23 Hgb 12.3 g/dl (12.0-16.0) 07/03/23 Hct 39.8 % (37.0-47.0) 07/03/23 MCV 93.0 fL (80.0-100.0) 07/03/23 MCH 28.7 pg (25.0-34.0) 07/03/23 MCHC 30.9 g/dL (32.0-36.0) L 07/03/23 RDW Standard Deviation 44.6 fL (36.4-46.3) 07/03/23 RDW Coefficient of Variation 13.2 % (11.5-14.5) 07/03/23 Plt Count 422 K/uL (130-400) H 07/03/23 MPV 11.3 fL (9.4-12.4) 07/03/23 Neutrophils (%) (Auto) 83.4 % 07/03/23 Lymphocytes (%) (Auto) 8.3 % 07/03/23 Monocytes # (Auto) 1.71 K/uL (0.11-0.59) H 07/03/23 Eosinophils # (Auto) 0.01 K/uL (0.00-0.50) 07/03/23 Immature Granulocyte % (Auto) 1.5 % 07/03/23 Neutrophils # (Auto) 22.32 K/uL (1.40-6.50) H 07/03/23 Lymphocytes # (Auto) 2.22 K/uL (1.20-3.40) 07/03/23 Monocytes # (Auto) 1.71 K/uL (0.11-0.59) H 07/03/23 Eosinophils # (Auto) 0.01 K/uL (0.00-0.50) 07/03/23 Basophils # (Auto) 0.12 K/uL (0.00-0.20) 07/03/23 Immature Granulocyte # (Auto) 0.41 K/uL (0.01-0.20) H 07/03 Echinocytes 2+ 07/03/23 Na 139 mmol/L (136-145) 07/04/23 K 3.9 mmol/L (3.5-5.1) 07/04/23 Cl 106 mmol/L (98-107) 07/04/23 CO2 14 mmol/L (21-32) L 07/04/23 Anion Gap 19 (3-11) H 07/04/23 BUN 75 mg/dl (6-23) H 07/04/23 Creatinine 1.84 mg/dl (0.6-1.2) H 07/04/23 Estimated GFR ( Amer) 38.5 ml/min 07/04/23 Estimated GFR (Non-Af Amer) 33.2 ml/min 07/04/23 BUN/Creatinine Ratio 40.8 (10-20) H 07/04/23 Glu 419 mg/dl (70-99(Fasting)) H* 07/04/23 Ca 7.0 mg/dl (8.6-10.3) L 07/04/23 Phosphorus Level 2.1 mg/dl (2.5-4.9) L 07/04/23 Total Bilirubin 0.3 mg/dl (0.2-1.0) 07/03/23 Direct Bilirubin 0.1 mg/dl (0-0.2) 07/03/23 AST 35 U/L (13-39) 07/03/23 ALT 21 U/L (7-52) 07/03/23 Alkaline Phosphatase 127 U/L (34-104) H 07/03/23 TP 5.7 gm/dl (6.0-8.3) L 07/03/23 Albumin 3.7 gm/dl (3.4-5.0) 07/03/23 Mg 2.5 mg/dl (1.7-2.4) H 07/04/23 07:22 Calcium Level 7.0 mg/dl (8.6-10.3) L 07/04/23 02:32 Venous Blood pH 7.42 (7.36-7.41) H 07/04/23 07:22 Venous Blood Partial Pressure CO2 32 mmHg (38-50) L 07/04/23 02 :32 Venous Blood Partial Pressure O2 39 mmHg 07/04/23 02:32 Venous Blood HCO3 15 mmol/L 07/04/23 02:32 Venous Blood Base Excess -10.0 mEq/L 07/04/23 02:32 Venous Blood Oxygen Saturation 63.0 % 07/04/23 02:32 Arterial Blood pH < 7.00 (7.35-7.45) L* 07/03/23 17:22 Arterial Blood Partial Pressure CO2 9 mmHg (35-46) L 07/03/23 1 7:22 Arterial Blood Partial Pressure O2 184 mmHg (80-95) H 07/03/23 17:22 Arterial Blood HCO3 TNP 07/03/23 17:22 Arterial Blood Base Excess TNP 07/03/23 17:22 Arterial Blood Oxygen Saturation 98.9 % (90-95) H 07/03/23 17:2 2 Blood Gas Oxygen Given ROOM AIR 07/03/23 17:22 Moo Test Pos (Pos) 07/03/23 17:22 Diagnostic Findings (Past 24 Hours) Chest X-Ray 07/03/23 15:25 XR chest 1V portable HISTORY: 43 years-old Female SOB acute shortness of breath COMPARISON: 05/29/2023 TECHNIQUE: AP view of the chest FINDINGS: Cardiomediastinal and hilar silhouettes are within normal limits. No pneumothorax, pleural effusion or airspace consolidation. The bones appear grossly intact. IMPRESSION: No acute process. ACT 112: Negative or not required by law. The above report was generated using voice recognition software. It may contain grammatical, syntax or spelling errors. Electronically signed by: Saud Zavaleta M.D. 07/03/2023 3:[address] 07/03/23 15:25 CT head/brain wo con CLINICAL HISTORY: 43 years-old Female with unresponsive. Acutely altered mental status. TECHNIQUE: Multiple axial CT images of the head were obtained without contrast. A dose lowering technique was utilized adhering to the principles of ALARA. CT DOSE: 547.75 mGy.cm COMPARISON: 05/01/2019. FINDINGS: No acute intracranial hemorrhage, midline shift, intracranial mass, hydrocephalus, territorial ischemia or abnormal extra-axial collection. Limited exam secondary to positioning and motion. The calvarium is intact. There are a few partially calcified subcentimeter subcutaneous nodules in the occipital scalp. The paranasal sinuses, mastoid air cells, and middle ear cavities are clear. IMPRESSION: No acute intracranial abnormality identified. ACT 112: Negative or not required by law. The above report was generated using voice recognition software. It may contain grammatical, syntax or spelling errors. Electronically signed by: Saud Zavaleta M.D. 07/03/2023 4:24 PM I & O Totals 24 Hours 07/03/23 07/04/23 07/05/23 06:59 06:59 06:59 Intake Total 6225.060 / 6225.060 6.533 / 6.533 Output Total 3505 / 3505 Balance 2720.060 / 2720.060 6.533 / 6.533 Cumulative 07/03/23 14:57 thru 07/04/23 07:45 Intake Total 6231.593 Output Total 3505 Balance 2726.593 RT Ventilator Mngmt (Last Documented) Ventilator Ordered Settings Respiratory Rate 17 07/04/23 07:00 Ventilator - PT Measurements Respiratory Rate 17 Coding Level of Care Code 32542 SUB INP/OBS CARE 3/50MIN Diagnoses DKA (diabetic ketoacidosis) E13.10 Diabetes mellitus complication detail: without coma Diabetes mellitus type: other specified (including VIANNEY) Encephalopathy G93.40 High anion gap metabolic acidosis E87.29 SUZY (acute kidney injury) N17.9 Leukocytosis D72.829 Leukocytosis type: unspecified GERD (gastroesophageal reflux disease) K21.9 Substance abuse F19.10 Asthma J45.909 (1) DKA (diabetic ketoacidosis) Diabetes mellitus complication detail: without coma Diabetes mellitus type: other specified (including VIANNEY) Qualified Code(s): E13.10 - Other specified diabetes mellitus with ketoacidosis without coma (5) Leukocytosis Leukocytosis type: unspecified Qualified Code(s): D72.829 - Elevated white blood cell count, unspecified
[2023-07-04] MEDS: LACTATED RINGER'S 2,000 ML IV ONE (08:22)
[2023-07-04] MEDS ORDERED: ACETAMINOPHEN 325 MG TAB PO PRN (11:18)
[2023-07-04 11:19] LABS: BUN Creatinine Ratio 48.5 (10-20); Calcium 6.8 mg/dl (8.6-10.3); Creatinine Clr Calc Pharmacy 58.9 ml/min; Est GFR (African American) 83.5 ml/min; Potassium 3.6 mmol/L (3.5-5.1)
[2023-07-04] MEDS: LANTUS PER UNIT CHARGE SC ONE (12:36)
--- NOTE | 2023-07-04 13:23 | Electrocardiogram Report ---
Test Reason : Blood Pressure : / mmHG Vent. Rate : 084 BPM Atrial Rate : 084 BPM P-R Int : 170 ms QRS Dur : 104 ms QT Int : 464 ms P-R-T Axes : 086 -30 058 degrees QTc Int : 548 ms Sinus rhythm with occasional Premature ventricular complexes Left axis deviation Old Septal infarct (cited on or before 16-FEB-2021) Prolonged QT Chronically peaked T waves Abnormal ECG When compared with ECG of 11-JUL-2021 19:42, Premature ventricular complexes are now Present QRS duration has increased T wave amplitude has increased in Anterior leads Confirmed by Rodrigo Marroquin ([id number]) on 07/04/2023 1:23:20 PM Referred By: REFERRED SELF Confirmed By:Rodrigo Marroquin
--- NOTE | 2023-07-04 14:50 | Pharmacy Report ---
Pharmacy Glycemic Short Note 2 - Date of Service July 04, 2023 - Glycemic Short BSG Results (Last 24 hours): 07/03/23 07/03/23 07/03/23 15:17 15:24 15:30 Glucose 1212 H* POC Glucose > 600 H* POC Glucose (other) > 700 H* 07/03/23 07/03/23 07/03/23 17:25 17:42 18:54 Glucose 938 H* POC Glucose > 600 H* > 600 H* POC Glucose (other) 07/03/23 07/03/23 07/03/23 19:04 19:36 19:55 Glucose Cancelled 792 H* POC Glucose > 600 H* POC Glucose (other) 07/03/23 07/03/23 07/04/23 21:02 22:22 00:02 Glucose 749 H* 651 H* POC Glucose 477 H* POC Glucose (other) 07/04/23 07/04/23 07/04/23 01:03 02:04 02:32 Glucose 419 H* POC Glucose 460 H* 402 H* POC Glucose (other) 07/04/23 07/04/23 07/04/23 03:03 04:04 05:02 Glucose POC Glucose 329 H* 380 H* 314 H* POC Glucose (other) 07/04/23 07/04/23 07/04/23 06:07 07:09 08:47 Glucose POC Glucose 266 H 184 H 255 H POC Glucose (other) 07/04/23 07/04/23 07/04/23 09:53 10:48 11:02 Glucose 245 H POC Glucose 246 H 257 H POC Glucose (other) 07/04/23 07/04/23 07/04/23 12:20 13:33 14:31 Glucose POC Glucose 217 H 183 H 171 H POC Glucose (other) OUTPATIENT ANTIDIABETIC REGIMEN: * Insulin pump ASSESSMENT: * 43 year old found down at home for unknown period of time with empty insulin pump. Admitted to ICU for DKA and started on insulin drip. Anion gap closing this AM. Insulin drip running at ~4 units/hr this AM. Patient also with dextrose fluids continued per DKA protocol at 175 ml/hr. Discussed with RN and patient unable to provide insulin doses she receives via insulin pump at this time. No history from recent admissions regarding settings. * Reasonable to start basal insulin now. Insulin drip running at ~5 unit/hr later this AM which is equivalent to ~120 units/day of insulin. Will reduce by ~50% due to IVF with dextrose and another ~25% due to limited oral intake and give 45 units x 1 now PLAN FOR INPATIENT GLYCEMIC CONTROL: * Continue insulin drip and overlap with basal insulin for 2-4 hours until BSGs stable * Basal insulin * Lantus 45 units x 1 * Bolus insulin * NovoLog per scale ACHS or Q6hrs while NPO * Goal Range: Low 110 mg/dL - High 140 mg/dL * Correction Factor: 30 mg/dL/unit * Nutritional / Prandial insulin per carb ratio of 1 unit per 10 grams CHO consumed
[2023-07-04] MEDS: SODIUM CHLORIDE 0.9% 1,000 ML IV SCH (16:34)
[2023-07-04 19:54] LABS: BUN Creatinine Ratio 38.4 (10-20); Calcium 6.8 mg/dl (8.6-10.3); Creatinine Clr Calc Pharmacy 78.3 ml/min; Est GFR (African American) 117.7 ml/min; Est GFR (Non-African American) 101.6 ml/min; Potassium 3.8 mmol/L (3.5-5.1)
[2023-07-04] MEDS: INSULIN ASPART PER UNIT CHARGE SC SCH (20:03)
[2023-07-04 23:11] LABS: BUN Creatinine Ratio 30.1 (10-20); Calcium 6.7 mg/dl (8.6-10.3); Creatinine Clr Calc Pharmacy 78.3 ml/min; Est GFR (African American) 117.7 ml/min; Est GFR (Non-African American) 101.6 ml/min; Potassium 3.4 mmol/L (3.5-5.1)
[2023-07-05] MEDS ORDERED: SODIUM PHOSPHATE 3 MMOL/1 ML INFUSION IV STA (06:58)
[2023-07-05] MEDS: SODIUM PHOSPHATE 15 MMOL in SODIUM CHLORIDE 0.9% 250 ML IV ONE (07:55)
[2023-07-05] MEDS: LANTUS PER UNIT CHARGE SC ONE (09:48)
--- NOTE | 2023-07-05 12:27 | Pharmacy Report ---
Pharmacy Glycemic Short Note 2 - Date of Service July 05, 2023 - Glycemic Short BSG Results (Last 24 hours): 07/03/23 07/04/23 07/04/23 15:30 12:20 13:33 Glucose 1212 H* POC Glucose 217 H 183 H 07/04/23 07/04/23 07/04/23 14:31 15:29 15:31 Glucose Cancelled POC Glucose 171 H 537 H* 125 H 07/04/23 07/04/23 07/04/23 16:31 19:08 19:16 Glucose 226 H POC Glucose 130 H 231 H 07/04/23 07/04/23 07/05/23 19:18 22:40 00:21 Glucose 213 H POC Glucose 239 H 174 H 07/05/23 07/05/23 07/05/23 04:05 07:59 11:37 Glucose POC Glucose 223 H 258 H 104 H OUTPATIENT ANTIDIABETIC REGIMEN: * Insulin pump (Lispro): * Basal rate: 15.55 units/day * Carb ratio: 1 unit per 15 grams CHOs consumed ASSESSMENT: 07/05 * BSGs acceptable over the last 24 hrs * Patient received a larger basal dose yesterday AM and transitioned off the insulin drip. IV dextrose containing fluids were continued due to concerns for hypoglycemia risks due to size of insulin dose as well as poor PO intake. * This AM, Lantus was dosed using patient weight and factored in stopping dextrose containing IVFs. * I was able to speak with the patient this afternoon regarding her insulin pump. We interrogated her pump at bedside and determined what her basal rates have been over the last week and she was able to provide info regarding her carb counting practices. * Her BSGs are trending down at this time, the dose of basal insulin delivered this AM is greater than what she typically receives. Will remove prandial insulin coverage as a precaution. Advised RN to encourage PO intake today in order to avoid hypoglycemia and to monitor of s/s hypo- 2/4 * 43 year old found down at home for unknown period of time with empty insulin pump. Admitted to ICU for DKA and started on insulin drip. Anion gap closing this AM. Insulin drip running at ~4 units/hr this AM. Patient also with dextrose fluids continued per DKA protocol at 175 ml/hr. Discussed with RN and patient unable to provide insulin doses she receives via insulin pump at this time. No history from recent admissions regarding settings. * Reasonable to start basal insulin now. Insulin drip running at ~5 unit/hr later this AM which is equivalent to ~120 units/day of insulin. Will reduce by ~50% due to IVF with dextrose and another ~25% due to limited oral intake and give 45 units x 1 now PLAN FOR INPATIENT GLYCEMIC CONTROL: * Basal insulin * Lantus 24 units SQ x 1 given this AM; will reduce to 16 units daily starting tomorrow * Bolus insulin * NovoLog per scale ACHS or Q6hrs while NPO * Goal Range: Low 120 mg/dL - High 220 mg/dL * Correction Factor: 45 mg/dL/unit * Nutritional / Prandial insulin per carb ratio: no carb coverage for the remainder of the day due to basal heavy dose this AM; will resume 1 unit per 15 grams CHO tomorrow AM.
[2023-07-05] MEDS ORDERED: hydrALAZINE HCL 20 MG/ML VIAL IV PRN (13:11)
[2023-07-05] MEDS: lisinopril 5 MG TAB PO ONE (14:10)
[2023-07-05] MEDS: DEXTROSE 50% 50 ML SYRINGE IV PRN (16:24)
--- NOTE | 2023-07-05 16:37 | Hospitalist Progress Note ---
Date of Service July 05, 2023 Assessment & Plan (1) DKA (diabetic ketoacidosis): Plan: DKA, type I DM Patient was found down, CK is elevated 849 mild rhabdo Patient started on insulin drip, calcium gluconate given -Insulin gtt. DKA protocol started on D5, gap closed, drip titrated to off, glargine given Potassium is mildly low will augment po Patient has multiple admissions for DKA and unfortunately multiple AMA discharges. did see hospital educator and did show some inconsistency with dexcom use. outpt regimen is to be determined per hospital educator note . (2) Hyperkalemia: Plan: Hyperkalemia With DKA, profound volume contraction, and ARF EKG with peaked T waves, sinus tachycardia Received calcium gluconate in ER resolved (3) Unresponsive: Plan: Unresponsive/obtunded, hypothermic With profound volume contraction, DKA clearing mentation. (4) GERD (gastroesophageal reflux disease): Plan: History of GERD/hematemesis On hospital admission 05/02/2023 patient had dark coffee-ground emesis on her initial evaluation with a history of GERD and daily aspirin use She was continued on PPI twice daily at that time however left AMA. PPI twice daily resumed (5) Substance abuse: Plan: History of drug use: Patient denies history of drug use, has had UDS positive for amphetamines. UDS on admit positive for amphetamine. Tylenol/aspirin/alcohol level pending Tobacco abuse. Cessation encouraged, nicotine patch as needed Plan DVT prophylaxis: Heparin SQ CODE STATUS: Full code Admission and Anticipated Discharge Date Admission Date: July 03, 2023 Subjective pt is awake and alert , still not eating well, no abdominal pain. Physical Exam Physical Exam: still tachycardic, some elevated blood pressure Results & Data Results & Data Vital Signs (Past 12 Hours) Vital Signs Temp Pulse Resp BP Pulse Ox O2 Del Method 07/05/23 08:00 148/82 H 07/05/23 08:00 99.3 F 106 H 21 97 Room Air 07/05/23 07:30 168/91 H 07/05/23 07:30 99.5 F 112 H 26 H 97 07/05/23 07:00 99.5 F 104 H 15 98 Laboratory Results reviewed chemistry PG Care Time/CCT Total # of Minutes Spent Total Time Spent with Patient: Total time spent is greater than 50% in coordination of care (as documented) at patient's floor/unit and/or counseling patient: Coding Level of Care Code 49078 SUB INP/OBS CARE 50MIN Diagnoses DKA (diabetic ketoacidosis) E13.10 Diabetes mellitus complication detail: without coma Diabetes mellitus type: other specified (including VIANNEY) Hyperkalemia E87.5 Unresponsive R41.89 GERD (gastroesophageal reflux disease) K21.9 Substance abuse F19.10 (1) DKA (diabetic ketoacidosis) Diabetes mellitus complication detail: without coma Diabetes mellitus type: other specified (including VIANNEY) Qualified Code(s): E13.10 - Other specified diabetes mellitus with ketoacidosis without coma
[2023-07-06 05:11] LABS: Creatinine Clr Calc Pharmacy 127.7 ml/min; Est GFR (African American) 138.4 ml/min; Est GFR (Non-African American) 119.4 ml/min; Magnesium 1.8 mg/dl (1.7-2.4); Phosphorus 1.9 mg/dl (2.5-4.9); Potassium 3.3 mmol/L (3.5-5.1)
[2023-07-06] MEDS ORDERED: INSULIN ASPART PER UNIT CHARGE SC SCH (08:00)
[2023-07-06] MEDS: LANTUS PER UNIT CHARGE SC SCH (08:24)
[2023-07-06] MEDS: INSULIN ASPART PER UNIT CHARGE SC SCH (08:25)
[2023-07-06 08:38] VITALS: TEMP 99.5; O2SAT 96
[2023-07-06] MEDS ORDERED: POTASSIUM PHOS 3 MMOL/1 ML INFUSION IV STA (09:06)
[2023-07-06] MEDS: POTASSIUM PHOSPHATE 21 MMOL in SODIUM CHLORIDE 0.9% 500 ML IV ONE (10:09)
[2023-07-06] MEDS: lisinopril 5 MG TAB PO SCH (10:09)
[2023-07-06] MEDS: POTASSIUM CHLORIDE CRTAB 20 MEQ TABCR PO STA (12:07)
[2023-07-06] MEDS: POT PHOSPHATE MONOBASIC W/ SOD TAB PO ONE (12:07)
--- NOTE | 2023-07-06 12:07 | Pharmacy Report ---
Pharmacy Glycemic Short Note 2 - Date of Service July 06, 2023 - Glycemic Short BSG Results (Last 24 hours): 07/05/23 07/05/23 07/05/23 16:19 16:20 16:43 Glucose POC Glucose 47 L* 53 L* 235 H 07/05/23 07/05/23 07/05/23 16:44 19:59 23:53 Glucose POC Glucose 199 H 162 H 79 07/06/23 07/06/23 07/06/23 04:07 04:20 07:25 Glucose 145 H POC Glucose 157 H 110 H 07/06/23 07/06/23 08:53 11:08 Glucose POC Glucose 165 H 113 H OUTPATIENT ANTIDIABETIC REGIMEN: * Insulin pump (Lispro): * Basal rate: 15.55 units/day * Carb ratio: 1 unit per 15 grams CHOs consumed ASSESSMENT: 07/06 * 34 units SQ insulin given over last 24 hours while tolerating a diet * Fasting BSG 110 this AM with 24 units basal on board. Will lessen basal dose today to bring it more in line with outpt dose delivered by pump. Patient did experience hypoglycemia prior to dinner yesterday and this was likely due to excess basal as prandial insulin was intentionally omitted due to concerns for hypoglycemia. * Will resume prandial insulin today using same outpt carb ratio 2/5 * BSGs acceptable over the last 24 hrs * Patient received a larger basal dose yesterday AM and transitioned off the insulin drip. IV dextrose containing fluids were continued due to concerns for hypoglycemia risks due to size of insulin dose as well as poor PO intake. * This AM, Lantus was dosed using patient weight and factored in stopping dextrose containing IVFs. * I was able to speak with the patient this afternoon regarding her insulin pump. We interrogated her pump at bedside and determined what her basal rates have been over the last week and she was able to provide info regarding her carb counting practices. * Her BSGs are trending down at this time, the dose of basal insulin delivered this AM is greater than what she typically receives. Will remove prandial insulin coverage as a precaution. Advised RN to encourage PO intake today in order to avoid hypoglycemia and to monitor of s/s hypo- 2/4 * 43 year old found down at home for unknown period of time with empty insulin pump. Admitted to ICU for DKA and started on insulin drip. Anion gap closing this AM. Insulin drip running at ~4 units/hr this AM. Patient also with dextrose fluids continued per DKA protocol at 175 ml/hr. Discussed with RN and patient unable to provide insulin doses she receives via insulin pump at this time. No history from recent admissions regarding settings. * Reasonable to start basal insulin now. Insulin drip running at ~5 unit/hr later this AM which is equivalent to ~120 units/day of insulin. Will reduce by ~50% due to IVF with dextrose and another ~25% due to limited oral intake and give 45 units x 1 now PLAN FOR INPATIENT GLYCEMIC CONTROL: * Basal insulin * Lantus 10 units x 1 this AM; moving forward I anticipate patient to require 10-16 units Q AM * Bolus insulin * NovoLog per scale ACHS or Q6hrs while NPO * Goal Range: Low 120 mg/dL - High 160 mg/dL * Correction Factor: 40 mg/dL/unit * Nutritional / Prandial insulin per carb ratio: 1 unit per 15 grams CHO
[2023-07-06 13:00] VITALS: BP 138/89; PULSE 102; RESP 25
--- NOTE | 2023-07-06 18:27 | Discharge Summary ---
Date of Service July 06, 2023 Admission HPI Per Admitting Provider Nubia is a 43-year-old female with past medical history of type 1 diabetes mellitus with hospital admissions for DKA, periodic substance abuse, hypertension, tobacco use, GERD, asthma last discharged 05/30/2023 following an admission to the ICU for DKA and who had left AMA at that time with last blood sugar of 309, bicarb 19, and anion gap of 10. Nubia is seen at the bedside in the ER. Patient is sedated and not able to give any history. She awakens transiently to voice and mumbles her name otherwise does not answer questions including orientation questions. Per nursing and EMS report patient was last seen by family / 2 days prior to day of admission. She was in her home that morning however she was not seen by family until day of admission, 07/03. Patient was found on the floor in her room unr esponsive with shallow breathing and ill appearance. EMS was called. Patient's insulin pump is set to 34 units daily however no insulin is loaded into the pump and unclear if she has recieved any insulin in the preceding days or when it was last filled. She was recently seen in the hospital in April for DKA as well had left AMA at that time and reportedly had done well for the preceding 2 weeks without diabetic complications No contact information available in the record, patient refused for collateral Medical history, medications, surgical history, family history, allergies, social history reviewed in EMR. History is limited at bedside due to mental status Social History: History of tobacco use, IV drug use methamphetamine use. Code Status: Full code Principal Diagnosis Diabetic ketoacidosis Profound metabolic acidosis Encephalopathy since resolved Discharge Exam Awake alert conversant. Seems to have understanding of the need to be more attentive to her insulin pump and her Dexcom meter Card exam is regular lungs are clear Discharge Data Allergies Allergy/AdvReac Type Severity Reaction Status Date / Time Penicillins Allergy Severe Throat Verified 07/03/23 15:35 swells shut Consultations 07/03/23 18:03 ED Decision to Admit Stat 07/03/23 19:32 Consult Box Blank Machine Operator Routine Ordered Studies 07/03/23 15:25 CT head/brain wo con Stat Hospital Course (1) DKA (diabetic ketoacidosis): DKA, type I DM Patient was found down, patient with profound high acidemia on presentation, treated with DKA protocol insulin drip transition to basal bolus Education with clinical informatics educator feels patient's best chance is to return to her insulin pump patient feels she has all the supplies at home and will black pickler her Dexcom at the pharmacy which was waiting for her. Always some question of compliance with regard to this patient Patient given glargine in the morning of discharge was discharged around midday with instructions to start pump as soon as possible and be in touch with diabetic education as need be. Patient has multiple admissions for DKA and unfortunately multiple AMA discharges. (2) Hyperkalemia: Hyperkalemia resolved with treatment of acidemia Treated appropriately 1 high did have EKG changes initially (3) Unresponsive: Unresponsive/obtunded, hypothermic Encephalopathy likely metabolic encephalopathy from DKA since resolved (4) GERD (gastroesophageal reflux disease): History of GERD/hematemesis On hospital admission 05/02/2023 patient had dark coffee-ground emesis on her initial evaluation with a history of GERD (5) Substance abuse: History of drug use: Patient denies history of drug use, has had UDS positive for amphetamines. UDS on admit positive for amphetamine. Tobacco abuse. Tobacco counseling given, cessation encouraged, nicotine patch as needed Plan CODE STATUS: Full code Total Time Total Time Spent Total Time Spent (In Minutes): It required greater than 30 minutes to prepare this patient for discharge. Discharge Plan Discharge Items Patient Disposition: Home - Self-Care Reason For Visit: DKA Discharge Diagnosis: diabetic ketoacidosis Activity: Resume your previous activity Non-emergency contact: Primary Care Provider and Specialist Call non-emergency contact if: your symptoms worsen Follow-up/Referrals: Ayleen Olivas PA-C [Primary Care Provider] - 07/15/23 10:30 am Diet: Carb Consistent or DM2 Addtl Attending Provider Instructions: please do not delay starting your insulin pump, as too long of a delay will likely lead to recurrence of your illness you have been started on a low dose blood pressure medicine that will also help protect your kidneys from negative affects of diabetes, follow up with your primary care to discuss further Addtl Pest Control Service Technician Provider Instructions: DIABETES: - supervisor carbon electrodes Dexcom supplies from pharmacy and restart using same. - Anytime you eat something (meal or snack) enter your blood sugar and amount of carbohydrate you plan to eat into the pump. Carbohydrate foods include all of the following: - Grains (bread, cereal, pasta, rice, pancakes, pretzels, etc.) - Dried beans and lentils (kidney beans, garbanzo beans, etc.) - Starchy vegetables (corn, peas, potatoes, leo beans) - Fruit - Milk, yogurt, pudding - Desserts (candy, ice cream, donuts, pastries) - Sugar-sweetened drinks - Anytime you change your infusion set, remember to go to options --> load. - Anytime your blood sugar is elevated and does not improve following correction bolus, need to think pump malfunction/bent cannula. Recommend changing your infusion set/reservoir immediately. Use a syringe to provide a correctional bolus every 4 hours until blood sugar levels are below 250. - If you have any questions, please call our diabetes office anytime at [phone]. Take Care! Pending Studies at Discharge: Yes Stand-Alone Forms: My [facility] [employer], Smoking Cessation Medications and DC Order Prescriptions: New lisinopril [Zestril] 5 mg Tablet 5 mg PO QAM Qty: 30 5RF Continued (DME) OneTouch Verio test strips Strip See Rx Instructions .Route Qty: 100 0RF Rx Instructions: As directed (DME) blood-glucose meter [OneTouch Verio Meter] Misc See Rx Instructions .Route Qty: 1 0RF Rx Instructions: As directed (DME) lancets [OneTouch Delica Lancets] 33 gauge misc See Rx Instructions .Route Qty: 100 0RF Rx Instructions: As directed insulin glargine [Lantus U-100 Insulin] 100 unit/mL solution 0 unit SUBCUT DAILY PRN (Reason: BSG CONTROL) Rx Instructions: * back up insulin---UNABLE TO VERIFY aspirin 81 mg tablet,delayed release (DR/EC) 81 mg PO DAILY Rx Instructions: UNABLE TO VERIFY famotidine 20 mg tablet 20 mg PO DAILY PRN (Reason: Acid Reflux) Rx Instructions: UNABLE TO VERIFY insulin lispro 100 unit/mL solution 0 unit continuous subcutaneous infusion CONTINOUS MDD 150 UNITS/24 HOURS Rx Instructions: INSULIN PUMP--LAST FILL AT PHARMACY 05/20/23 FOR 60 DAYS SUPPLY. albuterol sulfate 90 mcg/actuation HFA aerosol inhaler 1 - 2 puff INHALATION .Q4-6H PRN (Reason: wheezing/SOB) Rx Instructions: UNABLE TO VERIFY Discharge Orders: Discharge Order (Routine); Ordered 07/06/23 Ordered By: Fredis Stewart/Other Patient Handouts: Diabetic Ketoacidosis Admission Data Admit Date/Time: 07/03/23 18:48 Attending Provider: Fredis Ya Admit Provider: Elkin Browning Primary Care Provider: Ayleen Olivas Other Providers: Elkin Browning; Lucio Castano Other Interventions: Discharge Summary Assessment (RN) Last Done: 07/06/23 12:20 Coding Level of Care Code 21735 INP/OBS DISCH >30 MIN Diagnoses DKA (diabetic ketoacidosis) E13.10 Diabetes mellitus complication detail: without coma Diabetes mellitus type: other specified (including VIANNEY) Hyperkalemia E87.5 Unresponsive R41.89 GERD (gastroesophageal reflux disease) K21.9 Substance abuse F19.10
[2023-07-07] MEDS ORDERED: INSULIN ASPART PER UNIT CHARGE SC SCH
[2023-07-08 16:37] LABS: Amphetamine Urine, Confirm 1474 ng/mL (<250); Methamphetamine, Ur Confirm 3954 ng/mL (<250)
== END 2023-07-06 13:01 | disposition home or self-care (01) | DRG 638 ==
LOC: ED 15:10 → SUATTDRO 18:48 → 1E 18:48